=== PATIENT | female | born 1975 | race Caucasian/White ===

== ENCOUNTER 2021-12-19 07:28 | Emergency (ER) | payer SELFPAY ==
--- OUTSIDE RECORDS SUMMARY | 2021-12-19 07:32 | XMS REPORT | Continuity of Care Document ---
:1975 Author Organization [facility] t Address [facility] [address] [place] [address] [place] [address] Care Team Providers Name Role Phone Unavailable Unavailable Unavailable Problems This patient has no known problems. Allergies, Adverse Reactions, Alerts This patient has no known allergies or adverse reactions. Medications This patient has no known medications. Procedures This patient has no known procedures. Results Test Description Test Time Test Comments Results Result Comments Source PAP TEST, THINPREP, IMAGED 2021-10-20 23:01:42 Test Item Value Reference Range Interpretation Comme nts SOURCE: (test code = Cervical 8001) SLIDES: (test code = 1 8011) LMP: (test code = 8021) 09/30/2021 SPECIMEN ADEQUACY: (test (NOTE) Satisfactory for code = 64845) evaluation. Endocervical cells/transform ation zone component not i dentified. INTERPRETATION: (test NILM/NO EPITH. ---- code = 64553) ABNORMALITY;SEE BELOW ----- ------ NEG ATIVE FOR INTRAEPITHELIAL LESION OR MALIGNANCY (NIL M) --------- OTHER COMMENTS: (test (NOTE) Backgr ound material consistent code = 8081) with lubricant is present, whichinterferes with specimen processing. 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 The Pap test is a screening leonid t with an inherent, but l ow probability of error. Your patient should be reminded to consult you im mediately if she experiences any suspicious signs or sympto ms, regardless of her Pap test re sult. An alternate repor t format containing imag es or consolidated prior Pap history is avai lable as applicable. UNLESS OTHERWISE INDIC ATED, ALL TESTING PERFORMED [facility] PATHOLOGY [facility], [facility]. [address] [place] [address] 54 LABORATORY DIRE CTOR: FAROOQ DUBON M.D. CLIA NUMBER [id number] [facility] [place]. [id number] CT/NG, TMA, [id number] 22:56:05 Test Item Value Reference Range Interpretation Comments GONORRHEA, TMA NEGATIVE NEGATIVE Assay m ethodology is (test code = nucleic acid am plification 57367) by transcriptio n mediated amplif ication (TMA) utilizing the Aptima Combo 2 Assay. CHLAMYDIA, TMA NEGATIVE NEGATIVE Assay m ethodology is (test code = nucleic acid am plification 62811) by transcriptio n mediated amplif ication (TMA) utilizing the Aptima Combo 2 Assay. VAGINAL PATHOGENS DNA [id number] 13:32:16 Test Item Value Reference Range Interpretation Comments STEPHANIE SPECIES (test code = ) NEGATIVE NEGATIVE G. VAGINALIS (test code = ) POSITIVE NEGATIVE A T. VAGINALIS (test code = ) NEGATIVE NEGATIVE CBC W/AUTO DIFF WITH [id number] 04:08:11 Test Item Value Reference Range Interpretation Comments WBC (test code = 2.8 K/UL 3.5-11.0 L 1001) RBC (test code = 3.79 M/UL 3.80-5.40 L 1002) HEMOGLOBIN (test 8.4 G/DL 11.5-15.5 L code = 1003) HEMATOCRIT (test 27.8 % 34.0-45.0 L code = 1004) MCV (test code = 73.4 fL 80.0-99.0 L 1005) MCH (test code = 22.2 PG 25.0-33.0 L 1006) MCHC (test code = 30.2 G/DL 31.0-36.0 L 1007) RDW (test code = 18.0 % 11.5-15.0 H 1038) NEUTROPHILS (test 45.3 % code = 1008) LYMPHOCYTES (test 37.0 % code = 1010) MONOCYTES (test code 14.1 % = 1011) EOSINOPHILS (test 1.8 % code = 1012) BASOPHILS (test code 1.8 % = 1013) IMMATURE 0.0 % GRANULOCYTES (test code = 1036) NUCLEATED RBCS (test 0.0 /100 See_Comment [Autom ated message] code = 1065) WBC'S The system CodeRyte generated this result transmitted ref erence range: 0.0. The reference range was not used to int erpret this result as normal/abnormal . PLATELET COUNT (test 266 K/UL 130-400 code = 1015) ABSOLUTE NEUTROPHILS 1.29 K/UL 1.50-7.50 L (test code = 1066) ABSOLUTE LYMPHOCYTES 1.05 K/UL 1.00-4.00 (test code = 1067) ABSOLUTE MONOCYTES 0.40 K/UL 0.20-1.00 (test code = 1068) ABSOLUTE EOSINOPHILS 0.05 K/UL 0.00-0.50 (test code = 1040) ABSOLUTE BASOPHILS 0.05 K/UL 0.00-0.20 (test code = 1069) ABS IMMATURE 0.00 K/UL 0.00-0.10 GRANULOCYTES (test code = 1020) ABS NUCLEATED RBCS 0.00 K/UL 0.00-0.11 UN LESS (test code = 73022) OTHERWIS E INDICATED, ALL TESTING PER [facility]MED [facility] [place]. [address] [facility] [place] [address] LABORATORY DIRE CTOR: FAROOQ MULTANI M.D. CLIA NUMBER [id number] [place] O. [id number] RPR REFLEX TO T. PALLIDUM - [id number] 03:20:46 Test Item Value Reference Range Interpretation Comments RPR (test code = 05354) NON-REACTIVE NON-REACTIVE RPR TITER (test code = 3500) NOT INDIC. TITER NOT INDIC. HIV 1/2 4TH GEN, RFLX [id number] 03:09:58 Test Item Value Reference Range Interpretation Comments HIV 1/2 4TH GEN, RFLX CONF (test NON-REACTIVE NON-REACTIVE code = 3514) HEPATITIS PANEL, [id number] 03:09:58 Test Item Value Reference Range Interpretation Comments HEPATITIS A IgM (test NON-REACTIVE NON-REACTIVE code = 42332) HEPATITIS B CORE IgM NON-REACTIVE NON-REACTIVE (test code = 4644) HEPATITIS B SURF AG NON-REACTIVE NON-REACTIVE (test code = 2739) HEPATITIS C ANTIBODY NON-REACTIVE NON-REACTIVE (test code = 4675) INTERPRETATION (NOTE) Hepatiti s A HEPATITIS A: (test code sero logy shows no = 2552) evidence of acu te hepatitis A. INTERPRETATION (NOTE) Hepatiti s B HEPATITIS B: (test code sero logy shows no = 08712) evidence of acu te hepatitis B and no indication of exposure to hepatitis B vir us in the previous steph eight months. INTERPRETATION (NOTE) Hepatiti s C HEPATITIS C: (test code sero logy shows no = 00011) evidence of exposure to hepatitisC viru s at this time. It can take up to 12 months after exposure tothe hepatitis C vir us for antibodies to become detectab le in the bloo d in certain patients. VAGINAL PATHOGENS DNA [id number] 14:28:58 Test Item Value Reference Range Interpretation Comments STEPHANIE SPECIES (test POSITIVE NEGATIVE A code = 76367) G. VAGINALIS (test POSITIVE NEGATIVE A code = ) T. VAGINALIS (test NEGATIVE NEGATIVE UN LESS OTHERWISE code = 03028) INDICATED, ALL TESTING PERFORMED [facility] [address] [place] [address], [place] [address] LABORATORY DIR LOWELL: FAROOQ MULTANI M.D. ALEX NUMBER [id number] CAP ACCREDITATION N O. [id number]
[2021-12-19 08:07] LABS: Absolute Lymphocytes (CBC) 1.8 K/uL (0.7-4.9); Hematocrit 30.4 % (36.0-45.0); Lymphocytes % 36.6 % (15.3-44.8); MPV 7.7 fL (7.6-11.3); RBC Red Blood Cell Count 4.23 M/uL (3.86-4.86)
--- NOTE | 2021-12-19 08:10 | RAD REPORT ---
EXAM DESCRIPTION: Monica Single View12/19/2021 8:02 am CLINICAL HISTORY: Hypertension COMPARISON: none FINDINGS: The lungs appear clear of acute infiltrate. The heart is normal size IMPRESSION: No acute abnormalities displayed
[2021-12-19 08:34] LABS: Potassium 3.6 mmol/L (3.5-5.1); Troponin High Sensitivity 6.1 pg/mL (<58.9)
[2021-12-19] MEDS ORDERED: cloNIDine HCL 0.1 MG TAB ONE (09:40)
--- NOTE | 2021-12-19 10:05 | EDPHYS ---
Physician Documentation [facility] Name: Andressa Hutchinson Age: 46 yrs Sex: Female : 1975 Arrival Date: 12/19/2021 Time: 07:31 Bed 24 Private MD: ED Physician Thom Fishman HPI: 12/19 09:23 This 46 yrs old Female presents to ER via Ambulatory with complaints of Nausea, High rn Blood Pressure. 09:23 This 46 yrs old Female presents to ER via Ambulatory with complaints of high blood rn pressure, chest pain. 09:24 The patient has elevated blood pressure and discovered this at home. Onset: The rn symptoms/episode began/occurred at an unknown time. Modifying factors: The symptoms are aggravated by discontinuation of meds, The symptoms are alleviated by prescription meds. Associated signs and symptoms: Pertinent positives: chest pain, nausea, Pertinent negatives: dyspnea, visual changes, weakness. Severity of symptoms: At its worst the blood pressure was severe, in the emergency department the blood pressure is improved. The patient has experienced similar episodes in the past. The patient has been recently seen by a physician:. Pt reports high blood pressure at home, began to feel chest tightness and nausea, got concerned because mother had uncontrolled BP problems that led to strokes and dialysis. Just had her medication changed by pcp, just started new med, is scared to take it so hasn't been taking it regularly or as prescribed. Chest tightness already resolved. No sob. No focal weakness or neuro complaint. . 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 - Social history:: Smoking status: Patient reports the use of cigarette tobacco products, smokes one-half pack cigarettes per day. - Family history:: not pertinent. - Hospitalizations: : No recent hospitalization is reported. ROS: 09:24 Constitutional: Negative for fever, chills, and weight loss, Eyes: Negative for injury, rn pain, redness, and discharge, ENT: Negative for injury, pain, and discharge, Neck: Negative for injury, pain, and swelling, Cardiovascular: Negative for chest pain, palpitations, and edema, Respiratory: Negative for shortness of breath, cough, wheezing, and pleuritic chest pain, Abdomen/GI: Negative for abdominal pain, vomiting, diarrhea, and constipation, Back: Negative for injury and pain, : Negative for injury, bleeding, discharge, and swelling, MS/Extremity: Negative for injury and deformity, Skin: Negative for injury, rash, and discoloration, Neuro: Negative for weakness, numbness, tingling, and seizure. Exam: 09:24 Constitutional: This is a well developed, well nourished patient who is awake, alert, rn and in no acute distress. Head/Face: Normocephalic, atraumatic. Eyes: Pupils equal round and reactive to light, extra-ocular motions intact Neck: Trachea midline, no thyromegaly or masses palpated, and no cervical lymphadenopathy. Supple, full range of motion without nuchal rigidity, or vertebral point tenderness. No Meningismus. Cardiovascular: Regular rate and rhythm. No pulse deficits. Respiratory: No increased work of breathing, no retractions or nasal flaring. Abdomen/GI: Soft, non-tender Skin: Warm, dry with normal turgor. Normal color with no rashes, no lesions, and no evidence of cellulitis. MS/ Extremity: Pulses equal, no cyanosis. Neurovascular intact. Full, normal range of motion. Equal circumference. Neuro: Awake and alert, GCS 15, oriented to person, place, time, and situation. Cranial nerves II-XII grossly intact. Motor strength 5/5 in all extremities. Sensory grossly intact. Cerebellar exam normal. Vital Signs: 07:35 BP 173 / 91; Pulse 89; Resp 16; Temp 97.9; Pulse Ox 100% on R/A; Weight 82.55 kg; bp Height 5 ft. 2 in. (157.48 cm); Pain 5/10; 08:30 BP 156 / 110; Pulse 77; Resp 17; Pulse Ox 100% ; bp 09:30 BP 145 / 95; Pulse 80; Resp 16; Pulse Ox 98% ; bp 10:30 BP 142 / 94; Pulse 77; Resp 16; Pulse Ox 98% ; bp 07:35 Body Mass Index 33.29 (82.55 kg, 157.48 cm) bp MDM: 07:32 Patient medically screened. rn 10:03 Differential diagnosis: hypertensive crisis, Malignant HTN. Data reviewed: vital signs, rn nurses notes, lab test result(s), EKG, radiologic studies, and as a result, I will discharge patient. Counseling: I had a detailed discussion with the patient and/or guardian regarding: the historical points, exam findings, and any diagnostic results supporting the discharge/admit diagnosis, lab results, radiology results, the need for outpatient follow up, to return to the emergency department if symptoms worsen or persist or if there are any questions or concerns that arise at home. Counseling: I had a detailed discussion with the patient and/or guardian regarding: the presence of at least one elevated blood pressure reading (>120/80) during this emergency department visit. Response to treatment: the patient's symptoms have resolved after treatment, and as a result, I will discharge patient. Special discussion: I discussed with the patient/guardian in detail that at this point there is no indication for admission to the hospital. It is understood, however, that if the symptoms persist or worsen the patient needs to return immediately for re-evaluation. Based on the history and exam findings, there is no indication for further emergent testing or inpatient evaluation. I discussed with the patient/guardian the need to see the primary care provider for further evaluation of the symptoms. 12/19 07:43 Order name: Basic Metabolic Panel; Complete Time: 08:50 rn 12/19 07:43 Order name: CBC with Diff; Complete Time: 08:19 rn 12/19 07:43 Order name: Troponin HS; Complete Time: 08:50 rn 12/19 07:43 Order name: XRAY Chest (1 view); Complete Time: 08:19 rn 12/19 07:43 Order name: EKG; Complete Time: 07:44 rn 12/19 07:43 Order name: Cardiac monitoring; Complete Time: 08:15 rn 12/19 07:43 Order name: EKG - Nurse/Tech; Complete Time: 08:15 rn 12/19 07:43 Order name: IV Saline Lock; Complete Time: 08:15 rn 12/19 07:43 Order name: Labs collected and sent; Complete Time: 08:15 rn 12/19 07:43 Order name: O2 Per Protocol; Complete Time: 08:15 rn 12/19 07:43 Order name: O2 Sat Monitoring; Complete Time: 08:15 rn Administered Medications: 09:30 Drug: cloNIDine 0.1 mg Route: PO; bp 10:36 Follow up: Response: No adverse reaction bp Disposition Summary: 12/19/21 10:04 Discharge Ordered Location: Home rn Problem: new rn Symptoms: have improved rn Condition: Stable rn Diagnosis - Essential (primary) hypertension rn - Chest pain, unspecified rn Followup: rn - With: Private Physician - When: As needed - Reason: Recheck today's complaints, Re-evaluation by your physician Discharge Instructions: - Discharge Summary Sheet rn - Nonspecific Chest Pain, Adult rn - Hypertension, Adult rn Forms: - Medication Reconciliation Form rn - Thank You Letter rn - Antibiotic international controller - Prescription Opioid Use rn Signatures: Dispatcher [employer] EDThom Prater MD MD rn Peltier, Brian RN Socorro Costello RN RN vg1 Corrections: (The following items were deleted from the chart) 07:48 07:48 Allergies: No Known Allergies; vg1 vg1
--- NOTE | 2021-12-19 10:05 | ER ---
Nurse's Notes [facility] Name: Andressa Hutchinson Age: 46 yrs Sex: Female : 1975 Arrival Date: 12/19/2021 Time: 07:31 Bed 24 Private MD: Diagnosis: Essential (primary) hypertension;Chest pain, unspecified Presentation: 12/19 07:35 Chief complaint: Patient states: Woke up around 0300 feeling nauseated, chest tightness vg1 and headache, checked BP and stated 179/120, took BP medication of Chlorthalidone at 0430; stated still feeling nauseated and headache. 07:35 Coronavirus screen: Vaccine status: Patient reports receiving the 2nd dose of the covid vg1 vaccine. Client denies travel out of the [place] in the last 14 days. Ebola Screen: Patient denies exposure to infectious person. Patient denies travel to an Ebola-affected area in the 21 days before illness onset. Initial Sepsis Screen: Does the patient meet any 2 criteria? No. Patient's initial sepsis screen is negative. Does the patient have a suspected source of infection? No. Patient's initial sepsis screen is negative. Risk Assessment: Do you want to hurt yourself or someone else? Patient reports no desire to harm self or others. Onset of symptoms was December 19, 2021. 07:35 Method Of Arrival: Ambulatory vg1 07:35 Acuity: J LUIS 3 vg1 Triage Assessment: 07:48 General: Appears uncomfortable, Behavior is calm, cooperative. Pain: Complains of pain vg1 in chest Pain does not radiate. GI: Reports nausea. 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 - Social history:: Smoking status: Patient reports the use of cigarette tobacco products, smokes one-half pack cigarettes per day. - Family history:: not pertinent. - Hospitalizations: : No recent hospitalization is reported. Screenin:55 Abuse screen: Denies threats or abuse. Denies injuries from another. Nutritional bp screening: No deficits noted. Tuberculosis screening: No symptoms or risk factors identified. Fall Risk None identified. Assessment: 07:55 General: SEE TRIAGE NOTE. bp 09:30 Reassessment: No changes from previously documented assessment. Patient and/or family bp updated on plan of care and expected duration. Pain level reassessed. GI: Abdomen is non-distended. 10:35 Reassessment: PT D/C HOME AMBULATORY, DX WITH ESSENTIAL HTN. bp Vital Signs: 07:35 BP 173 / 91; Pulse 89; Resp 16; Temp 97.9; Pulse Ox 100% on R/A; Weight 82.55 kg; bp Height 5 ft. 2 in. (157.48 cm); Pain 5/10; 08:30 BP 156 / 110; Pulse 77; Resp 17; Pulse Ox 100% ; bp 09:30 BP 145 / 95; Pulse 80; Resp 16; Pulse Ox 98% ; bp 10:30 BP 142 / 94; Pulse 77; Resp 16; Pulse Ox 98% ; bp 07:35 Body Mass Index 33.29 (82.55 kg, 157.48 cm) bp ED Course: 07:31 Patient arrived in ED. rg4 07:32 Thom Fishman MD is Attending Physician. rn 07:33 Evan Partida, MELLY is Primary Nurse. bp 07:47 Triage completed. vg1 07:48 Arm band placed on. vg1 07:55 Patient has correct armband on for positive identification. Bed in low position. Call bp light in reach. Side rails up X2. 07:55 Inserted saline lock: 20 gauge in right forearm, using aseptic technique. Blood bp collected. 08:01 XRAY Chest (1 view) In Process Unspecified. EDMS 10:35 No provider procedures requiring assistance completed. IV discontinued, intact, bp bleeding controlled, No redness/swelling at site. Pressure dressing applied. Administered Medications: 09:30 Drug: cloNIDine 0.1 mg Route: PO; bp 10:36 Follow up: Response: No adverse reaction bp Medication: 07:55 VIS not applicable for this client. bp Outcome: 10:04 Discharge ordered by . rn 10:35 Discharged to home ambulatory. bp 10:35 Condition: stable 10:35 Discharge instructions given to patient, Instructed on discharge instructions, follow up and referral plans. Demonstrated understanding of instructions, follow-up care. 10:37 Patient left the ED. bp Signatures: Dispatcher [employer] EDMS Thom Fishman MD MD rn Mai Baker rg4 Evan Partida RN RN bp Socorro Baker RN RN vg1 Corrections: (The following items were deleted from the chart) 07:48 07:48 Allergies: No Known Allergies; vg1 vg1 10:36 07:35 BP 173 / 91; Pulse 89bpm; Resp 16bpm; Pulse Ox 100% RA; 82.55 kg; Height 5 ft. 2 bp in.; BMI: 33.2; Pain 5/10; vg1
[2021-12-19 11:06] VITALS: TEMP 97.9
[2021-12-19 11:09] VITALS: O2SAT 98
[2021-12-19 11:10] VITALS: BP 142/94
--- NOTE | 2021-12-20 11:09 | EKG ---
Test Date: 2021-12-19 Test Time: 07:39:31 Global Marketing Operations Manager: BP MEASUREMENT RESULTS: Intervals: Rate: 81 ID: [id number] QRSD: 94 QT: 356 QTc: 413 [place]: P: 54 ID: [id number] QRS: 62 T: 62 INTERPRETIVE STATEMENTS: Normal sinus rhythm Normal ECG No previous ECG available for comparison Electronically Signed On 12-20-21 11:05:11 CDT by Hollis Hoang
== END 2021-12-19 10:37 | disposition home or self-care (01) ==
LOC: ER 07:28
DX: I10 Essential (primary) hypertension (principal); R07.9 Chest pain, unspecified; F17.210 Nicotine dependence, cigarettes, uncomplicated
CPT/HCPCS: 36415; 71045; 80048; 84484; 85025; 93005; 99284

== ENCOUNTER 2023-04-17 11:10 | Emergency (ER) | payer SELFPAY ==
[2023-04-17] MEDS ORDERED: MORPHINE 4 MG/ML SYR ONE (11:34)
[2023-04-17] MEDS ORDERED: ONDANSETRON 4 MG/2 ML VIAL ONE (11:34)
[2023-04-17 11:42] LABS: Absolute Lymphocytes (CBC) 1.3 K/uL (0.7-4.9); Hematocrit 35.2 % (36.0-45.0); Lymphocytes % 21.2 % (15.3-44.8); MCV 87.2 fL (80-100); Platelets 296 thou/uL (152-406); RBC Red Blood Cell Count 4.04 M/uL (3.86-4.86)
[2023-04-17 11:46] LABS: Specific Gravity 1.028 (1.005-1.030); Urine Bacteria <20 /HPF (<20); Urine Bilirubin NEGATIVE (Negative); Urine Blood 1+ (Negative); Urine Clarity Clear (Clear); Urine Color Light-Yellow (Yellow); Urine Glucose NEGATIVE (Negative); Urine Mucus Slight /HPF (None Seen); Urine Protein TRACE (Negative); Urine RBC <5 /HPF (None Seen); Urine Urobilinogen Normal (Normal)
[2023-04-17 12:01] LABS: Albumin 3.8 g/dL (3.4-5.0); Bilirubin Total 0.4 mg/dL (0.2-1.0); Potassium 3.6 mEq/L (3.5-5.1); Protein, Total 7.6 g/dL (6.4-8.2)
[2023-04-17 12:02] LABS: Specific Gravity 1.028 (1.005-1.030)
--- OUTSIDE RECORDS SUMMARY | 2023-04-17 12:42 | XMS REPORT | Continuity of Care Document ---
:1975 Author Organization [facility] Address [address] [place] [address] [place] [address] Care Team Providers Name Role Phone Unavailable Unavailable Unavailable Problems This patient has no known problems. Allergies, Adverse Reactions, Alerts This patient has no known allergies or adverse reactions. Medications This patient has no known medications. Procedures This patient has no known procedures. Encounters Start End Encounter Admission Attending Care Care Encounter Source Date/Time Date/Time Type Type Clinicians Facility Department ID 2023-04-16 2023-04-16 Outpatient [facility] 09:50:46 09:50:46 [id number] [facility] 2023-04-03 2023-04-03 Outpatient SFA [facility] 10:10:27 10:10:27 [id number] [facility] [place] 2023-04-02 2023-04-02 Outpatient SFA [facility] 13:15:21 13:15:21 [id number] [facility] 2023-03-31 2023-03-31 Outpatient SFA [facility] [place] 13:36:53 13:36:53 [id number] [facility] 2023-02-16 2023-02-16 Outpatient SFA [facility] [place] 09:39:58 09:39:58 [id number] [facility] 2023-01-13 2023-01-13 Outpatient SFA [facility] [place] 09:35:46 09:35:46 [id number] [facility] 2022-11-16 2022-11-16 Outpatient SFA SFA [id number] [place] 10:58:30 10:58:30 [id number] [facility] 2022-08-08 2022-08-08 Outpatient SFA SFA [id number] [place] 15:32:54 15:32:54 [id number] [facility] 2022-07-25 2022-07-25 Outpatient SFA SFA [id number] [place] 13:27:49 13:27:49 [id number] [facility] [place] 2022-06-20 2022-06-20 Outpatient [facility] [place] 16:28:05 16:28:05 [facility] [place] 2022-06-16 2022-06-16 Outpatient [facility] [place] 16:46:34 16:46:34 [facility] [place] 2022-05-02 2022-05-02 Outpatient [facility] [place] 15:35:31 15:35:31 [facility] [place] Results Test Description Test Time Test Comments Results Result Comments Source CBC W/AUTO DIFF WITH PLATELETS 2023-04-04 03:35:44 Test Item Value Reference Range Interpretation Comme nts WBC (test code = 1001) 3.5 K/UL 3.5-11.0 RBC (test code = 1002) 3.63 M/UL 3.80-5.40 L HEMOGLOBIN (test code = 10.6 G/DL 11.5-15.5 L 1003) HEMATOCRIT (test code = 32.7 % 34.0-45.0 L 1004) MCV (test code = 1005) 90.1 fL 80.0-99.0 MCH (test code = 1006) 29.2 PG 25.0-33.0 MCHC (test code = 1007) 32.4 G/DL 31.0-36.0 RDW (test code = 1038) 13.1 % 11.5-15.0 NEUTROPHILS (test code = 52.9 % 1008) LYMPHOCYTES (test code = 33.0 % 1010) MONOCYTES (test code = 1011) 11.6 % EOSINOPHILS (test code = 1.1 % 1012) BASOPHILS (test code = 1013) 1.4 % IMMATURE GRANULOCYTES (test 0.0 % code = 1036) NUCLEATED RBCS (test code = 0.0 /100 WBC'S See_Comment [Automated message] The 1065) system which ge nerated this result transmit jaz reference range: 0.0. The reference range was not u sed to interpret this result as normal/abnormal . PLATELET COUNT (test code = 342 K/UL 583-497 6242) ABSOLUTE NEUTROPHILS (test 1.86 K/UL 1.50-7.50 code = 1066) ABSOLUTE LYMPHOCYTES (test 1.16 K/UL 1.00-4.00 code = 1067) ABSOLUTE MONOCYTES (test 0.41 K/UL 0.20-1.00 code = 1068) ABSOLUTE EOSINOPHILS (test 0.04 K/UL 0.00-0.50 code = 1040) ABSOLUTE BASOPHILS (test 0.05 K/UL 0.00-0.20 code = 1069) ABS IMMATURE GRANULOCYTES 0.00 K/UL 0.00-0.10 (test code = 1020) ABS NUCLEATED RBCS (test 0.00 K/UL 0.00-0.11 UN LESS OTHERWISE INDICATED, code = 92691) ALL TESTING PE RFORMED AT [facility] PATHOL [facility], [facility]. [address] [place], [place] [address] LABORATORY DIRE CTOR: PEBBLES BAPTISTE M.D. CLIA NUMBER [id number] CAP ACCREDITATION N O. [id number] VAGINAL PATHOGENS DNA [id number] 11:15:25 Test Item Value Reference Range Interpretation Comments JANENE SPECIES NEGATIVE NEGATIVE (test code = ) G. VAGINALIS POSITIVE NEGATIVE A (test code = ) T. VAGINALIS NEGATIVE NEGATIVE Note: The BD A ffirm VPIII (test code = Microbial Ident ification ) Testis a DNA pr obe test intended for us e in the detectionand id entification of Janene spec ies, Gardnerellavagi nalis and Trichomonas vag inalis nucleic acid. U NLESS OTHERWISE INDIC ATED, ALL TESTING PERFORM ED AT [facility] PATHOL [facility]. [address] [place], [place] [address] LABORATORY DIRE CTOR: PEBBLES BAPTISTE M.D. CLIA NUMBER [id number] CAP ACCREDITATION N O. [id number] LIPID [id number] 03:55:48 Test Item Value Reference Range Interpretation Comments CHOLESTEROL (test 194 MG/DL <200 code = 2210) TRIGLYCERIDES (test 411 MG/DL <150 H code = 2232) HDL CHOLESTEROL 43 MG/DL >39 (test code = 2220) CALC LDL CHOL (test (NOTE) MG/DL <100 UNABLE T O CALCULATE A code = 2237) VALID LDL BRETT STEROL WHEN THE TRIGLYCERIDEVAL UE IS GREATER THAN 40 0 MG/DL.UNABLE TO CALCULATE A [place]OOK[place]NN ID LDL CHOLESTEROL WHE N THE TRIGLYCERIDEVAL UE IS GREATER THAN 40 0 MG/DL. NOTE: CALCULATE D LDL IS BASED ON JEFFY -CHUA METHOD WHICHINC LUDES ADJUSTABLE TRIGLYCERIDE:VL DL CHOLESTEROL RAT IO.THIS FACTOR VARIES B Y MEASURED TRIGLY CERIDE AND NON-HDLCHOL ESTEROL CONCENTRATIONS WITH INCREASED CALCU LATED LDL SEENIN HIGH ER TRIGLYCERIDE OR LOWER NON-HDL SPECIME NS. FOR MOREINFORMATION , SEE CLIENT ANNOUNCE MENT AT [email or web address] CalcLDL-C RISK RATIO LDL/HDL (NOTE) RATIO <3.22 UNABLE T O CALCULATE (test code = 2238) UNLESS OT HERWISE INDICATED, ALL TESTING PERFORMED AT [facility]. [address] [place] [address] 4 LABORATORY DIRE CTOR: PEBBLES BAPTISTE M.D. [place] NUMBER [id number] [facility] [id number] COMPREHENSIVE METABOLIC [id number] 03:07:15 Test Item Value Reference Range Interpretation Comments GLUCOSE (test code = 115 MG/DL 70-99 H 2216) BUN (test code = 20 MG/DL 6-20 2207) CREATININE (test 0.75 MG/DL 0.60-1.30 code = 2214) eGFR (2020 CKD-EPI) 101 >60 (test code = 62758) ML/MIN/1.73 CALC BUN/CREAT (test 27 RATIO 6-28 code = 2235) SODIUM (test code = 140 MEQ/L 401-690 4257) POTASSIUM (test code 4.5 MEQ/L 3.5-5.4 = 2228) CHLORIDE (test code 100 MEQ/L 95-107 = 2215) CARBON DIOXIDE (test 28 MEQ/L 19-31 code = 2206) CALCIUM (test code = 9.8 MG/DL 8.5-10.5 2208) PROTEIN, TOTAL (test 7.4 G/DL 6.1-8.3 code = 2229) ALBUMIN (test code = 4.8 G/DL 3.5-5.2 2200) CALC GLOBULIN (test 2.6 G/DL 1.9-3.7 code = 2240) CALC A/G RATIO (test 1.8 RATIO 1.0-2.6 code = 2234) BILIRUBIN, TOTAL 0.3 MG/DL See_Comment [Automated message] (test code = 2207) The syste m which generated this result transmit jaz reference range : <=1.2. The refe rence range was not u sed to interpret th is result as normal/abnormal . ALKALINE PHOSPHATASE 67 U/L 40-115 (test code = 2204) AST (test code = 23 U/L 9-40 2217) ALT (test code = 26 U/L 5-40 2218) LIPID [id number] 03:07:15 Test Item Value Reference Range Interpretation Comments CHOLESTEROL (test 210 MG/DL <200 H code = 2210) TRIGLYCERIDES (test 431 MG/DL <150 H code = 2232) HDL CHOLESTEROL 60 MG/DL >39 (test code = 2220) CALC LDL CHOL (test (NOTE) MG/DL <100 UNABLE T O CALCULATE A code = 2237) VALID LDL BRETT STEROL WHEN THE TRIGLYCERIDEVAL UE IS GREATER THAN 40 0 MG/DL.UNABLE TO CALCULATE A [place]OOK[place]NN ID LDL CHOLESTEROL WHE N THE TRIGLYCERIDEVAL UE IS GREATER THAN 40 0 MG/DL. NOTE: CALCULATE D LDL IS BASED ON JEFFY -CHUA METHOD WHICHINC LUDES ADJUSTABLE TRIGLYCERIDE:VL DL CHOLESTEROL RAT IO.THIS FACTOR VARIES B Y MEASURED TRIGLY CERIDE AND NON-HDLCHOL ESTEROL CONCENTRATIONS WITH INCREASED CALCU LATED LDL SEENIN HIGH ER TRIGLYCERIDE OR LOWER NON-HDL SPECIME NS. FOR MOREINFORMATION , SEE CLIENT ANNOUNCE MENT AT [email or web address] CalcLDL-C RISK RATIO LDL/HDL (NOTE) RATIO <3.22 UNABLE TO CALCULATE (test code = 2238) IRON, [id number] 03:07:15 Test Item Value Reference Range Interpretation Comments IRON, SERUM (test 47 UG/DL 37-145 UNLESS OT HERWISE code = 2222) INDICATED, ALL TESTING PERFORMED [facility] [address] [place] [address], [place] [id number] [place] [address] DIRECTOR: FAROOQ DUBON M.D. CLIA NUMBER [id number] CAP ACCREDITATION N O. [id number] CBC W/AUTO DIFF WITH [id number] 02:38:20 Test Item Value Reference Range Interpretation Comments WBC (test code = 5.4 K/UL 3.5-11.0 1001) RBC (test code = 4.16 M/UL 3.80-5.40 1002) HEMOGLOBIN (test code 11.8 G/DL 11.5-15.5 = 1003) HEMATOCRIT (test code 34.9 % 34.0-45.0 = 1004) MCV (test code = 83.9 fL 80.0-99.0 1005) MCH (test code = 28.4 PG 25.0-33.0 1006) MCHC (test code = 33.8 G/DL 31.0-36.0 1007) RDW (test code = 16.1 % 11.5-15.0 H 1038) NEUTROPHILS (test 57.6 % code = 1008) LYMPHOCYTES (test 31.0 % code = 1010) MONOCYTES (test code 8.6 % = 1011) EOSINOPHILS (test 1.5 % code = 1012) BASOPHILS (test code 1.1 % = 1013) IMMATURE GRANULOCYTES 0.2 % (test code = 1036) NUCLEATED RBCS (test 0.0 /100 WBC'S See_Comment [Aut omated code = 1065) message] The sy stem which generated this result transmitted reference range : 0.0. The refere nce range was not u sed to interpret th is result as normal/abnormal . PLATELET COUNT (test 320 K/UL 130-400 code = 1015) ABSOLUTE NEUTROPHILS 3.10 K/UL 1.50-7.50 (test code = 1066) ABSOLUTE LYMPHOCYTES 1.67 K/UL 1.00-4.00 (test code = 1067) ABSOLUTE MONOCYTES 0.46 K/UL 0.20-1.00 (test code = 1068) ABSOLUTE EOSINOPHILS 0.08 K/UL 0.00-0.50 (test code = 1040) ABSOLUTE BASOPHILS 0.06 K/UL 0.00-0.20 (test code = 1069) ABS IMMATURE 0.01 K/UL 0.00-0.10 GRANULOCYTES (test code = 1020) ABS NUCLEATED RBCS 0.00 K/UL 0.00-0.11 (test code = 00448) VAGINAL PATHOGENS DNA [id number] 16:28:14 Test Item Value Reference Range Interpretation Comments JANENE SPECIES (test POSITIVE NEGATIVE A code = ) G. VAGINALIS (test POSITIVE NEGATIVE A code = ) T. VAGINALIS (test NEGATIVE NEGATIVE UNLESS O THERWISE code = ) INDICATED, ALL TESTING PERFORMED [facility] [address] [place], [place] [address] LABORATORY DIRE CTOR: FAROOQ MULTANI M.D. CLIA NUMBER [id number] [place] [id number] CULTURE, [id number] 09:43:42SPECIMEN NUMBER: [id number] CULTURE, URINE SPECIMEN NUMBER: [id number] SPECIMEN COMMENT: URINE SOURCE:URINE REPORT STATUS: FINAL ISOLATE NUMBER 1: IDENTIFICATION: 06/20/2022 <10,000 CFU/ML BETA-STREPT OCOCCUS GROUP B ADDITIONAL OBSERVATIONS: PENICILLIN AND AMPICILLIN ARE DRUGS OF CHOICE FOR TREATMENTOF B-HEMOLYTIC STREPTOCOCCAL INFECTIONS. SUSCEPTIBILITY TESTING OF PENICILLIN AND OTHER B-LACTAMS APPROVED BY THE [place] [employer]OD AND DRUG ADMINISTRATION FOR TREATMENT OF B-HEMOLYTIC STREPTOCOCCAL INFECTIONS NEED NOT BE PERFORMED ROUTINELY. ADDITIONAL OBSERVATIONS: 06/20/2022 10-50,000 CFU/ML UROGENITAL FLORAPRESENT NO COMMON PATHOGENSIRON, [id number] 06:42:55 Test Item Value Reference Range Interpretation Comments IRON, SERUM (test 198 UG/DL 37-145 H UNLESS OT HERWISE code = 2222) INDICATED, ALL TESTING PERFORMED [facility] PATHOLOGY [facility] [employer]. [address] [place] [address] [facility] DIRECTOR: FRAOOQ DUBON M.D. CLIA NUMBER [id number] CAP ACCREDITATION N O. [id number] LIPID [id number] 06:56:09 Test Item Value Reference Range Interpretation Comments CHOLESTEROL (test 157 MG/DL <200 code = 2210) TRIGLYCERIDES (test 252 MG/DL <150 H code = 2232) HDL CHOLESTEROL (test 61 MG/DL >39 code = 2220) CALC LDL CHOL (test 66 MG/DL <100 NOTE: C ALCULATED LDL code = 2237) IS BASED ON JEFFY-CHUA METHOD WHICHINCLUDES ADJUSTABLE TRIGLYCERIDE:VL DL CHOLESTEROL RAT IO.THIS FACTOR VARIES B Y MEASURED TRIGLY CERIDE AND NON-HDLCHOL ESTEROL CONCENTRATIONS WITH INCREASED CALCU LATED LDL SEENIN HIGH ER TRIGLYCERIDE OR LOWER NON-HDL SPECIME NS. FOR MOREINFORMATION , SEE CLIENT ANNOUNCE MENT AT [email or web address] [email or web address] [email or web address] LDL/HDL 1.08 RATIO <3.22 UNLESS O THERWISE (test code = 2238) INDICATED , ALL TESTING PERFORMED [facility] [place]. [address] [facility] [place] [address] FRANKIE DALEY DIRECTOR: FAROOQ DUBON M.D. CLIA NUMBER [id number] CAP ACCREDITATION N O. [id number] CBC W/AUTO DIFF WITH [id number] 05:49:59 Test Item Value Reference Range Interpretation Comments WBC (test code = 4.8 K/UL 3.5-11.0 1001) RBC (test code = 4.39 M/UL 3.80-5.40 1002) HEMOGLOBIN (test code 10.9 G/DL 11.5-15.5 L = 1003) HEMATOCRIT (test code 35.0 % 34.0-45.0 = 1004) MCV (test code = 79.7 fL 80.0-99.0 L 1005) MCH (test code = 24.8 PG 25.0-33.0 L 1006) MCHC (test code = 31.1 G/DL 31.0-36.0 1007) RDW (test code = 22.4 % 11.5-15.0 H 1038) NEUTROPHILS (test 63.1 % code = 1008) LYMPHOCYTES (test 25.5 % code = 1010) MONOCYTES (test code 9.4 % = 1011) EOSINOPHILS (test 0.8 % code = 1012) BASOPHILS (test code 1.0 % = 1013) IMMATURE GRANULOCYTES 0.2 % (test code = 1036) NUCLEATED RBCS (test 0.0 /100 WBC'S See_Comment [Aut omated code = 1065) message] The sy stem which generated this result transmitted reference range : 0.0. The refere nce range was not u sed to interpret th is result as normal/abnormal . PLATELET COUNT (test 276 K/UL 130-400 code = 1015) ABSOLUTE NEUTROPHILS 3.02 K/UL 1.50-7.50 (test code = 1066) ABSOLUTE LYMPHOCYTES 1.22 K/UL 1.00-4.00 (test code = 1067) ABSOLUTE MONOCYTES 0.45 K/UL 0.20-1.00 (test code = 1068) ABSOLUTE EOSINOPHILS 0.04 K/UL 0.00-0.50 (test code = 1040) ABSOLUTE BASOPHILS 0.05 K/UL 0.00-0.20 (test code = 1069) ABS IMMATURE 0.01 K/UL 0.00-0.10 GRANULOCYTES (test code = 1020) ABS NUCLEATED RBCS 0.00 K/UL 0.00-0.11 (test code = 12476) PAP TEST, THINPREP, [id number] 23:01:42 Test Item Value Reference Range Interpretation Comments SOURCE: (test Cervical code = 8001) SLIDES: (test 1 code = 8011) LMP: (test code 09/30/2021 = 8021) SPECIMEN (NOTE) Satisfactory f or ADEQUACY: (test evaluation. code = 49444) Endocervical cells/transform ation zone component not identified. INTERPRETATION: NILM/NO EPITH. (test code = ABNORMALITY;SEE 39466) BELOW -------- - NEGATIVE FOR INTRAEPITHELIAL LESION OR MALIGNANCY ( NILM) -------- -------- -------- ---- OTHER COMMENTS: (NOTE) Background m aterial (test code = consistent with 8081) lubricant is pr esent, whichinterferes with specimen proces sing. [employer] Tyeshak : (test code = SULAIMAN Parkinson(ASCP 8101) ) IAC LOCATION: (test (NOTE) Specimens pr ocessed and code = 03227) interpreted at [facility], [address] [facility], [place] [address], Phone: , CLIA: [id number] CPT: (test code (NOTE) 99602 UNLESS OTHERWISE = 8140) INDICATED, COMP UTER AIDED AND CYTOTECHNOLOGIS T SCREENING PERFO RMED. The Pap test is a screening test with an inherent, but l ow probability of error. Your patient sh ould be reminded to con sult you immediately if she experiences any suspicious sign s or symptoms, regar dless of her Pap test re sult. An alternate repor t format containing imag es or consolidated pr ior Pap history is avai lababel as applicable. UNL ESS OTHERWISE INDIC ATED, ALL TESTING PER FORMED [facility] [place]. [address] [place] [address] LABORATOR Y DIRECTOR: FAROOQ DUBON M.D. IA NUMBER [id number] CAP ACCREDITATION N O. [id number] CT/NG, TMA, [id number] 22:56:05 Test Item Value Reference Range Interpretation Comments GONORRHEA, TMA NEGATIVE NEGATIVE Assay method ology is (test code = nucleic acid am plification 18256) by transcriptio n mediated amplification ( TMA) utilizing the A ptima Combo 2 Assay. CHLAMYDIA, TMA NEGATIVE NEGATIVE Assay method ology is (test code = nucleic acid am plification 35767) by transcriptio n mediated amplification ( TMA) utilizing the A ptima Combo 2 Assay. VAGINAL PATHOGENS DNA [id number] 13:32:16 Test Item Value Reference Range Interpretation Comments JANENE SPECIES (test code = ) NEGATIVE NEGATIVE G. VAGINALIS (test code = ) POSITIVE NEGATIVE A T. VAGINALIS (test code = ) NEGATIVE NEGATIVE CBC W/AUTO DIFF WITH [id number] 04:08:11 Test Item Value Reference Range Interpretation [...] message] code = 1065) WBC'S The system [employer] generated this result transmitted ref erence range: [...] 1020) ABS NUCLEATED RBCS 0.00 K/UL 0.00-0.11 UNLESS O THERWISE (test code = 81372) INDICATE D, ALL TESTING PERFORM ED [facility], [facility]. [address] [place], [place] [address] [place] [address] DIRECTOR: FAROOQ DUOBN M.D. IA NUMBER [id number] CAP ACCREDITATION N O. [id number] RPR REFLEX TO T. PALLIDUM - [id number] 03:20:46 Test Item Value Reference Range Interpretation Comments RPR (test code = 26558) NON-REACTIVE NON-REACTIVE RPR TITER (test code = 3500) NOT INDIC. TITER NOT INDIC. HIV 1/2 4TH GEN, RFLX [id number] 03:09:58 Test Item Value Reference Range Interpretation Comments HIV 1/2 4TH GEN, RFLX CONF (test NON-REACTIVE NON-REACTIVE code = 3514) HEPATITIS PANEL, [id number] 03:09:58 Test Item Value Reference Range Interpretation Comments HEPATITIS A IgM (test NON-REACTIVE NON-REACTIVE code = 69474) HEPATITIS B CORE IgM NON-REACTIVE NON-REACTIVE (test code = 4644) HEPATITIS B SURF AG NON-REACTIVE NON-REACTIVE (test code = 2739) HEPATITIS C ANTIBODY NON-REACTIVE NON-REACTIVE (test code = 4675) INTERPRETATION (NOTE) Hepatitis A HEPATITIS A: (test code sero logy shows no = 2552) evidence of acu te hepatitis A. INTERPRETATION (NOTE) Hepatitis B HEPATITIS B: (test code sero logy shows no = 99956) evidence of acu te hepatitis B and no indication of exposure to hepatitis B vir us in the previous steph eight months. INTERPRETATION (NOTE) Hepatitis C HEPATITIS C: (test code sero logy shows no = 77277) evidence of exposure to hepatitisC viru s at this time. I t can take up to 12 months after exposure tothe hepatitis C vir us for antibodies to become detectab le in the blood in certain patient s. VAGINAL PATHOGENS DNA [id number] 14:28:58 Test Item Value Reference Range Interpretation Comments JANENE SPECIES (test POSITIVE NEGATIVE A code = ) G. VAGINALIS (test POSITIVE NEGATIVE A code = ) T. VAGINALIS (test NEGATIVE NEGATIVE UNLESS O THERWISE code = 68485) INDICATED, ALL TESTING PERFORMED [facility] [address] [place] [address] 4 LABORATORY DIRE CTOR: FAROOQ MULTANI M.D. CLIA NUMBER [id number] [place] [id number]
--- NOTE | 2023-04-17 13:06 | RAD REPORT ---
EXAM DESCRIPTION: CT - Abdomen Pelvis W Contrast - 04/17/2023 12:14 pm CLINICAL HISTORY: ABD PAIN COMPARISON: No comparisons TECHNIQUE: Thin cut axial CT imaging of the abdomen and pelvis was performed following intravenous a dministration of 100 mL Isovue 300. Multiplanar reformats were generated and reviewed. All CT scans are performed using dose optimization technique as appropriate and may include automated exposure control or mA/KV adjustment according to patient size. FINDINGS: 4 millimeter nodule in the left lower lobe, probably benign given size and requires no add itional follow-up The liver, spleen, adrenal glands, and pancreas show no suspicious findings. Gallbladder and biliary tree are also without suspicious finding. Symmetric renal function is seen with no hydronephrosis or suspicious renal mass. No dilated bowel loops or bowel wall thickening. Appendix is unremarkable. No free air, free fluid or inflammatory stranding. No hernia, mass or bulky lymphadenopathy. Uterus is bulky. Crescentic region of heterogeneous hypoattenuation along the lower segment/cervix re gion,, appears to be along the endometrial/ cervical canal, measuring 5.6 x 2.5 x 2.8 cm, not well ch aracterized. Fluid accumulation with layering hyperdense material in the upper aspect of the vagina. Heterogeneous posterior wall 3.1 cm fibroid is also seen. Urinary bladder is suboptimally distended l imiting evaluation. No suspicious bony findings. IMPRESSION: No acute intra-abdominal process. Heterogeneous region of hypoattenuation along the lower uterine segment and cervix, appearing to be a long the endometrial/cervical canal. This could relate to retained blood products/clot material, avila dino is not well characterized, and an underlying cervical canal polyp or mass cannot be entirely excl uded. Additional evaluation by transvaginal/pelvic ultrasound is recommended.
--- NOTE | 2023-04-17 15:39 | RAD REPORT ---
EXAM DESCRIPTION: US - Pelvis Complete - 04/17/2023 2:09 pm CLINICAL HISTORY: PAIN AND BLEEDING COMPARISON: No comparisons TECHNIQUE: Sonographic grayscale and color flow images of the pelvis were obtained through transabd ominal and transvaginal approaches. FINDINGS: The uterus is normal in size and morphology, slightly retroflexed, with normal echotexture . Posterior wall fibroid near the fundus/ mid segment measuring up to 3.3 cm in greatest dimension. T he uterus measures 10.5 cm in length. The endometrial stripe measures 1.4 cm in thickness, within normal limits, given that the patient sta leonid active menstruation. Distended low each joint segment/cervical canal, with heterogeneous hypoecho ic fluid/blood products. No appreciable solid components or blood flow within the canal content. Both ovaries are normal in size, shape and echotexture. The right ovary measures 2.8 x 2.8 x 1.5 cm. The left ovary measures 2.6 x 1.3 x 2.1 cm. No ovarian or parovarian lesions. No adnexal masses. Normal Doppler blood flow was demonstrated to both ovaries. No significant pelvic ascites. IMPRESSION: Avascular heterogeneous fluid within low uterine segment/cervical canal is suggestive of blood products/ clots. No appreciable solid components or polyps. Posterior wall 3.3 cm fibroid. No adnexal abnormalities.
--- NOTE | 2023-04-17 15:39 | RAD REPORT ---
EXAM DESCRIPTION: US - Transvaginal Study Probe - 04/17/2023 2:12 pm CLINICAL HISTORY: ABD PAIN COMPARISON: Pelvis Complete dated 04/17/2023; Abdomen Pelvis W Contrast dated 04/17/2023 TECHNIQUE: Sonographic grayscale and color flow images of the pelvis were obtained through transab dominal and transvaginal approaches. FINDINGS: The uterus is normal in size and morphology, slightly retroflexed, with normal echotexture . Posterior wall fibroid near the fundus/ mid segment measuring up to 3.3 cm in greatest dimension. T he uterus measures 10.5 cm in length. The endometrial stripe measures 1.4 cm in thickness, within normal limits, given that the patient sta leonid active menstruation. Distended low each joint segment/cervical canal, with heterogeneous hypoecho ic fluid/blood products. No appreciable solid components or blood flow within the canal content. Both ovaries are normal in size, shape and echotexture. The right ovary measures 2.8 x 2.8 x 1.5 cm. The left ovary measures 2.6 x 1.3 x 2.1 cm. No ovarian or parovarian lesions. No adnexal masses. Normal Doppler blood flow was demonstrated to both ovaries. No significant pelvic ascites. IMPRESSION: Avascular heterogeneous fluid within low uterine segment/cervical canal is suggestive of blood products/ clots. No appreciable solid components or polyps. Posterior wall 3.3 cm fibroid. No adnexal abnormalities.
--- NOTE | 2023-04-17 15:45 | ER ---
Nurse's Notes [facility] Name: Andressa Hutchinson Age: 47 yrs Sex: Female : 1975 Arrival Date: 04/17/2023 Time: 11:10 Bed 12 Private MD: Diagnosis: Uterine fibroid;Lower abdominal pain, unspecified Presentation: 04/17 11:16 Chief complaint: Patient states: Nausea, lower abdominal pain since this morning. LMP jl7 started yesterday, bleeding stopped today with pain. Coronavirus screen: At this time, the client does not indicate any symptoms associated with coronavirus-19. Ebola Screen: No symptoms or risks identified at this time. Initial Sepsis Screen: Does the patient meet any 2 criteria? No. Patient's initial sepsis screen is negative. Does the patient have a suspected source of infection? No. Patient's initial sepsis screen is negative. Risk Assessment: Do you want to hurt yourself or someone else? Patient reports no desire to harm self or others. Onset of symptoms was April 17, 2023. 11:16 Method Of Arrival: Ambulatory jl7 11:16 Acuity: J LUIS 3 jl7 Triage Assessment: 11:17 General: Appears in no apparent distress. uncomfortable, Behavior is calm, cooperative, jl7 appropriate for age. Pain: Complains of pain in right lower quadrant and left lower quadrant. GI: Reports nausea. 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 - Social history:: Smoking status: unknown. Screenin:32 [facility] ED Fall Risk Assessment (Adult) History of falling in the last 3 months, mb9 including since admission No falls in past 3 months (0 pts) Confusion or Disorientation No (0 pts) Intoxicated or Sedated No (0 pts) Impaired Gait No (0 pts) Mobility Assist Device Used No (0 pt) Altered Elimination No (0 pt) Score/Fall Risk Level 0 - 2 = Low Risk Oriented to surroundings, Maintained a safe environment, Educated pt \T\ family on fall prevention, incl call for assistance when getting out of bed. Abuse screen: Denies threats or abuse. Nutritional screening: No deficits noted. Tuberculosis screening: No symptoms or risk factors identified. Assessment: 14:10 Reassessment: No changes from previously documented assessment. Patient and/or family mb9 updated on plan of care and expected duration. Pain level reassessed. Patient is alert, oriented x 3, equal unlabored respirations, skin warm/dry/pink. 15:31 Reassessment: No changes from previously documented assessment. Patient and/or family mb9 updated on plan of care and expected duration. Pain level reassessed. Patient is alert, oriented x 3, equal unlabored respirations, skin warm/dry/pink. Vital Signs: 11:16 BP 145 / 94; Pulse 91; Resp 17; Temp 97.7; Pulse Ox 100% ; Weight 84.37 kg; Pain 10/10; jl7 14:12 BP 118 / 88; Pulse 65; Resp 16; Pulse Ox 100% on R/A; Pain 0/10; mb9 11:16 Pain Scale: Adult jl7 14:12 Pain Scale: Adult mb9 ED Course: 11:13 Patient arrived in ED. mg5 11:13 Candice Doyle FNP is [facility]. jh7 11:13 Froilan Encinas MD is Attending Physician. 7 11:17 Triage completed. jl7 11:17 Arm band placed on right wrist. Patient placed in an exam room. jl7 11:20 Hortencia Crump, MELLY is Primary Nurse. jl7 11:20 Urinalysis w/ reflexes Sent. kj1 11:28 Initial lab(s) drawn, by ma, sent to lab. Inserted saline lock: 22 gauge in right kj1 antecubital area, using aseptic technique. Blood collected. 12:00 Placed in gown. Bed in low position. Call light in reach. Side rails up X 1. Client mb9 placed on continuous cardiac and pulse oximetry monitoring. NIBP monitoring applied. 12:16 CT Abd/Pelvis - IV Contrast Only In Process Unspecified. EDMS 14:10 Pelvis Complete In Process Unspecified. EDMS 14:11 US Transvaginal Study (Probe) In Process Unspecified. EDMS 15:32 No provider procedures requiring assistance completed. mb9 15:50 IV discontinued, intact, bleeding controlled, No redness/swelling at site. Pressure mb9 dressing applied. Administered Medications: 11:28 Drug: NS 0.9% IV 1000 ml IV at 1 bolus Per protocol; 1000 mL bolus Route: IV; Rate: 1 jl7 bolus; Site: right antecubital; 11:28 Drug: Ondansetron IVP 4 mg IVP once; over 2 minutes Route: IVP; Site: right antecubital;jl7 11:29 Drug: morphine IVP or IV 4 mg IVP once over 4 mins Route: IVP; Infused Over: 4 mins; jl7 Site: right antecubital; Medication: 15:32 VIS not applicable for this client. mb9 Outcome: 15:45 Discharge ordered by . silvina 15:50 Discharged to home ambulatory, mb9 15:50 Condition: stable 15:50 Discharge instructions given to patient, Instructed on discharge instructions, follow up and referral plans. Demonstrated understanding of instructions, follow-up care, 15:51 Patient left the ED. mb9 Signatures: Dispatcher [employer] Hortencia Cox, RN RN [email or web address] Jil Martinez kj1 Candice Doyle, OPTICAL GOODS DRILLING MACHINE OPERATOR [employer] GOODS DRILLING MACHINE OPERATOR jhMelissa Olivera RN RN mb9 Anna Oneil mg5
--- NOTE | 2023-04-17 15:45 | EDPHYS ---
Physician Documentation [facility] Name: Andressa Hutchinson Age: 47 yrs Sex: Female : 1975 Arrival Date: 04/17/2023 Time: 11:10 Bed 12 Private MD: ED Physician Froilan Encinas HPI: 04/17 11:17 This 47 yrs old Female presents to ER via Ambulatory with complaints of Abdominal Pain. jh7 11:17 The patient presents with abdominal pain right lower quadrant, in the left lower jh7 quadrant. Onset: The symptoms/episode began/occurred yesterday. The symptoms do not radiate. Associated signs and symptoms: Pertinent positives: nausea, Pertinent negatives: constipation, diarrhea, dysuria, fever, shortness of breath, vomiting. Patient reports that she started her menstrual cycle yesterday but that bleeding stopped this morning. History of hypertension and C-sections x3. Denies dysuria or flank pain.. 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 - Social history:: Smoking status: unknown. ROS: 11:17 Constitutional: Negative for fever, chills, and weight loss, Eyes: Negative for injury, jh7 pain, redness, and discharge, Neck: Negative for injury, pain, and swelling, Cardiovascular: Negative for chest pain, palpitations, and edema, Respiratory: Negative for shortness of breath, cough, wheezing, and pleuritic chest pain, Back: Negative for injury and pain, MS/Extremity: Negative for injury and deformity, Skin: Negative for injury, rash, and discoloration, Neuro: Negative for headache, weakness, numbness, tingling, and seizure, 11:17 Abdomen/GI: Positive for abdominal pain, nausea, Negative for vomiting, diarrhea, constipation, rectal pain, rectal bleeding, 11:17 All other systems are negative, Exam: 11:17 Head/Face: Normocephalic, atraumatic. Neck: Trachea midline, no thyromegaly or masses jh7 palpated, and no cervical lymphadenopathy. Supple, full range of motion without nuchal rigidity, or vertebral point tenderness. No Meningismus. Cardiovascular: Regular rate and rhythm with a normal S1 and S2. No gallops, murmurs, or rubs. Normal PMI, no JVD. No pulse deficits. Respiratory: Lungs have equal breath sounds bilaterally, clear to auscultation and percussion. No rales, rhonchi or wheezes noted. No increased work of breathing, no retractions or nasal flaring. Back: No spinal tenderness. No costovertebral tenderness. Full range of motion. Skin: Warm, dry with normal turgor. Normal color with no rashes, no lesions, and no evidence of cellulitis. MS/ Extremity: Pulses equal, no cyanosis. Neurovascular intact. Full, normal range of motion. Neuro: Awake and alert, GCS 15, oriented to person, place, time, and situation. Motor strength 5/5 in all extremities. Sensory grossly intact. Normal gait. 11:17 Constitutional: The patient appears alert, awake, in obvious pain, 11:17 Abdomen/GI: Inspection: abdomen appears normal, Bowel sounds: normal, Palpation: soft, moderate abdominal tenderness, in the right lower quadrant and left lower quadrant, Vital Signs: 11:16 BP 145 / 94; Pulse 91; Resp 17; Temp 97.7; Pulse Ox 100% ; Weight 84.37 kg; Pain 10/10; jl7 14:12 BP 118 / 88; Pulse 65; Resp 16; Pulse Ox 100% on R/A; Pain 0/10; mb9 11:16 Pain Scale: Adult jl7 14:12 Pain Scale: Adult mb9 MDM: 11:13 Patient medically screened. [facility] 15:42 Differential diagnosis: appendicitis, Endometriosis, Menorrhagia, Ureterolithiasis, jh7 urinary tract infection, Ovarian cyst, uterine fibroids, ovarian torsion, tubo-ovarian abscess. Data reviewed: vital signs, nurses notes, lab test result(s), radiologic studies, CT scan, ultrasound. I considered the following discharge prescriptions or medication management in the emergency department Medications were administered in the Emergency Department. See MAR. Care significantly affected by the following chronic conditions: Hypertension. Counseling: I had a detailed discussion with the patient and/or guardian regarding the historical points, exam findings, and any diagnostic results supporting the discharge/admit diagnosis, to return to the emergency department if symptoms worsen or persist or if there are any questions or concerns that arise at home. Response to treatment: the patient's symptoms have resolved after treatment. Special discussion: Based on the history and exam findings, there is no indication for further emergent testing or inpatient evaluation. I discussed with the patient/guardian the need to see the OB Gyne specialist for further evaluation of the symptoms. 04/17 11:19 Order name: CBC with Diff; Complete Time: 11:45 [facility] 04/17 11:19 Order name: CMP; Complete Time: 12:07 [facility] 04/17 11:19 Order name: Lipase; Complete Time: 12:07 [facility] 04/17 11:19 Order name: Urinalysis w/ reflexes; Complete Time: 11:56 [facility] 04/17 11:55 Order name: Test, Urine; Complete Time: 12:07 [facility] 04/17 11:19 Order name: CT Abd/Pelvis - IV Contrast Only; Complete Time: 13:09 [facility] 04/17 13:10 Order name: US Transvaginal Study (Probe); Complete Time: 15:40 [facility] 04/17 14:10 Order name: Pelvis Complete; Complete Time: 15:40 EDMS 04/17 11:19 Order name: IV Saline Lock; Complete Time: 11:20 [facility] 04/17 11:19 Order name: Labs collected and sent; Complete Time: 11:21 [facility] Administered Medications: 11:28 Drug: NS 0.9% IV 1000 ml IV at 1 bolus Per protocol; 1000 mL bolus Route: IV; Rate: 1 jl7 bolus; Site: right antecubital; 11:28 Drug: Ondansetron IVP 4 mg IVP once; over 2 minutes Route: IVP; Site: right antecubital;jl7 11:29 Drug: morphine IVP or IV 4 mg IVP once over 4 mins Route: IVP; Infused Over: 4 mins; jl7 Site: right antecubital; Disposition: 16:00 Co-signature as Attending Physician, Froilan Encinas MD I reviewed the patient's care rt provided by the Advanced Practice Provider and agree with the diagnosis and treatment plan. Disposition Summary: 04/17/23 15:45 Discharge Ordered Notes: Location: Home [facility] Problem: new [facility] Symptoms: have improved jh Condition: Stable jh7 Diagnosis - Uterine fibroid 7 - Lower abdominal pain, unspecified [facility] Followup: [facility] - With: Private Physician - When: 2 - 3 days - Reason: Recheck today's complaints Discharge Instructions: - Discharge Summary Sheet [facility] - Abdominal Pain, Adult [facility] - Uterine Fibroids [facility] Forms: - Medication Reconciliation Form [facility] - Thank You Letter [facility] - Patient Portal Instructions [facility] - Leadership Thank You Letter [facility] Signatures: Dispatcher [employer] Hortencia Cox RN RN 7 Candice Doyle, LEAD ATG DEVELOPER LEAD ATG DEVELOPER [facility] Froilan Encinas MD MD rt
[2023-04-17 16:20] VITALS: TEMP 97.7; O2SAT 100
[2023-04-17 16:35] VITALS: BP 118/88
== END 2023-04-17 15:51 | disposition home or self-care (01) ==
LOC: ER 11:10
DX: D25.9 Leiomyoma of uterus, unspecified (principal)
CPT/HCPCS: 36415; 74177; 76830; 76856; 80053; 81001; 81025; 83690; 85025; J2405; Q9967

== ENCOUNTER 2025-02-11 16:35 | Emergency (ER) | payer OTHER, SELFPAY ==
[2025-02-11] MEDS ORDERED: ONDANSETRON 4 MG/2 ML VIAL ONE (16:46)
--- OUTSIDE RECORDS SUMMARY | 2025-02-11 16:46 | XMS REPORT | Continuity of Care Document ---
Author Name Unknown Address [address] [facility] [address] [place] [address] [facility] Address [address] [facility] [address] [place] [address] Care Team Providers Care Underwriting Specialist Name Role Phone SYSTEM, PCP NOT IN Primary Care Physician Julisa Craig Attending Clinician [phone] Debbie Ivey MD Attending Clinician [phone] DEBBIE IVEY Attending Clinician Unavailable Pgy3 Attending Clinician Unavailable Payers Payer Name Policy Type Policy Number Effective Date Expirati on Date Source [facility] [id number] 2023 00:00:00 Allergies, Adverse Reactions, Alerts Allergy Name Allergy Type Status Severity Reaction(s) Onset Date Inactive Date Treating Clinician Comments Source NO KNOWN ALLERGIE S Drug Class Active [facility] Social History Social Habit Start Date Stop Date Quantity Comments Source [facility] of tobacco use Cigarette Smoker [facility] Alcohol intake 2023-05-07 00:00:00 2023-05-07 00:00:00 Current drinker of alcohol (finding) [facility] History of Social function 2023-05-07 00:00:00 2023-05-07 00:00:[address] [facility] Alcohol Comment 2023-05-07 00:00:00 2023-05-07 00:00:[address] [facility] Cigarettes smoked current (pack per day) - Reported 2023-05-07 00:00:00 2023-05-07 00:00:[address] [facility] Tobacco use and exposure 2023-05-07 00:00:00 2023-05-07 00:00:00 Smokeless tobacco non-user [facility] Sex Assigned At 1975 00:00:00 1975 00:00:[address] [facility] Smoking Status Start Date Stop Date Source Smokes tobacco daily 2023-05-07 00:00:[address] [facility] Medications Ordered Medication Name Filled Medication Name Start Date Stop Date Current Medication? Ordering Clinician Indication Dosage Frequency Signature (SIG) Comments Components Source phentermine 37.5 mg capsule 12-26 00:00: 00 Yes 1mg Fortunato Hernández losartan 50 mg tablet 12-18 00:00: 00 Yes 1mg Fortunato Hernández chlorthalid one 50 mg tablet 12-18 00:00: 00 Yes 1mg Fortunato Hernández albuterol sulfate HFA 90 mcg/actuati on aerosol inhaler 2023-07 00:00: 00 Yes 12mcg/a ctuatio n Fortunato Hernández losartan 50 mg tablet 2023-07 00:00: 00 Yes 1mg Fortunato Hernández chlorthalid one 50 mg tablet 2023-07 00:00: 00 Yes 1mg Fortunato Hernández losartan 50 mg tablet 2023-07 00:00: 00 Yes 1mg Fortunato Hernández chlorthalid one 50 mg tablet 2023-07 00:00: 00 Yes 1mg Fortunato Hernández chlorthalid one 50 mg tablet 2023-07 00:00: 00 Yes 1mg Fortunato Hernández losartan 50 mg tablet 04-04 00:00: 00 Yes 1mg Fortunato Hernández losartan 50 mg tablet 01-01 00:00: 00 Yes 1mg Fortunato Hernández chlorthalid one 50 mg tablet 01-01 00:00: 00 Yes 1mg Fortunato Hernández fenofibrate 120 mg tablet 01-01 00:00: 00 Yes 1mg Fortunato Hernández levofloxaci n 500 mg tablet 12-26 00:00: 00 Yes 1mg Fortunato Hernández fluconazole 150 mg tablet - 00:00: 00 Yes 1mg Fortunato Hernández losartan 50 mg tablet - 00:00: 00 Yes 1mg Fortunato Hernández chlorthalid one 50 mg tablet 09-25 00:00: 00 Yes 1mg Fortunato Hernández Zetia 10 mg tablet 09-25 00:00: 00 Yes 1mg Fortunato Hernández norethindro ne (contracept malik) 0.35 mg tablet 09-25 00:00: 00 Yes 1mg Fortunato Hernández fenofibrate 120 mg tablet 09-25 00:00: 00 Yes 1mg Fortunato Hernández fenofibrate micronized 67 mg capsule 09-25 00:00: 00 Yes 1mg Fortunato Hernández norethindro ne 0.35 mg tablet 08-02 00:00: 00 Yes [id number] 1{tbl} Take 1 tablet by mouth in the morning. [facility] TAKE 1 TABLET TWICE DAILY UNTIL FINISHED. 2022-07 00:00: 00 11-20 00:00 :00 No 500 Fortunato Hernández TAKE 1 TABLET TODAY AND REPEAT IN 3 DAYS 2022-07 00:00: 00 11-20 00:00 :00 No 150 Fortunato Hernández TAKE 1 TABLET BY MOUTH ONCE DAILY 2022-07 00:00: 00 11-20 00:00 :00 No 50 Fortunato Hernández losartan 50 mg tablet 2022-07 08:42: 32 Yes 50mg Take 1 tablet by mouth in the morning. [facility] chlorthalid one 50 mg tablet 2022-07 08:42: 32 Yes 50mg Take 1 tablet by mouth in the morning. [facility] TAKE 1 TABLET BY MOUTH IN THE MORNING 2022-07 00:00: 00 Yes Fortunato Hernández norethindro ne 0.35 mg tablet 2022-07 00:00: 00 08-02 00:00 :00 No [id number] 1{tbl} Take 1 tablet by mouth in the morning for 90 days. [facility] TAKE 1 TABLET TWICE DAILY UNTIL FINISHED. 03-31 00:00: 00 11-20 00:00 :00 No 500 Fortunato Hernández TAKE ONE (1) TABLET(S) BY MOUTH ONCE A DAY. 8- 00:00: 00 11-20 00:00 :00 No 50 Fortunato F Edgar TAKE 1 TABLET BY MOUTH ONCE DAILY 8- 00:00: 00 11-20 00:00 :00 No 50 Fortunato F Edgar TAKE 1 TABLET DAILY. 8- 00:00: 00 11-20 00:00 :00 No 10 Fortunato F Edgar TAKE 1 TABLET BY MOUTH ONCE DAILY 6-05 00:00: 00 11-20 00:00 :00 No 50 Fortunato F Edgar TAKE ONE (1) TABLET(S) BY MOUTH ONCE A DAY. 5-24 00:00: 00 11-20 00:00 :00 No 50 Fortunato F Edgar TAKE ONE TABLET DAILY AT BEDTIME 5 00:00: 00 11-20 00:00 :00 No 120 Fortunato F Edgar TAKE 1 TABLET BY MOUTH ONCE DAILY 5- 00:00: 00 11-20 00:00 :00 No 50 Fortunato F Edgar TAKE 1 TABLET DAILY. 11-01 00:00: 00 11-20 00:00 :00 No 50 Fortunato F Edgar TAKE 1 TABLET DAILY. 4 00:00: 00 11-20 00:00 :00 No 145 Fortunato F Edgar TAKE 1 TABLET DAILY. 2- 00:00: 00 11-20 00:00 :00 No 145 Fortunato F Edgar TAKE 1 TABLET DAILY. 1-31 00:00: 00 11-20 00:00 :00 No 50 Fortunato F Edgar TAKE 1 TAB EVERY 72 HR FOR 7 DAYS 2021-07 2- 00:00: 00 11-20 00:00 :00 No Fortunato F Edgar Dose Unknown 2021-07 2- 00:00: 00 11-20 00:00 :00 No Fortunato F Edgar Dose Unknown 2021-07 2 00:00: 00 11-20 00:00 :00 No Fortunato F Edgar Dose Unknown 2021-07 00:00: 00 11-20 00:00 :00 No Fortunato Hernández Dose Unknown 2021-07 00:00: 00 11-20 00:00 :00 No Fortunato Hernández chlorthalid one 50 mg tablet 01-10 00:00: 00 Yes 1mg Fortunato Hernández losartan 25 mg tablet 01-10 00:00: 00 Yes 1mg Fortunato Hernández ferrous sulfate 325 mg (65 mg iron) tablet,jacoby yed release 01-10 00:00: 00 Yes 1(65 mg iron) Fortunato Hernández Dose Unknown 01-10 00:00: 00 Yes Fortunato Hernández Dose Unknown 01-10 00:00: 00 Yes Fortunato Hernández chlorthalid one 50 mg tablet 12-20 00:00: 00 Yes 1mg Fortunato Hernández losartan 25 mg tablet 12-20 00:00: 00 Yes 1mg Fortunato Hernández Dose Unknown 12-20 00:00: 00 Yes Fortunato Hernández chlorthalid one 25 mg tablet 12-07 00:00: 00 Yes 1mg Fortunato Hernández Bactrim DS 800 mg-160 mg tablet 12-07 00:00: 00 Yes 1mg Fortunato Hernández captopril 25 mg tablet 11-28 00:00: 00 Yes 1mg Fortunato Hernández amlodipine 10 mg tablet - 00:00: 00 Yes 1mg Fortunato Hernández Dose Unknown -23 00:00: 00 Yes 10 Fortunato Hernández Dose Unknown -18 00:00: 00 Yes Fortunato Hernández metronidazo le 500 mg tablet -15 00:00: 00 Yes 1mg Fortunato Hernández ferrous sulfate 325 mg (65 mg iron) tablet,jacoby yed release -15 00:00: 00 Yes 1(65 mg iron) Fortunato Hernández Dose Unknown -15 00:00: 00 Yes Fortunato Hernández Dose Unknown -14 00:00: 00 Yes Fortunato Hernández Dose Unknown - 00:00: 00 Yes Fortunato Hernández amlodipine 5 mg tablet - 00:00: 00 Yes 1mg Fortunato Hernández Dose Unknown - 00:00: 00 Yes Fortunato Hernández Dose Unknown 10-19 00:00: 00 Yes Fortunato Hernández metronidazo le 500 mg tablet - 00:00: 00 Yes 1mg Fortunato Hernández fluconazole 150 mg tablet 24 00:00: 00 Yes 1mg Fortunato Hernández Dose Unknown 09-29 00:00: 00 Yes Fortunato Hernández Dose Unknown 09-28 00:00: 00 Yes Fortunato Hernández Macrobid 100 mg capsule 09-27 00:00: 00 Yes 1mg Fortunato Hernández Vital Signs Vital Name Observation Time Observation Value Comments S ource Systolic blood pressure 2023-05-07 13:31:00 126 mm[Hg] [facility] Diastolic blood pressure 2023-05-07 13:31:00 92 mm[Hg] [facility] Heart rate 2023-05-07 13:31:00 72 /min [facility] Body temperature 2023-05-07 13:31:[address] [facility] Respiratory rate 2023-05-07 13:31:00 18 /min [facility] Body height 2023-05-07 13:31:00 157.5 cm [facility] Body weight 2023-05-07 13:31:00 83.008 kg [facility] BMI 2023-05-07 13:31:00 33.47 kg/m2 [facility] Oxygen saturation in Arterial blood by Pulse oximetry 2023-05-07 13:31:00 100 /min [facility] Systolic blood pressure 2023-05-07 13:31:00 126 mm[Hg] [facility] Diastolic blood pressure 2023-05-07 13:31:00 92 mm[Hg] [facility] Heart rate 2023-05-07 13:31:00 72 /min [facility] Body temperature 2023-05-07 13:31:[address] [facility] Respiratory rate 2023-05-07 13:31:00 18 /min [facility] Body height 2023-05-07 13:31:00 157.5 cm [facility] Body weight 2023-05-07 13:31:00 83.008 kg [facility] BMI 2023-05-07 13:31:00 33.47 kg/m2 [facility] Oxygen saturation in Arterial blood by Pulse oximetry 2023-05-07 13:31:00 100 /min [facility] BP Systolic 2025-01-15 08:23:00 115 mm[Hg] Step hen F Edgar BP Diastolic 2025-01-15 08:23:00 80 mm[Hg] Jonathan phen F Edgar Weight Measured 2025-01-15 08:23:00 202.40 pounds Fortunato F Edgar Height Measured 2025-01-15 08:23:00 62.00 inches Fortunato F Edgar Body Temperature 2025-01-15 08:23:00 98.60 degrees Fortunato F Edgar Heart Rate 2025-01-15 08:23:00 79.00 /min Leanna en F Edgar Respiratory Rate 2025-01-15 08:23:00 18.00 /min Fortunato F Edgar BP Systolic 2025-01-12 13:52:00 111 mm[Hg] Step hen F Edgar BP Diastolic 2025-01-12 13:52:00 75 mm[Hg] Jonathan phen F Edgar Weight Measured 2025-01-12 13:52:00 200.20 pounds Fortunato F Edgar Height Measured 2025-01-12 13:52:00 62.00 inches Fortunato F Edgar Body Temperature 2025-01-12 13:52:00 98.10 degrees Fortunato F Edgar Heart Rate 2025-01-12 13:52:00 78.00 /min Leanna en F Edgar Respiratory Rate 2025-01-12 13:52:00 18.00 /min Fortunato F Edgar BP Systolic 2024-12-26 13:31:00 115 mm[Hg] Step hen F Edgar BP Diastolic 2024-12-26 13:31:00 82 mm[Hg] Jonathan phen F Edgar Weight Measured 2024-12-26 13:31:00 202.00 pounds Fortunato F Edgar Height Measured 2024-12-26 13:31:00 62.00 inches Fortunato F Edgar Body Temperature 2024-12-26 13:31:00 97.50 degrees Fortunato F Edgar Heart Rate 2024-12-26 13:31:00 79.00 /min Leanna en F Edgar Respiratory Rate 2024-12-26 13:31:00 18.00 /min Fortunato F Edgar BP Systolic 2024-12-18 15:45:00 112 mm[Hg] Step hen F Edgar BP Diastolic 2024-12-18 15:45:00 74 mm[Hg] Jonathan phen F Edgar Weight Measured 2024-12-18 15:45:00 200.40 pounds Fortunato F Edgar Height Measured 2024-12-18 15:45:00 62.00 inches Fortunato F Edgar Body Temperature 2024-12-18 15:45:00 98.20 degrees Fortunato F Edgar Heart Rate 2024-12-18 15:45:00 78.00 /min Leanna en F Edgar Respiratory Rate 2024-12-18 15:45:00 18.00 /min Fortunato F Edgar BP Systolic 2024-07-03 13:10:00 117 mm[Hg] Step hen F Edgar BP Diastolic 2024-07-03 13:10:00 78 mm[Hg] Jonathan phen F Edgar Weight Measured 2024-07-03 13:10:00 193.20 pounds Fortunato F Edgar Height Measured 2024-07-03 13:10:00 62.00 inches Fortunato F Edgar Body Temperature 2024-07-03 13:10:00 98.30 degrees Fortunato F Edgar Heart Rate 2024-07-03 13:10:00 80.00 /min Leanna en F Edgar Respiratory Rate 2024-07-03 13:10:00 18.00 /min Fortunato F Edgar BP Systolic 2024-06-19 08:42:00 136 mm[Hg] Step hen F Edgar BP Diastolic 2024-06-19 08:42:00 88 mm[Hg] Jonathan phen F Edgar Weight Measured 2024-06-19 08:42:00 213.40 pounds Fortunato F Edgar Height Measured 2024-06-19 08:42:00 62.00 inches Fortunato F Edgar Body Temperature 2024-06-19 08:42:00 98.10 degrees Fortunato F Edgar Heart Rate 2024-06-19 08:42:00 67.00 /min Leanna en F Edgar Respiratory Rate 2024-06-19 08:42:00 19.00 /min Fortunato F Edgar BP Systolic 2023-12-27 17:42:00 120 mm[Hg] Step hen F Edgar BP Diastolic 2023-12-27 17:42:00 78 mm[Hg] Jonathan phen F Edgar Weight Measured 2023-12-27 17:42:00 204.50 pounds Fortunato F Edgar Height Measured 2023-12-27 17:42:00 62.00 inches Fortunato F Edgar Body Temperature 2023-12-27 17:42:00 98.20 degrees Fortunato F Edgar Heart Rate 2023-12-27 17:42:00 81.00 /min Leanna en F Edgar Respiratory Rate 2023-12-27 17:42:00 19.00 /min Fortunato F Edgar BP Systolic 2023-12-20 17:50:00 124 mm[Hg] Step hen F Edgar BP Diastolic 2023-12-20 17:50:00 80 mm[Hg] Jonathan phen F Edgar Weight Measured 2023-12-20 17:50:00 203.20 pounds Fortunato F Edgar Height Measured 2023-12-20 17:50:00 62.00 inches Fortunato F Edgar Body Temperature 2023-12-20 17:50:00 97.70 degrees Fortunato F Edgar Heart Rate 2023-12-20 17:50:00 90.00 /min Leanna en F Edgar Respiratory Rate 2023-12-20 17:50:00 16.00 /min Fortunato F Edgar BP Systolic 2023-10-22 15:00:00 105 mm[Hg] Step hen F Edgar BP Diastolic 2023-10-22 15:00:00 74 mm[Hg] Jonathan phen F Edgar Weight Measured 2023-10-22 15:00:00 196.80 pounds Fortunato F Edgar Height Measured 2023-10-22 15:00:00 62.00 inches Fortunato F Edgar Body Temperature 2023-10-22 15:00:00 97.50 degrees Fortunato F Edgar Heart Rate 2023-10-22 15:00:00 90.00 /min Leanna en F Edgar Respiratory Rate 2023-10-22 15:00:00 19.00 /min Fortunato F Edgar BP Systolic 2023-09-26 16:52:00 152 mm[Hg] Step hen F Edgar BP Diastolic 2023-09-26 16:52:00 102 mm[Hg] Jonathan phen F Edgar Weight Measured 2023-09-26 16:52:00 201.20 pounds Fortunato F Edgar Height Measured 2023-09-26 16:52:00 62.00 inches Fortunato F Edgar Body Temperature 2023-09-26 16:52:00 98.10 degrees Fortunato F Edgar Heart Rate 2023-09-26 16:52:00 67.00 /min Leanna en F Edgar Respiratory Rate 2023-09-26 16:52:00 19.00 /min Fortunato F Edgar BP Systolic 2023-09-26 16:44:00 152 mm[Hg] Step hen F Edgar BP Diastolic 2023-09-26 16:44:00 102 mm[Hg] Jonathan phen F Edgar Weight Measured 2023-09-26 16:44:00 201.20 pounds Fortunato F Edgar Height Measured 2023-09-26 16:44:00 62.00 inches Fortunato F Edgar Body Temperature 2023-09-26 16:44:00 98.10 degrees Forutnato F Edgar Heart Rate 2023-09-26 16:44:00 67.00 /min Leanna en F Edgar Respiratory Rate 2023-09-26 16:44:00 19.00 /min Fortunato F Edgar BP Systolic 2023-06-05 15:46:00 116 mm[Hg] Step hen F Edgar BP Diastolic 2023-06-05 15:46:00 82 mm[Hg] Jonathan phen F Edgar Weight Measured 2023-06-05 15:46:00 190.20 pounds Fortunato F Edgar Height Measured 2023-06-05 15:46:00 62.00 inches Fortunato F Edgar Body Temperature 2023-06-05 15:46:00 98.30 degrees Fortunato F Edgar Heart Rate 2023-06-05 15:46:00 88.00 /min Leanna en F Edgar Respiratory Rate 2023-06-05 15:46:00 Fortunato F Edgar BP Systolic 2023-05-30 08:11:00 126 mm[Hg] Step hen F Edgar BP Diastolic 2023-05-30 08:11:00 83 mm[Hg] Jonathan phen F Edgar Weight Measured 2023-05-30 08:11:00 184.60 pounds Fortunato F Edgar Height Measured 2023-05-30 08:11:00 62.00 inches Fortunato F Edgar Body Temperature 2023-05-30 08:11:00 98.00 degrees Fortunato F Edgar Heart Rate 2023-05-30 08:11:00 60.00 /min Leanna en F Edgar Respiratory Rate 2023-05-30 08:11:00 Fortunato F Edgar BP Systolic 2023-05-29 17:18:00 124 mm[Hg] Step hen F Edgar BP Diastolic 2023-05-29 17:18:00 85 mm[Hg] Jonathan phen F Edgar Weight Measured 2023-05-29 17:18:00 186.60 pounds Fortunato F Edgar Height Measured 2023-05-29 17:18:00 62.00 inches Fortunato F Edgar Body Temperature 2023-05-29 17:18:00 98.40 degrees Fortunato F Edgar Heart Rate 2023-05-29 17:18:00 86.00 /min Leanna en F Edgar Respiratory Rate 2023-05-29 17:18:00 Fortunato F Edgar BP Systolic 2023-04-18 08:34:00 124 mm[Hg] Step hen F Edgar BP Diastolic 2023-04-18 08:34:00 85 mm[Hg] Jonathan phen F Edgar Weight Measured 2023-04-18 08:34:00 176.80 pounds Fortunato F Edgar Height Measured 2023-04-18 08:34:00 62.00 inches Fortunato F Edgar Body Temperature 2023-04-18 08:34:00 97.10 degrees Fortunato F Edgar Heart Rate 2023-04-18 08:34:00 75.00 /min Leanna en F Edgar Respiratory Rate 2023-04-18 08:34:00 Fortunato F Edgar BP Systolic 2023-04-16 10:11:00 117 mm[Hg] Step hen F Edgar BP Diastolic 2023-04-16 10:11:00 59 mm[Hg] Jonathan phen F Edgar Weight Measured 2023-04-16 10:11:00 186.20 pounds Fortunato Hernández Height Measured 2023-04-16 10:11:00 62.00 inches Fortunato Hernández Body Temperature 2023-04-16 10:11:00 98.20 degrees Fortunato Hernández Heart Rate 2023-04-16 10:11:00 86.00 /min Leanna en F Edgar Respiratory Rate 2023-04-16 10:11:00 Fortunatogail Hernández BP Systolic 2023-04-16 10:01:00 117 mm[Hg] Step hen Ehsan Hernández BP Diastolic 2023-04-16 10:01:00 59 mm[Hg] Jonathan Hernández Weight Measured 2023-04-16 10:01:00 186.20 pounds Fortunato Hernández Height Measured 2023-04-16 10:01:00 62.00 inches Fortunato Hernández Body Temperature 2023-04-16 10:01:00 98.20 degrees Fortunato Hernández Heart Rate 2023-04-16 10:01:00 86.00 /min Leanna en Ehsan Hernández Respiratory Rate 2023-04-16 10:01:00 Fortunato Hernández Encounters Start Date/Time End Date/Time Encounter Type Admission Type Attending [facility] Care Department Encounter ID Source 2025-01-15 08:14:45 2025-01-15 08:14:45 Outpatient SFA [facility] [id number] Fortunato Hernández 2025-01-15 00:00:00 2025-01-15 00:00:00 Outpatient Visit [facility] [id number] Fortunato Hernández 2025-01-12 13:46:00 2025-01-12 13:46:00 Outpatient SFA [facility] [id number] Fortunato Hernández 2025-01-12 00:00:00 2025-01-12 00:00:00 Outpatient Visit [facility] [id number] Fortunato Hernández 2024-12-26 13:27:25 2024-12-26 13:27:25 Outpatient SFA [facility] [id number] Fortunato Hernández 2024-12-26 00:00:00 2024-12-26 00:00:00 Outpatient Visit [facility] [id number] Fortunato Hernández 2024-12-19 08:47:50 2024-12-19 08:47:50 Outpatient SFA [facility] [id number] Fortunato Hernández 2024-12-18 15:43:10 2024-12-18 15:43:10 Outpatient SFA [facility] [id number] Fortunato Hernández 2024-12-18 00:00:00 2024-12-18 00:00:00 Outpatient Visit [facility] [id number] Fortunato Hernández 2024-10-10 16:05:45 2024-10-10 16:05:45 Outpatient SFA SFA [id number] Fortunato Hernández 2024-07-03 13:06:18 2024-07-03 13:06:18 Outpatient SFA SFA [id number] Fortunato Hernández 2024-06-19 08:38:29 2024-06-19 08:38:29 Outpatient SFA SFA [id number] Fortunato Hernández 2024-06-19 00:00:00 2024-06-19 00:00:00 Outpatient Visit [facility] [id number] Fortunato Hernández 2023-12-27 17:41:43 2023-12-27 17:41:43 Outpatient SFA SFA [id number] Fortunato Hernández 2023-12-27 00:00:00 2023-12-27 00:00:00 Outpatient Visit SFA [id number] Fortunato Hernández 2023-12-20 17:43:25 2023-12-20 17:43:25 Outpatient SFA SFA [id number] Fortunato Hernández 2023-12-20 00:00:00 2023-12-20 00:00:00 Outpatient Visit SFA [id number] Fortunato Hernández 2023-10-23 14:15:10 2023-10-23 14:15:10 Outpatient SFA SFA [id number] Fortunato Hernández 2023-10-22 14:47:24 2023-10-22 14:47:24 Outpatient SFA SFA [id number] Fortunato Hernández 2023-09-27 08:10:24 2023-09-27 08:10:24 Outpatient SFA SFA [id number] Fortunato Hernández 2023-09-26 16:43:35 2023-09-26 16:43:35 Outpatient SFA SFA [id number] Fortunato Hernández 2023-08-23 15:00:00 2023-08-23 15:00:00 Outpatient R [facility] [id number] [facility] 2023-08-13 00:00:00 2023-08-13 00:00:[id number] [facility] 2023-08-07 16:22:15 2023-08-07 16:22:15 Outpatient SFA SFA [id number] Fortunato Hernández 2023-08-02 00:00:00 2023-08-02 00:00:00 Telephone Debbie Ivey [facility] [id number]..[id number] [facility] 2023-06-05 15:35:44 2023-06-05 15:35:44 Outpatient SFA SFA [id number] Fortunato Hernández 2023-05-29 17:13:35 2023-05-29 17:13:35 Outpatient SFA SFA [id number] Fortunato Hernández 2023-05-07 09:00:00 2023-05-07 09:47:18 Outpatient R DEBBIE IVEY [facility] [id number] [facility] 2023-05-07 09:00:00 2023-05-07 09:47:18 Office Visit Pgy3 Debbie Ivey Amarjit [facility] [id number] [id number] [facility] 2023-04-18 08:23:12 2023-04-18 08:23:12 Outpatient SFA SFA [id number] Fortunato Hernández 2023-04-16 09:50:46 2023-04-16 09:50:46 Outpatient SFA SFA [id number] Fortunato Hernández 2023-04-03 10:10:27 2023-04-03 10:10:27 Outpatient SFA SFA [id number] Fortunato Hernández 2023-04-02 13:15:21 2023-04-02 13:15:21 Outpatient SFA SFA [id number] Fortunato Hernández 2023-03-31 13:36:53 2023-03-31 13:36:53 Outpatient SFA SFA [id number] Fortunato Hernández 2023-02-16 09:39:58 2023-02-16 09:39:58 Outpatient SFA SFA [id number] Fortunato Hernández 2023-01-13 09:35:46 2023-01-13 09:35:46 Outpatient SFA SFA [id number] Fortunato Hernández 2022-11-16 10:58:30 2022-11-16 10:58:30 Outpatient SFA SFA [id number] Fortunato Hernández 2022-08-08 15:32:54 2022-08-08 15:32:54 Outpatient SFA SFA [id number] Fortunato Hernández 2022-07-25 13:27:49 2022-07-25 13:27:49 Outpatient SFA SFA [id number] Fortunato Hernández 2022-06-20 16:28:05 2022-06-20 16:28:05 Outpatient SFA SFA Fortunato Hernández 2022-06-16 16:46:34 2022-06-16 16:46:34 Outpatient [facility] [id number] Fortunato Hernández 2022-05-02 15:35:31 2022-05-02 15:35:31 Outpatient [facility] [id number] Fortunato Hernández Results Test Description Test Time Test Comments Results Result Co mments Source Fortunato HernándezHEMOGLOBIN [id number] 00:00:00* Test Item Value Reference Range Interpretation Comme nts HEMOGLOBIN A1c (test code = 4548-4) 5.5 % Fortunato HernándezLIPID [id number] 00:00:00* Test Item Value Reference Range Interpretation Comme nts CHOLESTEROL, TOTAL (test cod e = 2093-3) 155 mg/dL HDL CHOLESTEROL (test code = 2085-9) 59 mg/dL TRIGLYCERIDES (test code = 2571-8) 185 mg/dL LDL-CHOLESTEROL (test code = 26924-1) 70 mg/dL(calc) CHOL/HDLC RATIO (test code = 9830-1) 2.6 (calc) NON HDL CHOLESTEROL (test co de = 95504-7) 96 mg/dL(calc) Fortunato HernándezCOMPREHENSIVE METABOLIC [id number] 00:00:00* Test Item Value Reference Range Interpretation Comme nts GLUCOSE (test code = 2345-7) 100 mg/dL UREA NITROGEN (BUN) (test code = 3094-0) 20 mg/dL CREATININE (test code = 2160-0) 0.85 mg/dL EGFR (test code = 27815-7) 85 mL/min/1.73m2 BUN/CREATININE RATIO (test code = 3097-3) SEE NOTE: (calc) SODIUM (test code = 2951-2) 140 mmol/L POTASSIUM (test code = 2823-3) 3.9 mmol/L CHLORIDE (test code = 2075-0) 101 mmol/L CARBON DIOXIDE (test code = 2027-9) 31 mmol/L CALCIUM (test code = 10902-4) 8.9 mg/dL PROTEIN, TOTAL (test code = 2885-2) 6.7 g/dL ALBUMIN (test code = 1751-7) 4.2 g/dL GLOBULIN (test code = 13973-1) 2.5 g/dL(calc) ALBUMIN/GLOBULIN RATIO (test code = 1759-0) 1.7 (calc) BILIRUBIN, TOTAL (test code = 1975-2) 0.3 mg/dL ALKALINE PHOSPHATASE (test code = 6768-6) 55 U/L AST (test code = 1920-8) 15 U/L ALT (test code = 1742-6) 15 U/L Fortunato HernándezHEMOGLOBIN [id number] 00:00:00* Test Item Value Reference Range Interpretation Comme nts HEMOGLOBIN A1c (test code = 4548-4) 5.5 % Fortunato HernándezLIPID [id number] 00:00:00* Test Item Value Reference Range Interpretation Comme nts CHOLESTEROL, TOTAL (test cod e = 2093-3) 155 mg/dL HDL CHOLESTEROL (test code = 2085-9) 59 mg/dL TRIGLYCERIDES (test code = 2571-8) 185 mg/dL LDL-CHOLESTEROL (test code = 71478-5) 70 mg/dL(calc) CHOL/HDLC RATIO (test code = 9830-1) 2.6 (calc) NON HDL CHOLESTEROL (test co de = 13167-0) 96 mg/dL(calc) Fortunato HernándezCOMPREHENSIVE METABOLIC [id number] 00:00:00* Test Item Value Reference Range Interpretation Comme nts GLUCOSE (test code = 2345-7) 100 mg/dL UREA NITROGEN (BUN) (test code = 3094-0) 20 mg/dL CREATININE (test code = 2160-0) 0.85 mg/dL EGFR (test code = 56142-3) 85 mL/min/1.73m2 BUN/CREATININE RATIO (test code = 3097-3) SEE NOTE: (calc) SODIUM (test code = 2951-2) 140 mmol/L POTASSIUM (test code = 2823-3) 3.9 mmol/L CHLORIDE (test code = 2075-0) 101 mmol/L CARBON DIOXIDE (test code = 2027-9) 31 mmol/L CALCIUM (test code = 18207-2) 8.9 mg/dL PROTEIN, TOTAL (test code = 2885-2) 6.7 g/dL ALBUMIN (test code = 1751-7) 4.2 g/dL GLOBULIN (test code = 22336-8) 2.5 g/dL(calc) ALBUMIN/GLOBULIN RATIO (test code = 1759-0) 1.7 (calc) BILIRUBIN, TOTAL (test code = 1975-2) 0.3 mg/dL ALKALINE PHOSPHATASE (test code = 6768-6) 55 U/L AST (test code = 1920-8) 15 U/L ALT (test code = 1742-6) 15 U/L Fortunato HernándezHEMOGLOBIN [id number] 00:00:00* Test Item Value Reference Range Interpretation Comme nts HEMOGLOBIN A1c (test code = 4548-4) 5.5 % Fortunato HernándezLIPID [id number] 00:00:00* Test Item Value Reference Range Interpretation Comme nts CHOLESTEROL, TOTAL (test cod e = 2093-3) 155 mg/dL HDL CHOLESTEROL (test code = 2085-9) 59 mg/dL TRIGLYCERIDES (test code = 2571-8) 185 mg/dL LDL-CHOLESTEROL (test code = 35984-2) 70 mg/dL(calc) CHOL/HDLC RATIO (test code = 9830-1) 2.6 (calc) NON HDL CHOLESTEROL (test co de = 27061-2) 96 mg/dL(calc) Fortunato HernándezFSH + LH [id number] 04:22:07* Test Item Value Reference Range Interpretation Comme nts FOLLICLE STIM HORMONE (test code = 2700) 6.6 IU/L SEE BELOW EXPEC LILLIE VALUES FOR FSH FOR FEMALES >17 YEARS FOLLICULAR 3.5-12.5 IU/L MID-CYCLE PEAK 4.7-21.5 IU/L LUTEAL PHASE 1.7-7.7 IU/L POSTMENOPAUSAL 25.8-134.8 IU/L LUTEINIZING HORMONE (test code = 2776) 11.4 IU/L SEE BELOW EXPEC LILLIE VALUES FOR LH FOR FEMALES >17 YEARS MALES FEMALES >=18 YEARS 1.8-8.6 IU/L FOLLICULAR 2.4-12.6 IU/L MID-CYCLE PEAK 14.0-95.6 IU/L LUTEAL PHASE 1.0-11.4 IU/L POSTMENOPAUSAL 7.7-58.5 IU/L [id number] 04:22:07* Test Item Value Reference Range Interpretation Comme nts ESTRADIOL (test code = 2505) 128.0 PG/ML SEE BELOW EXPECTED VALUES FOR ESTRADIOL FOR FEMALES >=18 YEARS FOLLICULAR . . . . . . . . . . . . . PG/ML 12.4-233.0 OVULATION. . . . . . . . . . . . . . PG/ML 41.0-398.0 LUTEAL PHASE . . . . . . . . . . . . PG/ML 22.3-341.0 POSTMENOPAUSAL SUPPLEMENTED/NON-SUPP . PG/ML <138.0/<20.0 NOTE: TO DETERMINE NORMAL VS. SUBNORMAL ESTRADIOL IN POSTMENOPAUSAL FEMALES, CONSIDER ULTRASENSITIVE ESTRADIOL ([facility] ORDER CODE 5678). METHODOLOGY IS ANA NIKI ELECTROCHEMILUMINESCENT IMMUNOASSAY WITH A LIMIT OF DETECTION OF 17 PG/ML. TSH, THIRD [id number] 04:22:07* Test Item Value Reference Range Interpretation Comme [facility] TSH, THIRD GENERATION (test code = 2821) 2.010 UIU/ML 0.400-4.100 UNLESS OTHERWISE INDICATED, ALL TESTING PERFORMED AT [facility] [address] [place] [address] COTTON DISPATCHER: PEBBLES MORALES M.D. CLIA NUMBER [id number] [facility] [place]. [id number] CBC W/AUTO DIFF WITH [id number] 04:08:08* Test Item Value Reference Range Interpretation Comme [facility] WBC (test code = 1001) 5.6 K/UL 3.5-11.0 RBC (test code = 1002) 4.06 M/UL 3.80-5.40 HEMOGLOBIN (test code = 1003) 12.0 G/DL 11.5-15.5 HEMATOCRIT (test code = 1004) 35.7 % 34.0-45.0 MCV (test code = 1005) 87.9 fL 80.0-99.0 MCH (test code = 1006) 29.6 PG 25.0-33.0 MCHC (test code = 1007) 33.6 G/DL 31.0-36.0 RDW (test code = 1038) 13.1 % 11.5-15.0 NEUTROPHILS (test code = 1008) 62.0 % LYMPHOCYTES (test code = 1010) 26.1 % MONOCYTES (test code = 1011) 9.9 % EOSINOPHILS (test code = 1012) 0.7 % BASOPHILS (test code = 1013) 0.9 % IMMATURE GRANULOCYTES (test code = 1036) 0.4 % NUCLEATED RBCS (test code = 1065) 0.0 /100 WBC'S See_Comment [Automated messa ge] The system which generated this result transmitted reference range: 0.0. The reference range was not used to interpret this result as normal/abnormal. PLATELET COUNT (test code = 1015) 265 K/UL 130-400 ABSOLUTE NEUTROPHILS (test code = 1066) 3.45 K/UL 1.50-7.50 ABSOLUTE LYMPHOCYTES (test code = 1067) 1.45 K/UL 1.00-4.00 ABSOLUTE MONOCYTES (test code = 1068) 0.55 K/UL 0.20-1.00 ABSOLUTE EOSINOPHILS (test code = 1040) 0.04 K/UL 0.00-0.50 ABSOLUTE BASOPHILS (test code = 1069) 0.05 K/UL 0.00-0.20 ABS IMMATURE GRANULOCYTES (test code = 1020) 0.02 K/UL 0.00-0.10 ABS NUCLEATED RBCS (test code = 28578) 0.00 K/UL 0.00-0.11 CBC W/AUTO [id number] 00:00:00* Test Item Value Reference Range Interpretation Comme nts WBC (test code = 1001) 5.6 K/UL RBC (test code = 1002) 4.06 M/UL HEMOGLOBIN (test code = 1003) 12.0 G/DL HEMATOCRIT (test code = 1004) 35.7 % MCV (test code = 1005) 87.9 fL MCH (test code = 1006) 29.6 PG MCHC (test code = 1007) 33.6 G/DL RDW (test code = 1038) 13.1 % NEUTROPHILS (test code = 1008) 62.0 % LYMPHOCYTES (test code = 1010) 26.1 % MONOCYTES (test code = 1011) 9.9 % EOSINOPHILS (test code = 1012) 0.7 % BASOPHILS (test code = 1013) 0.9 % IMMATURE GRANULOCYTES (test code = 1036) 0.4 % NUCLEATED RBCS (test code = 1065) 0.0 /100WBC'S PLATELET COUNT (test code = 1015) 265 K/UL ABSOLUTE NEUTROPHILS (test c ode = 1066) 3.45 K/UL ABSOLUTE LYMPHOCYTES (test c ode = 1067) 1.45 K/UL ABSOLUTE MONOCYTES (test cod e = 1068) 0.55 K/UL ABSOLUTE EOSINOPHILS (test c ode = 1040) 0.04 K/UL ABSOLUTE BASOPHILS (test cod e = 1069) 0.05 K/UL ABS IMMATURE GRANULOCYTES (t est code = 1020) 0.02 K/UL ABS NUCLEATED RBCS (test cod e = 99144) 0.00 K/UL Fortunato HernándezFSH + LH [id number] 00:00:00* Test Item Value Reference Range Interpretation Comme nts FOLLICLE STIM HORMONE (test code = 4900) 6.6 IU/L LUTEINIZING HORMONE (test co de = 4766) 11.4 IU/L Fortunato [id number] 00:00:00* Test Item Value Reference Range Interpretation Comme nts ESTRADIOL (test code = 1075) 128.0 PG/ML Fortunato HernándezTSH, THIRD [id number] 00:00:00* Test Item Value Reference Range Interpretation Comme nts TSH, THIRD GENERATION (test code = 2821) 2.010 UIU/ML Fortunato HernándezCBC W/AUTO [id number] 00:00:00* Test Item Value Reference Range Interpretation Comme nts WBC (test code = 1001) 5.6 K/UL RBC (test code = 1002) 4.06 M/UL HEMOGLOBIN (test code = 1003) 12.0 G/DL HEMATOCRIT (test code = 1004) 35.7 % MCV (test code = 1005) 87.9 fL MCH (test code = 1006) 29.6 PG MCHC (test code = 1007) 33.6 G/DL RDW (test code = 1038) 13.1 % NEUTROPHILS (test code = 1008) 62.0 % LYMPHOCYTES (test code = 1010) 26.1 % MONOCYTES (test code = 1011) 9.9 % EOSINOPHILS (test code = 1012) 0.7 % BASOPHILS (test code = 1013) 0.9 % IMMATURE GRANULOCYTES (test code = 1036) 0.4 % NUCLEATED RBCS (test code = 1065) 0.0 /100WBC'S PLATELET COUNT (test code = 1015) 265 K/UL ABSOLUTE NEUTROPHILS (test c ode = 1066) 3.45 K/UL ABSOLUTE LYMPHOCYTES (test c ode = 1067) 1.45 K/UL ABSOLUTE MONOCYTES (test cod e = 1068) 0.55 K/UL ABSOLUTE EOSINOPHILS (test c ode = 1040) 0.04 K/UL ABSOLUTE BASOPHILS (test cod e = 1069) 0.05 K/UL ABS IMMATURE GRANULOCYTES (t est code = 1020) 0.02 K/UL ABS NUCLEATED RBCS (test cod e = 48281) 0.00 K/UL Fortunato HernándezFSH + LH [id number] 00:00:00* Test Item Value Reference Range Interpretation Comme nts FOLLICLE STIM HORMONE (test code = 3430) 6.6 IU/L LUTEINIZING HORMONE (test co de = 8646) 11.4 IU/L Fortunato [id number] 00:00:00* Test Item Value Reference Range Interpretation Comme nts ESTRADIOL (test code = 3525) 128.0 PG/ML Fortunato HernándezTSH, THIRD [id number] 00:00:00* Test Item Value Reference Range Interpretation Comme nts TSH, THIRD GENERATION (test code = 2821) 2.010 UIU/ML Fortuntao HernándezCBC W/AUTO [id number] 00:00:00* Test Item Value Reference Range Interpretation Comme nts WBC (test code = 1001) 5.6 K/UL RBC (test code = 1002) 4.06 M/UL HEMOGLOBIN (test code = 1003) 12.0 G/DL HEMATOCRIT (test code = 1004) 35.7 % MCV (test code = 1005) 87.9 fL MCH (test code = 1006) 29.6 PG MCHC (test code = 1007) 33.6 G/DL RDW (test code = 1038) 13.1 % NEUTROPHILS (test code = 1008) 62.0 % LYMPHOCYTES (test code = 1010) 26.1 % MONOCYTES (test code = 1011) 9.9 % EOSINOPHILS (test code = 1012) 0.7 % BASOPHILS (test code = 1013) 0.9 % IMMATURE GRANULOCYTES (test code = 1036) 0.4 % NUCLEATED RBCS (test code = 1065) 0.0 /100WBC'S PLATELET COUNT (test code = 1015) 265 K/UL ABSOLUTE NEUTROPHILS (test c ode = 1066) 3.45 K/UL ABSOLUTE LYMPHOCYTES (test c ode = 1067) 1.45 K/UL ABSOLUTE MONOCYTES (test cod e = 1068) 0.55 K/UL ABSOLUTE EOSINOPHILS (test c ode = 1040) 0.04 K/UL ABSOLUTE BASOPHILS (test cod e = 1069) 0.05 K/UL ABS IMMATURE GRANULOCYTES (t est code = 1020) 0.02 K/UL ABS NUCLEATED RBCS (test cod e = 16595) 0.00 K/UL Fortunato HernándezFSH + LH [id number] 00:00:00* Test Item Value Reference Range Interpretation Comme nts FOLLICLE STIM HORMONE (test code = 2700) 6.6 IU/L LUTEINIZING HORMONE (test co de = 2776) 11.4 IU/L Fortunato [id number] 00:00:00* Test Item Value Reference Range Interpretation Comme nts ESTRADIOL (test code = 5835) 128.0 PG/ML Fortunato HernándezTSH, THIRD [id number] 00:00:00* Test Item Value Reference Range Interpretation Comme nts TSH, THIRD GENERATION (test code = 2821) 2.010 UIU/ML Fortunato HernándezCBC W/AUTO [id number] 00:00:00* Test Item Value Reference Range Interpretation Comme nts WBC (test code = 1001) 5.6 K/UL RBC (test code = 1002) 4.06 M/UL HEMOGLOBIN (test code = 1003) 12.0 G/DL HEMATOCRIT (test code = 1004) 35.7 % MCV (test code = 1005) 87.9 fL MCH (test code = 1006) 29.6 PG MCHC (test code = 1007) 33.6 G/DL RDW (test code = 1038) 13.1 % NEUTROPHILS (test code = 1008) 62.0 % LYMPHOCYTES (test code = 1010) 26.1 % MONOCYTES (test code = 1011) 9.9 % EOSINOPHILS (test code = 1012) 0.7 % BASOPHILS (test code = 1013) 0.9 % IMMATURE GRANULOCYTES (test code = 1036) 0.4 % NUCLEATED RBCS (test code = 1065) 0.0 /100WBC'S PLATELET COUNT (test code = 1015) 265 K/UL ABSOLUTE NEUTROPHILS (test c ode = 1066) 3.45 K/UL ABSOLUTE LYMPHOCYTES (test c ode = 1067) 1.45 K/UL ABSOLUTE MONOCYTES (test cod e = 1068) 0.55 K/UL ABSOLUTE EOSINOPHILS (test c ode = 1040) 0.04 K/UL ABSOLUTE BASOPHILS (test cod e = 1069) 0.05 K/UL ABS IMMATURE GRANULOCYTES (t est code = 1020) 0.02 K/UL ABS NUCLEATED RBCS (test cod e = 13264) 0.00 K/UL Fortunato HernándezFSH + LH [id number] 00:00:00* Test Item Value Reference Range Interpretation Comme nts FOLLICLE STIM HORMONE (test code = 2700) 6.6 IU/L LUTEINIZING HORMONE (test co de = 2776) 11.4 IU/L Fortunato [id number] 00:00:00* Test Item Value Reference Range Interpretation Comme nts ESTRADIOL (test code = 2505) 128.0 PG/ML Fortunato HernándezTSH, THIRD [id number] 00:00:00* Test Item Value Reference Range Interpretation Comme nts TSH, THIRD GENERATION (test code = 2821) 2.010 UIU/ML Fortunato HernándezCBC W/AUTO [id number] 00:00:00* Test Item Value Reference Range Interpretation Comme nts WBC (test code = 1001) 5.6 K/UL RBC (test code = 1002) 4.06 M/UL HEMOGLOBIN (test code = 1003) 12.0 G/DL HEMATOCRIT (test code = 1004) 35.7 % MCV (test code = 1005) 87.9 fL MCH (test code = 1006) 29.6 PG MCHC (test code = 1007) 33.6 G/DL RDW (test code = 1038) 13.1 % NEUTROPHILS (test code = 1008) 62.0 % LYMPHOCYTES (test code = 1010) 26.1 % MONOCYTES (test code = 1011) 9.9 % EOSINOPHILS (test code = 1012) 0.7 % BASOPHILS (test code = 1013) 0.9 % IMMATURE GRANULOCYTES (test code = 1036) 0.4 % NUCLEATED RBCS (test code = 1065) 0.0 /100WBC'S PLATELET COUNT (test code = 1015) 265 K/UL ABSOLUTE NEUTROPHILS (test c ode = 1066) 3.45 K/UL ABSOLUTE LYMPHOCYTES (test c ode = 1067) 1.45 K/UL ABSOLUTE MONOCYTES (test cod e = 1068) 0.55 K/UL ABSOLUTE EOSINOPHILS (test c ode = 1040) 0.04 K/UL ABSOLUTE BASOPHILS (test cod e = 1069) 0.05 K/UL ABS IMMATURE GRANULOCYTES (t est code = 1020) 0.02 K/UL ABS NUCLEATED RBCS (test cod e = 94217) 0.00 K/UL Fortunato HernándezFSH + LH [id number] 00:00:00* Test Item Value Reference Range Interpretation Comme nts FOLLICLE STIM HORMONE (test code = 2700) 6.6 IU/L LUTEINIZING HORMONE (test co de = 2776) 11.4 IU/L Fortunato [id number] 00:00:00* Test Item Value Reference Range Interpretation Comme nts ESTRADIOL (test code = 2505) 128.0 PG/ML Fortunato HernándezTSH, THIRD [id number] 00:00:00* Test Item Value Reference Range Interpretation Comme nts TSH, THIRD GENERATION (test code = 2821) 2.010 UIU/ML Fortunato HernándezCBC W/AUTO [id number] 00:00:00* Test Item Value Reference Range Interpretation Comme nts WBC (test code = 1001) 5.6 K/UL RBC (test code = 1002) 4.06 M/UL HEMOGLOBIN (test code = 1003) 12.0 G/DL HEMATOCRIT (test code = 1004) 35.7 % MCV (test code = 1005) 87.9 fL MCH (test code = 1006) 29.6 PG MCHC (test code = 1007) 33.6 G/DL RDW (test code = 1038) 13.1 % NEUTROPHILS (test code = 1008) 62.0 % LYMPHOCYTES (test code = 1010) 26.1 % MONOCYTES (test code = 1011) 9.9 % EOSINOPHILS (test code = 1012) 0.7 % BASOPHILS (test code = 1013) 0.9 % IMMATURE GRANULOCYTES (test code = 1036) 0.4 % NUCLEATED RBCS (test code = 1065) 0.0 /100WBC'S PLATELET COUNT (test code = 1015) 265 K/UL ABSOLUTE NEUTROPHILS (test c ode = 1066) 3.45 K/UL ABSOLUTE LYMPHOCYTES (test c ode = 1067) 1.45 K/UL ABSOLUTE MONOCYTES (test cod e = 1068) 0.55 K/UL ABSOLUTE EOSINOPHILS (test c ode = 1040) 0.04 K/UL ABSOLUTE BASOPHILS (test cod e = 1069) 0.05 K/UL ABS IMMATURE GRANULOCYTES (t est code = 1020) 0.02 K/UL ABS NUCLEATED RBCS (test cod e = 37966) 0.00 K/UL Fortunato HernándezFSH + LH [id number] 00:00:00* Test Item Value Reference Range Interpretation Comme nts FOLLICLE STIM HORMONE (test code = 2700) 6.6 IU/L LUTEINIZING HORMONE (test co de = 2776) 11.4 IU/L Fortunato [id number] 00:00:00* Test Item Value Reference Range Interpretation Comme nts ESTRADIOL (test code = 7115) 128.0 PG/ML Fortunato HernándezTSH, THIRD [id number] 00:00:00* Test Item Value Reference Range Interpretation Comme nts TSH, THIRD GENERATION (test code = 2821) 2.010 UIU/ML Fortunato HernándezCBC W/AUTO [id number] 00:00:00* Test Item Value Reference Range Interpretation Comme nts WBC (test code = 1001) 5.6 K/UL RBC (test code = 1002) 4.06 M/UL HEMOGLOBIN (test code = 1003) 12.0 G/DL HEMATOCRIT (test code = 1004) 35.7 % MCV (test code = 1005) 87.9 fL MCH (test code = 1006) 29.6 PG MCHC (test code = 1007) 33.6 G/DL RDW (test code = 1038) 13.1 % NEUTROPHILS (test code = 1008) 62.0 % LYMPHOCYTES (test code = 1010) 26.1 % MONOCYTES (test code = 1011) 9.9 % EOSINOPHILS (test code = 1012) 0.7 % BASOPHILS (test code = 1013) 0.9 % IMMATURE GRANULOCYTES (test code = 1036) 0.4 % NUCLEATED RBCS (test code = 1065) 0.0 /100WBC'S PLATELET COUNT (test code = 1015) 265 K/UL ABSOLUTE NEUTROPHILS (test c ode = 1066) 3.45 K/UL ABSOLUTE LYMPHOCYTES (test c ode = 1067) 1.45 K/UL ABSOLUTE MONOCYTES (test cod e = 1068) 0.55 K/UL ABSOLUTE EOSINOPHILS (test c ode = 1040) 0.04 K/UL ABSOLUTE BASOPHILS (test cod e = 1069) 0.05 K/UL ABS IMMATURE GRANULOCYTES (t est code = 1020) 0.02 K/UL ABS NUCLEATED RBCS (test cod e = 04298) 0.00 K/UL Fortunato HernándezFSH + LH [id number] 00:00:00* Test Item Value Reference Range Interpretation Comme nts FOLLICLE STIM HORMONE (test code = 2700) 6.6 IU/L LUTEINIZING HORMONE (test co de = 2776) 11.4 IU/L Fortunato [id number] 00:00:00* Test Item Value Reference Range Interpretation Comme nts ESTRADIOL (test code = 2505) 128.0 PG/ML Fortunato HernándezTSH, THIRD [id number] 00:00:00* Test Item Value Reference Range Interpretation Comme nts TSH, THIRD GENERATION (test code = 2821) 2.010 UIU/ML Fortunato HernándezCOMPREHENSIVE METABOLIC [id number] 06:00:59* Test Item Value Reference Range Interpretation Comme nts GLUCOSE (test code = 2217) 92 MG/DL 70-99 BUN (test code = 2208) 15 MG/DL 6-20 CREATININE (test code = 2214) 0.75 MG/DL 0.60-1.30 eGFR (2020 CKD-EPI) (test code = 95808) 100 ML/MIN/1.73 >60 CALC BUN/CREAT (test code = 2235) 20 RATIO 6-28 SODIUM (test code = 2231) 143 MEQ/L 133-146 POTASSIUM (test code = 2228) 4.9 MEQ/L 3.5-5.4 CHLORIDE (test code = 2215) 107 MEQ/L 95-107 CARBON DIOXIDE (test code = 2206) 26 MEQ/L 19-31 CALCIUM (test code = 2208) 9.4 MG/DL 8.5-10.5 PROTEIN, TOTAL (test code = 222) 6.6 G/DL 6.1-8.3 ALBUMIN (test code = 2201) 4.3 G/DL 3.5-5.2 CALC GLOBULIN (test code = 2240) 2.3 G/DL 1.9-3.7 CALC A/G RATIO (test code = 223) 1.9 RATIO 1.0-2.6 BILIRUBIN, TOTAL (test code = 2206) 0.4 MG/DL <=1.2 ALKALINE PHOSPHATASE (test code = 2203) 53 U/L 40-116 AST (test code = 221) 20 U/L 9-40 ALT (test code = 2218) 26 U/L 5-40 LIPID [id number] 06:00:59* Test Item Value Reference Range Interpretation Comme nts CHOLESTEROL (test code = 2209) 148 MG/DL <200 TRIGLYCERIDES (test code = 2231) 89 MG/DL <150 HDL CHOLESTEROL (test code = 2219) 54 MG/DL >39 CALC LDL CHOL (test code = 2236) 77 MG/DL <100 NOTE: CALCULATED LDL IS BASED ON JEFFY-CHUA METHOD WHICHINCLUDES ADJUSTABLE TRIGLYCERIDE:VLDL CHOLESTEROL RATIO.THIS FACTOR VARIES BY MEASURED TRIGLYCERIDE AND NON-HDLCHOLESTEROL CONCENTRATIONS WITH INCREASED CALCULATED LDL SEENIN HIGHER TRIGLYCERIDE OR LOWER NON-HDL SPECIMENS. FOR MOREINFORMATION, SEE CLIENT ANNOUNCEMENT AT [email or web address] RISK RATIO LDL/HDL (test code = 2237) 1.43 RATIO <3.22 CBC W/AUTO DIFF WITH [id number] 03:09:41* Test Item Value Reference Range Interpretation Comme nts WBC (test code = 1001) 4.1 K/UL 3.5-11.0 RBC (test code = 1002) 3.65 M/UL 3.80-5.40 L HEMOGLOBIN (test code = 1003) 10.9 G/DL 11.5-15.5 L HEMATOCRIT (test code = 1004) 34.1 % 34.0-45.0 MCV (test code = 1005) 93.4 fL 80.0-99.0 MCH (test code = 1006) 29.9 PG 25.0-33.0 MCHC (test code = 1007) 32.0 G/DL 31.0-36.0 RDW (test code = 1038) 13.7 % 11.5-15.0 NEUTROPHILS (test code = 1008) 57.8 % LYMPHOCYTES (test code = 1010) 29.1 % MONOCYTES (test code = 1011) 8.9 % EOSINOPHILS (test code = 1012) 3.0 % BASOPHILS (test code = 1013) 1.0 % IMMATURE GRANULOCYTES (test code = 1036) 0.2 % NUCLEATED RBCS (test code = 1065) 0.0 /100 WBC'S See_Comment [Automated message] The system which generated this result transmitted reference range: 0.0. The reference range was not used to interpret this result as normal/abnormal. PLATELET COUNT (test code = 1015) 273 K/UL 130-400 ABSOLUTE NEUTROPHILS (test code = 1066) 2.35 K/UL 1.50-7.50 ABSOLUTE LYMPHOCYTES (test code = 1067) 1.18 K/UL 1.00-4.00 ABSOLUTE MONOCYTES (test code = 1068) 0.36 K/UL 0.20-1.00 ABSOLUTE EOSINOPHILS (test code = 1040) 0.12 K/UL 0.00-0.50 ABSOLUTE BASOPHILS (test code = 1069) 0.04 K/UL 0.00-0.20 ABS IMMATURE GRANULOCYTES (test code = 1020) 0.01 K/UL 0.00-0.10 ABS NUCLEATED RBCS (test code = 83077) 0.00 K/UL 0.00-0.11 UNLESS OTHER KIM INDICATED, ALL TESTING PERFORMED AT [facility] [address] [place] [address] COTTON DISPATCHER: PEBBLES MORALES M.D. CLIA NUMBER [id number] [facility] [place]. [id number] LIPID [id number] 00:00:00* Test Item Value Reference Range Interpretation Comme nts CHOLESTEROL (test code = 2210) 148 MG/DL TRIGLYCERIDES (test code = 2232) 89 MG/DL HDL CHOLESTEROL (test code = 2220) 54 MG/DL CALC LDL CHOL (test code = 2237) 77 MG/DL RISK RATIO LDL/HDL (test cod e = 2238) 1.43 RATIO Fortunato HernándezCBC W/AUTO [id number] 00:00:00* Test Item Value Reference Range Interpretation Comme nts WBC (test code = 1001) 4.1 K/UL RBC (test code = 1002) 3.65 M/UL HEMOGLOBIN (test code = 1003) 10.9 G/DL HEMATOCRIT (test code = 1004) 34.1 % MCV (test code = 1005) 93.4 fL MCH (test code = 1006) 29.9 PG MCHC (test code = 1007) 32.0 G/DL RDW (test code = 1038) 13.7 % NEUTROPHILS (test code = 1008) 57.8 % LYMPHOCYTES (test code = 1010) 29.1 % MONOCYTES (test code = 1011) 8.9 % EOSINOPHILS (test code = 1012) 3.0 % BASOPHILS (test code = 1013) 1.0 % IMMATURE GRANULOCYTES (test code = 1036) 0.2 % NUCLEATED RBCS (test code = 1065) 0.0 /100WBC'S PLATELET COUNT (test code = 1015) 273 K/UL ABSOLUTE NEUTROPHILS (test c ode = 1066) 2.35 K/UL ABSOLUTE LYMPHOCYTES (test c ode = 1067) 1.18 K/UL ABSOLUTE MONOCYTES (test cod e = 1068) 0.36 K/UL ABSOLUTE EOSINOPHILS (test c ode = 1040) 0.12 K/UL ABSOLUTE BASOPHILS (test cod e = 1069) 0.04 K/UL ABS IMMATURE GRANULOCYTES (t est code = 1020) 0.01 K/UL ABS NUCLEATED RBCS (test cod e = 54413) 0.00 K/UL Fortunato Moser EdgarCOMPREHENSIVE METABOLIC [id number] 00:00:00* Test Item Value Reference Range Interpretation Comme nts GLUCOSE (test code = 2217) 92 MG/DL BUN (test code = 2208) 15 MG/DL CREATININE (test code = 2214) 0.75 MG/DL eGFR (2020 CKD-EPI) (test code = 82985) 100 ML/MIN/1.73 CALC BUN/CREAT (test code = 2235) 20 RATIO SODIUM (test code = 2231) 143 MEQ/L POTASSIUM (test code = 2228) 4.9 MEQ/L CHLORIDE (test code = 2215) 107 MEQ/L CARBON DIOXIDE (test code = 2206) 26 MEQ/L CALCIUM (test code = 2209) 9.4 MG/DL PROTEIN, TOTAL (test code = 2229) 6.6 G/DL ALBUMIN (test code = 2201) 4.3 G/DL CALC GLOBULIN (test code = 2240) 2.3 G/DL CALC A/G RATIO (test code = 2234) 1.9 RATIO BILIRUBIN, TOTAL (test code = 2207) 0.4 MG/DL ALKALINE PHOSPHATASE (test code = 2204) 53 U/L AST (test code = 2218) 20 U/L ALT (test code = 2219) 26 U/L Fortunato HernándezLIPID [id number] 00:00:00* Test Item Value Reference Range Interpretation Comme nts CHOLESTEROL (test code = 2210) 148 MG/DL TRIGLYCERIDES (test code = 2232) 89 MG/DL HDL CHOLESTEROL (test code = 2220) 54 MG/DL CALC LDL CHOL (test code = 2237) 77 MG/DL RISK RATIO LDL/HDL (test cod e = 2238) 1.43 RATIO Fortunato HernándezCBC W/AUTO [id number] 00:00:00* Test Item Value Reference Range Interpretation Comme nts WBC (test code = 1001) 4.1 K/UL RBC (test code = 1002) 3.65 M/UL HEMOGLOBIN (test code = 1003) 10.9 G/DL HEMATOCRIT (test code = 1004) 34.1 % MCV (test code = 1005) 93.4 fL MCH (test code = 1006) 29.9 PG MCHC (test code = 1007) 32.0 G/DL RDW (test code = 1038) 13.7 % NEUTROPHILS (test code = 1008) 57.8 % LYMPHOCYTES (test code = 1010) 29.1 % MONOCYTES (test code = 1011) 8.9 % EOSINOPHILS (test code = 1012) 3.0 % BASOPHILS (test code = 1013) 1.0 % IMMATURE GRANULOCYTES (test code = 1036) 0.2 % NUCLEATED RBCS (test code = 1065) 0.0 /100WBC'S PLATELET COUNT (test code = 1015) 273 K/UL ABSOLUTE NEUTROPHILS (test c ode = 1066) 2.35 K/UL ABSOLUTE LYMPHOCYTES (test c ode = 1067) 1.18 K/UL ABSOLUTE MONOCYTES (test cod e = 1068) 0.36 K/UL ABSOLUTE EOSINOPHILS (test c ode = 1040) 0.12 K/UL ABSOLUTE BASOPHILS (test cod e = 1069) 0.04 K/UL ABS IMMATURE GRANULOCYTES (t est code = 1020) 0.01 K/UL ABS NUCLEATED RBCS (test cod e = 71503) 0.00 K/UL Fortunato HernándezCOMPREHENSIVE METABOLIC [id number] 00:00:00* Test Item Value Reference Range Interpretation Comme nts GLUCOSE (test code = 2217) 92 MG/DL BUN (test code = 2208) 15 MG/DL CREATININE (test code = 2214) 0.75 MG/DL eGFR (2020 CKD-EPI) (test code = 27940) 100 ML/MIN/1.73 CALC BUN/CREAT (test code = 2235) 20 RATIO SODIUM (test code = 2231) 143 MEQ/L POTASSIUM (test code = 2228) 4.9 MEQ/L CHLORIDE (test code = 2215) 107 MEQ/L CARBON DIOXIDE (test code = 2206) 26 MEQ/L CALCIUM (test code = 2209) 9.4 MG/DL PROTEIN, TOTAL (test code = 2229) 6.6 G/DL ALBUMIN (test code = 2201) 4.3 G/DL CALC GLOBULIN (test code = 2240) 2.3 G/DL CALC A/G RATIO (test code = 2234) 1.9 RATIO BILIRUBIN, TOTAL (test code = 2207) 0.4 MG/DL ALKALINE PHOSPHATASE (test code = 2204) 53 U/L AST (test code = 2218) 20 U/L ALT (test code = 2219) 26 U/L Fortunato HernándezLIPID [id number] 00:00:00* Test Item Value Reference Range Interpretation Comme nts CHOLESTEROL (test code = 2210) 148 MG/DL TRIGLYCERIDES (test code = 2232) 89 MG/DL HDL CHOLESTEROL (test code = 2220) 54 MG/DL CALC LDL CHOL (test code = 2237) 77 MG/DL RISK RATIO LDL/HDL (test cod e = 2238) 1.43 RATIO Fortunato HernándezCBC W/AUTO [id number] 00:00:00* Test Item Value Reference Range Interpretation Comme nts WBC (test code = 1001) 4.1 K/UL RBC (test code = 1002) 3.65 M/UL HEMOGLOBIN (test code = 1003) 10.9 G/DL HEMATOCRIT (test code = 1004) 34.1 % MCV (test code = 1005) 93.4 fL MCH (test code = 1006) 29.9 PG MCHC (test code = 1007) 32.0 G/DL RDW (test code = 1038) 13.7 % NEUTROPHILS (test code = 1008) 57.8 % LYMPHOCYTES (test code = 1010) 29.1 % MONOCYTES (test code = 1011) 8.9 % EOSINOPHILS (test code = 1012) 3.0 % BASOPHILS (test code = 1013) 1.0 % IMMATURE GRANULOCYTES (test code = 1036) 0.2 % NUCLEATED RBCS (test code = 1065) 0.0 /100WBC'S PLATELET COUNT (test code = 1015) 273 K/UL ABSOLUTE NEUTROPHILS (test c ode = 1066) 2.35 K/UL ABSOLUTE LYMPHOCYTES (test c ode = 1067) 1.18 K/UL ABSOLUTE MONOCYTES (test cod e = 1068) 0.36 K/UL ABSOLUTE EOSINOPHILS (test c ode = 1040) 0.12 K/UL ABSOLUTE BASOPHILS (test cod e = 1069) 0.04 K/UL ABS IMMATURE GRANULOCYTES (t est code = 1020) 0.01 K/UL ABS NUCLEATED RBCS (test cod e = 73913) 0.00 K/UL Fortunato Moser EdgarCOMPREHENSIVE METABOLIC [id number] 00:00:00* Test Item Value Reference Range Interpretation Comme nts GLUCOSE (test code = 2217) 92 MG/DL BUN (test code = 2208) 15 MG/DL CREATININE (test code = 2214) 0.75 MG/DL eGFR (2020 CKD-EPI) (test code = 28068) 100 ML/MIN/1.73 CALC BUN/CREAT (test code = 2235) 20 RATIO SODIUM (test code = 2231) 143 MEQ/L POTASSIUM (test code = 2228) 4.9 MEQ/L CHLORIDE (test code = 2215) 107 MEQ/L CARBON DIOXIDE (test code = 2206) 26 MEQ/L CALCIUM (test code = 2209) 9.4 MG/DL PROTEIN, TOTAL (test code = 2229) 6.6 G/DL ALBUMIN (test code = 2201) 4.3 G/DL CALC GLOBULIN (test code = 2240) 2.3 G/DL CALC A/G RATIO (test code = 2234) 1.9 RATIO BILIRUBIN, TOTAL (test code = 2207) 0.4 MG/DL ALKALINE PHOSPHATASE (test code = 2204) 53 U/L AST (test code = 2218) 20 U/L ALT (test code = 2219) 26 U/L Fortunato HernándezLIPID [id number] 00:00:00* Test Item Value Reference Range Interpretation Comme nts CHOLESTEROL (test code = 2210) 148 MG/DL TRIGLYCERIDES (test code = 2232) 89 MG/DL HDL CHOLESTEROL (test code = 2220) 54 MG/DL CALC LDL CHOL (test code = 2237) 77 MG/DL RISK RATIO LDL/HDL (test cod e = 2238) 1.43 RATIO Fortunato HernándezCBC W/AUTO [id number] 00:00:00* Test Item Value Reference Range Interpretation Comme nts WBC (test code = 1001) 4.1 K/UL RBC (test code = 1002) 3.65 M/UL HEMOGLOBIN (test code = 1003) 10.9 G/DL HEMATOCRIT (test code = 1004) 34.1 % MCV (test code = 1005) 93.4 fL MCH (test code = 1006) 29.9 PG MCHC (test code = 1007) 32.0 G/DL RDW (test code = 1038) 13.7 % NEUTROPHILS (test code = 1008) 57.8 % LYMPHOCYTES (test code = 1010) 29.1 % MONOCYTES (test code = 1011) 8.9 % EOSINOPHILS (test code = 1012) 3.0 % BASOPHILS (test code = 1013) 1.0 % IMMATURE GRANULOCYTES (test code = 1036) 0.2 % NUCLEATED RBCS (test code = 1065) 0.0 /100WBC'S PLATELET COUNT (test code = 1015) 273 K/UL ABSOLUTE NEUTROPHILS (test c ode = 1066) 2.35 K/UL ABSOLUTE LYMPHOCYTES (test c ode = 1067) 1.18 K/UL ABSOLUTE MONOCYTES (test cod e = 1068) 0.36 K/UL ABSOLUTE EOSINOPHILS (test c ode = 1040) 0.12 K/UL ABSOLUTE BASOPHILS (test cod e = 1069) 0.04 K/UL ABS IMMATURE GRANULOCYTES (t est code = 1020) 0.01 K/UL ABS NUCLEATED RBCS (test cod e = 51281) 0.00 K/UL Fortunato HernándezCOMPREHENSIVE METABOLIC [id number] 00:00:00* Test Item Value Reference Range Interpretation Comme nts GLUCOSE (test code = 2217) 92 MG/DL BUN (test code = 2208) 15 MG/DL CREATININE (test code = 2214) 0.75 MG/DL eGFR (2020 CKD-EPI) (test code = 57838) 100 ML/MIN/1.73 CALC BUN/CREAT (test code = 2235) 20 RATIO SODIUM (test code = 2231) 143 MEQ/L POTASSIUM (test code = 2228) 4.9 MEQ/L CHLORIDE (test code = 2215) 107 MEQ/L CARBON DIOXIDE (test code = 2206) 26 MEQ/L CALCIUM (test code = 2209) 9.4 MG/DL PROTEIN, TOTAL (test code = 2229) 6.6 G/DL ALBUMIN (test code = 2201) 4.3 G/DL CALC GLOBULIN (test code = 2240) 2.3 G/DL CALC A/G RATIO (test code = 2234) 1.9 RATIO BILIRUBIN, TOTAL (test code = 2207) 0.4 MG/DL ALKALINE PHOSPHATASE (test code = 2204) 53 U/L AST (test code = 2218) 20 U/L ALT (test code = 2219) 26 U/L Fortunato HernándezLIPID [id number] 00:00:00* Test Item Value Reference Range Interpretation Comme nts CHOLESTEROL (test code = 2210) 148 MG/DL TRIGLYCERIDES (test code = 2232) 89 MG/DL HDL CHOLESTEROL (test code = 2220) 54 MG/DL CALC LDL CHOL (test code = 2237) 77 MG/DL RISK RATIO LDL/HDL (test cod e = 2238) 1.43 RATIO Fortunato HernándezCBC W/AUTO [id number] 00:00:00* Test Item Value Reference Range Interpretation Comme nts WBC (test code = 1001) 4.1 K/UL RBC (test code = 1002) 3.65 M/UL HEMOGLOBIN (test code = 1003) 10.9 G/DL HEMATOCRIT (test code = 1004) 34.1 % MCV (test code = 1005) 93.4 fL MCH (test code = 1006) 29.9 PG MCHC (test code = 1007) 32.0 G/DL RDW (test code = 1038) 13.7 % NEUTROPHILS (test code = 1008) 57.8 % LYMPHOCYTES (test code = 1010) 29.1 % MONOCYTES (test code = 1011) 8.9 % EOSINOPHILS (test code = 1012) 3.0 % BASOPHILS (test code = 1013) 1.0 % IMMATURE GRANULOCYTES (test code = 1036) 0.2 % NUCLEATED RBCS (test code = 1065) 0.0 /100WBC'S PLATELET COUNT (test code = 1015) 273 K/UL ABSOLUTE NEUTROPHILS (test c ode = 1066) 2.35 K/UL ABSOLUTE LYMPHOCYTES (test c ode = 1067) 1.18 K/UL ABSOLUTE MONOCYTES (test cod e = 1068) 0.36 K/UL ABSOLUTE EOSINOPHILS (test c ode = 1040) 0.12 K/UL ABSOLUTE BASOPHILS (test cod e = 1069) 0.04 K/UL ABS IMMATURE GRANULOCYTES (t est code = 1020) 0.01 K/UL ABS NUCLEATED RBCS (test cod e = 11820) 0.00 K/UL Fortunato HernándezCOMPREHENSIVE METABOLIC [id number] 00:00:00* Test Item Value Reference Range Interpretation Comme nts GLUCOSE (test code = 2217) 92 MG/DL BUN (test code = 2208) 15 MG/DL CREATININE (test code = 2214) 0.75 MG/DL eGFR (2020 CKD-EPI) (test code = 04164) 100 ML/MIN/1.73 CALC BUN/CREAT (test code = 2235) 20 RATIO SODIUM (test code = 2231) 143 MEQ/L POTASSIUM (test code = 2228) 4.9 MEQ/L CHLORIDE (test code = 2215) 107 MEQ/L CARBON DIOXIDE (test code = 2206) 26 MEQ/L CALCIUM (test code = 2209) 9.4 MG/DL PROTEIN, TOTAL (test code = 2229) 6.6 G/DL ALBUMIN (test code = 2201) 4.3 G/DL CALC GLOBULIN (test code = 2240) 2.3 G/DL CALC A/G RATIO (test code = 2234) 1.9 RATIO BILIRUBIN, TOTAL (test code = 2207) 0.4 MG/DL ALKALINE PHOSPHATASE (test code = 2204) 53 U/L AST (test code = 2218) 20 U/L ALT (test code = 2219) 26 U/L Fortunato HernándezLIPID [id number] 00:00:00* Test Item Value Reference Range Interpretation Comme nts CHOLESTEROL (test code = 2210) 148 MG/DL TRIGLYCERIDES (test code = 2232) 89 MG/DL HDL CHOLESTEROL (test code = 2220) 54 MG/DL CALC LDL CHOL (test code = 2237) 77 MG/DL RISK RATIO LDL/HDL (test cod e = 2238) 1.43 RATIO Fortunato HernándezCBC W/AUTO [id number] 00:00:00* Test Item Value Reference Range Interpretation Comme nts WBC (test code = 1001) 4.1 K/UL RBC (test code = 1002) 3.65 M/UL HEMOGLOBIN (test code = 1003) 10.9 G/DL HEMATOCRIT (test code = 1004) 34.1 % MCV (test code = 1005) 93.4 fL MCH (test code = 1006) 29.9 PG MCHC (test code = 1007) 32.0 G/DL RDW (test code = 1038) 13.7 % NEUTROPHILS (test code = 1008) 57.8 % LYMPHOCYTES (test code = 1010) 29.1 % MONOCYTES (test code = 1011) 8.9 % EOSINOPHILS (test code = 1012) 3.0 % BASOPHILS (test code = 1013) 1.0 % IMMATURE GRANULOCYTES (test code = 1036) 0.2 % NUCLEATED RBCS (test code = 1065) 0.0 /100WBC'S PLATELET COUNT (test code = 1015) 273 K/UL ABSOLUTE NEUTROPHILS (test c ode = 1066) 2.35 K/UL ABSOLUTE LYMPHOCYTES (test c ode = 1067) 1.18 K/UL ABSOLUTE MONOCYTES (test cod e = 1068) 0.36 K/UL ABSOLUTE EOSINOPHILS (test c ode = 1040) 0.12 K/UL ABSOLUTE BASOPHILS (test cod e = 1069) 0.04 K/UL ABS IMMATURE GRANULOCYTES (t est code = 1020) 0.01 K/UL ABS NUCLEATED RBCS (test cod e = 27799) 0.00 K/UL Fortunato HernándezCOMPREHENSIVE METABOLIC [id number] 00:00:00* Test Item Value Reference Range Interpretation Comme nts GLUCOSE (test code = 2217) 92 MG/DL BUN (test code = 2208) 15 MG/DL CREATININE (test code = 2214) 0.75 MG/DL eGFR (2020 CKD-EPI) (test code = 62308) 100 ML/MIN/1.73 CALC BUN/CREAT (test code = 2235) 20 RATIO SODIUM (test code = 2231) 143 MEQ/L POTASSIUM (test code = 2228) 4.9 MEQ/L CHLORIDE (test code = 2215) 107 MEQ/L CARBON DIOXIDE (test code = 2206) 26 MEQ/L CALCIUM (test code = 2209) 9.4 MG/DL PROTEIN, TOTAL (test code = 2229) 6.6 G/DL ALBUMIN (test code = 2201) 4.3 G/DL CALC GLOBULIN (test code = 2240) 2.3 G/DL CALC A/G RATIO (test code = 2234) 1.9 RATIO BILIRUBIN, TOTAL (test code = 2207) 0.4 MG/DL ALKALINE PHOSPHATASE (test code = 2204) 53 U/L AST (test code = 2218) 20 U/L ALT (test code = 2219) 26 U/L Fortunato HernándezLIPID [id number] 00:00:00* Test Item Value Reference Range Interpretation Comme nts CHOLESTEROL (test code = 2210) 148 MG/DL TRIGLYCERIDES (test code = 2232) 89 MG/DL HDL CHOLESTEROL (test code = 2220) 54 MG/DL CALC LDL CHOL (test code = 2237) 77 MG/DL RISK RATIO LDL/HDL (test cod e = 2238) 1.43 RATIO Fortunato HernándezCBC W/AUTO [id number] 00:00:00* Test Item Value Reference Range Interpretation Comme nts WBC (test code = 1001) 4.1 K/UL RBC (test code = 1002) 3.65 M/UL HEMOGLOBIN (test code = 1003) 10.9 G/DL HEMATOCRIT (test code = 1004) 34.1 % MCV (test code = 1005) 93.4 fL MCH (test code = 1006) 29.9 PG MCHC (test code = 1007) 32.0 G/DL RDW (test code = 1038) 13.7 % NEUTROPHILS (test code = 1008) 57.8 % LYMPHOCYTES (test code = 1010) 29.1 % MONOCYTES (test code = 1011) 8.9 % EOSINOPHILS (test code = 1012) 3.0 % BASOPHILS (test code = 1013) 1.0 % IMMATURE GRANULOCYTES (test code = 1036) 0.2 % NUCLEATED RBCS (test code = 1065) 0.0 /100WBC'S PLATELET COUNT (test code = 1015) 273 K/UL ABSOLUTE NEUTROPHILS (test c ode = 1066) 2.35 K/UL ABSOLUTE LYMPHOCYTES (test c ode = 1067) 1.18 K/UL ABSOLUTE MONOCYTES (test cod e = 1068) 0.36 K/UL ABSOLUTE EOSINOPHILS (test c ode = 1040) 0.12 K/UL ABSOLUTE BASOPHILS (test cod e = 1069) 0.04 K/UL ABS IMMATURE GRANULOCYTES (t est code = 1020) 0.01 K/UL ABS NUCLEATED RBCS (test cod e = 04293) 0.00 K/UL Fortunato HernándezCOMPREHENSIVE METABOLIC [id number] 00:00:00* Test Item Value Reference Range Interpretation Comme nts GLUCOSE (test code = 2217) 92 MG/DL BUN (test code = 2208) 15 MG/DL CREATININE (test code = 2214) 0.75 MG/DL eGFR (2020 CKD-EPI) (test code = 09201) 100 ML/MIN/1.73 CALC BUN/CREAT (test code = 2235) 20 RATIO SODIUM (test code = 2231) 143 MEQ/L POTASSIUM (test code = 2228) 4.9 MEQ/L CHLORIDE (test code = 2215) 107 MEQ/L CARBON DIOXIDE (test code = 2206) 26 MEQ/L CALCIUM (test code = 2209) 9.4 MG/DL PROTEIN, TOTAL (test code = 2229) 6.6 G/DL ALBUMIN (test code = 2201) 4.3 G/DL CALC GLOBULIN (test code = 2240) 2.3 G/DL CALC A/G RATIO (test code = 2234) 1.9 RATIO BILIRUBIN, TOTAL (test code = 2207) 0.4 MG/DL ALKALINE PHOSPHATASE (test code = 2204) 53 U/L AST (test code = 2218) 20 U/L ALT (test code = 2219) 26 U/L Fortunato HernándezCT/NG, NAAT, [id number] 18:51:10* Test Item Value Reference Range Interpretation Comme nts CHLAMYDIA, NAAT, URINE (test code = 58834) NEGATIVE NEGATIVE Testing is perfo rmed with Ana NIKI 6800/8800 systems usingreal-time polymerase chain reaction (PCR) method. A negative result does not exclude low level infection, specimensampling error, or collection error. GONORRHEA, NAAT, URINE (test code = 67758) NEGATIVE NEGATIVE Testing is perfo rmed with Ana NIKI 6800/8800 systems usingreal-time polymerase chain reaction (PCR) method. A negative result does not exclude low level infection, specimensampling error, or collection error. HEPATITIS PANEL, [id number] 03:47:15* Test Item Value Reference Range Interpretation Comme nts HEPATITIS A IgM (test code = 86905) NON-REACTIVE NON-REACTIVE HEPATITIS B CORE IgM (test code = 4644) NON-REACTIVE NON-REACTIVE HEPATITIS B SURF AG (test code = 2739) NON-REACTIVE NON-REACTIVE HEPATITIS C ANTIBODY (test code = 4675) NON-REACTIVE NON-REACTIVE INTERPRETATION HEPATITIS A: (test code = 2552) (NOTE) Hepatitis A serology shows no evidence of acute hepatitis A. INTERPRETATION HEPATITIS B: (test code = 34350) (NOTE) Hepatitis B serology shows no evidence of acute hepatitis B andno indication of exposure to hepatitis B virus in the previous steph eight months. INTERPRETATION HEPATITIS C: (test code = 79780) (NOTE) Hepatitis C serology shows no evidence of exposure to hepatitisC virus at this time. It can take up to 12 months after exposure tothe hepatitis C virus for antibodies to become detectable in the blood in certain patients. HIV 1/2 4TH GEN, RFLX [id number] 03:47:15* Test Item Value Reference Range Interpretation Comme nts HIV 1/2 4TH GEN, RFLX CONF (test code = 3514) NON-REACTIVE NON-REACTIVE UNLESS OTHERWISE INDICATED, ALL TESTING PERFORMED AT [facility] [address] [place] [id number] [employer] DISPATCHER: PEBBLES MORALES M.D. [place] NUMBER [id number] [facility] [place]. [id number] RPR REFLEX TO T. PALLIDUM - [id number] 02:56:30* Test Item Value Reference Range Interpretation Comme nts RPR (test code = 60877) NON-REACTIVE NON-REACTIVE RPR TITER (test code = 3500) NOT INDIC. TITER NOT INDIC. RPR REFLEX TO T. PALLIDUM - [id number] 00:00:00* Test Item Value Reference Range Interpretation Comme nts RPR (test code = 91929) NON-REACTIVE RPR TITER (test code = 3500) NOT INDIC. TITER Fortunato HernándezACUTE HEPATITIS [id number] 00:00:00* Test Item Value Reference Range Interpretation Comme nts HEPATITIS A IgM (test code = 64727) NON-REACTIVE HEPATITIS B CORE IgM (test c ode = 4644) NON-REACTIVE HEPATITIS B SURF AG (test co de = 2739) NON-REACTIVE HEPATITIS C ANTIBODY (test c ode = 4675) NON-REACTIVE INTERPRETATION HEPATITIS A: (test code = 2552) (NOTE) INTERPRETATION HEPATITIS B: (test code = 81639) (NOTE) INTERPRETATION HEPATITIS C: (test code = 49448) (NOTE) Fortunato HernándezCT/NG, TMA, [id number] 00:00:00* Test Item Value Reference Range Interpretation Comme nts CHLAMYDIA, NAAT, URINE (test code = 34192) NEGATIVE GONORRHEA, NAAT, URINE (test code = 54875) NEGATIVE Fortunato HernándezHIV 1/2 4TH GEN, RFLX [id number] 00:00:00* Test Item Value Reference Range Interpretation Comme nts HIV 1/2 4TH GEN, RFLX CONF ( test code = 3514) NON-REACTIVE Fortunato Moser AustinRPR REFLEX TO T. PALLIDUM - [id number] 00:00:00* Test Item Value Reference Range Interpretation Comme nts RPR (test code = 52963) NON-REACTIVE RPR TITER (test code = 3500) NOT INDIC. TITER Fortunato HernándezACUTE HEPATITIS [id number] 00:00:00* Test Item Value Reference Range Interpretation Comme nts HEPATITIS A IgM (test code = 12098) NON-REACTIVE HEPATITIS B CORE IgM (test c ode = 4644) NON-REACTIVE HEPATITIS B SURF AG (test co de = 2739) NON-REACTIVE HEPATITIS C ANTIBODY (test c ode = 4675) NON-REACTIVE INTERPRETATION HEPATITIS A: (test code = 2552) (NOTE) INTERPRETATION HEPATITIS B: (test code = 67279) (NOTE) INTERPRETATION HEPATITIS C: (test code = 47239) (NOTE) Fortunato Moser AustinCT/NG, TMA, [id number] 00:00:00* Test Item Value Reference Range Interpretation Comme nts CHLAMYDIA, NAAT, URINE (test code = 11806) NEGATIVE GONORRHEA, NAAT, URINE (test code = 32963) NEGATIVE Fortunato HernándezHIV 1/2 4TH GEN, RFLX [id number] 00:00:00* Test Item Value Reference Range Interpretation Comme nts HIV 1/2 4TH GEN, RFLX CONF ( test code = 3514) NON-REACTIVE Fortunato HernándezRPR REFLEX TO T. PALLIDUM - [id number] 00:00:00* Test Item Value Reference Range Interpretation Comme nts RPR (test code = 95938) NON-REACTIVE RPR TITER (test code = 3500) NOT INDIC. TITER Fortunato HernándezACUTE HEPATITIS [id number] 00:00:00* Test Item Value Reference Range Interpretation Comme nts HEPATITIS A IgM (test code = 80616) NON-REACTIVE HEPATITIS B CORE IgM (test c ode = 4644) NON-REACTIVE HEPATITIS B SURF AG (test co de = 2739) NON-REACTIVE HEPATITIS C ANTIBODY (test c ode = 4675) NON-REACTIVE INTERPRETATION HEPATITIS A: (test code = 2552) (NOTE) INTERPRETATION HEPATITIS B: (test code = 83236) (NOTE) INTERPRETATION HEPATITIS C: (test code = 79075) (NOTE) Fortunato Moser AustinCT/NG, TMA, [id number] 00:00:00* Test Item Value Reference Range Interpretation Comme nts CHLAMYDIA, NAAT, URINE (test code = 25738) NEGATIVE GONORRHEA, NAAT, URINE (test code = 82008) NEGATIVE Fortunato HernándezHIV 1/2 4TH GEN, RFLX [id number] 00:00:00* Test Item Value Reference Range Interpretation Comme nts HIV 1/2 4TH GEN, RFLX CONF ( test code = 3514) NON-REACTIVE Fortunato Moser AustinRPR REFLEX TO T. PALLIDUM - [id number] 00:00:00* Test Item Value Reference Range Interpretation Comme nts RPR (test code = 40526) NON-REACTIVE RPR TITER (test code = 3500) NOT INDIC. TITER Fortunato HernándezACUTE HEPATITIS [id number] 00:00:00* Test Item Value Reference Range Interpretation Comme nts HEPATITIS A IgM (test code = 02678) NON-REACTIVE HEPATITIS B CORE IgM (test c ode = 4644) NON-REACTIVE HEPATITIS B SURF AG (test co de = 2739) NON-REACTIVE HEPATITIS C ANTIBODY (test c ode = 4675) NON-REACTIVE INTERPRETATION HEPATITIS A: (test code = 2552) (NOTE) INTERPRETATION HEPATITIS B: (test code = 27397) (NOTE) INTERPRETATION HEPATITIS C: (test code = 83539) (NOTE) Fortunato Moser AustinCT/NG, TMA, [id number] 00:00:00* Test Item Value Reference Range Interpretation Comme nts CHLAMYDIA, NAAT, URINE (test code = 97010) NEGATIVE GONORRHEA, NAAT, URINE (test code = 01065) NEGATIVE Fortunato HernándezHIV 1/2 4TH GEN, RFLX [id number] 00:00:00* Test Item Value Reference Range Interpretation Comme nts HIV 1/2 4TH GEN, RFLX CONF ( test code = 3514) NON-REACTIVE Fortunato Moser AustinRPR REFLEX TO T. PALLIDUM - [id number] 00:00:00* Test Item Value Reference Range Interpretation Comme nts RPR (test code = 85069) NON-REACTIVE RPR TITER (test code = 3500) NOT INDIC. TITER Fortunato HernándezACUTE HEPATITIS [id number] 00:00:00* Test Item Value Reference Range Interpretation Comme nts HEPATITIS A IgM (test code = 83993) NON-REACTIVE HEPATITIS B CORE IgM (test c ode = 4644) NON-REACTIVE HEPATITIS B SURF AG (test co de = 2739) NON-REACTIVE HEPATITIS C ANTIBODY (test c ode = 4675) NON-REACTIVE INTERPRETATION HEPATITIS A: (test code = 2552) (NOTE) INTERPRETATION HEPATITIS B: (test code = 72588) (NOTE) INTERPRETATION HEPATITIS C: (test code = 62563) (NOTE) Fortunato Moser AustinCT/NG, TMA, [id number] 00:00:00* Test Item Value Reference Range Interpretation Comme nts CHLAMYDIA, NAAT, URINE (test code = 19812) NEGATIVE GONORRHEA, NAAT, URINE (test code = 07380) NEGATIVE Fortunato Moser AustinHIV 1/2 4TH GEN, RFLX [id number] 00:00:00* Test Item Value Reference Range Interpretation Comme nts HIV 1/2 4TH GEN, RFLX CONF ( test code = 3514) NON-REACTIVE Fortunato Moser AustinRPR REFLEX TO T. PALLIDUM - [id number] 00:00:00* Test Item Value Reference Range Interpretation Comme nts RPR (test code = 76364) NON-REACTIVE RPR TITER (test code = 3500) NOT INDIC. TITER Fortunato HernándezACUTE HEPATITIS [id number] 00:00:00* Test Item Value Reference Range Interpretation Comme nts HEPATITIS A IgM (test code = 08581) NON-REACTIVE HEPATITIS B CORE IgM (test c ode = 4644) NON-REACTIVE HEPATITIS B SURF AG (test co de = 2739) NON-REACTIVE HEPATITIS C ANTIBODY (test c ode = 4675) NON-REACTIVE INTERPRETATION HEPATITIS A: (test code = 2552) (NOTE) INTERPRETATION HEPATITIS B: (test code = 95177) (NOTE) INTERPRETATION HEPATITIS C: (test code = 26056) (NOTE) Fortunato Msoer AustinCT/NG, TMA, [id number] 00:00:00* Test Item Value Reference Range Interpretation Comme nts CHLAMYDIA, NAAT, URINE (test code = 02744) NEGATIVE GONORRHEA, NAAT, URINE (test code = 49554) NEGATIVE Fortunato Moser AustinHIV 1/2 4TH GEN, RFLX [id number] 00:00:00* Test Item Value Reference Range Interpretation Comme nts HIV 1/2 4TH GEN, RFLX CONF ( test code = 3514) NON-REACTIVE Fortunato Moser AustinRPR REFLEX TO T. PALLIDUM - [id number] 00:00:00* Test Item Value Reference Range Interpretation Comme nts RPR (test code = 94531) NON-REACTIVE RPR TITER (test code = 3500) NOT INDIC. TITER Fortunato HernándezACUTE HEPATITIS [id number] 00:00:00* Test Item Value Reference Range Interpretation Comme nts HEPATITIS A IgM (test code = 73623) NON-REACTIVE HEPATITIS B CORE IgM (test c ode = 4644) NON-REACTIVE HEPATITIS B SURF AG (test co de = 2739) NON-REACTIVE HEPATITIS C ANTIBODY (test c ode = 4675) NON-REACTIVE INTERPRETATION HEPATITIS A: (test code = 2552) (NOTE) INTERPRETATION HEPATITIS B: (test code = 94372) (NOTE) INTERPRETATION HEPATITIS C: (test code = 67415) (NOTE) Fortunato HernándezCT/NG, TMA, [id number] 00:00:00* Test Item Value Reference Range Interpretation Comme nts CHLAMYDIA, NAAT, URINE (test code = 85402) NEGATIVE GONORRHEA, NAAT, URINE (test code = 17694) NEGATIVE Fortunato HernándezHIV 1/2 4TH GEN, RFLX [id number] 00:00:00* Test Item Value Reference Range Interpretation Comme nts HIV 1/2 4TH GEN, RFLX CONF ( test code = 3514) NON-REACTIVE Fortunato HernándezVAGINAL PATHOGENS DNA [id number] 00:00:00* Test Item Value Reference Range Interpretation Comme nts JANENE SPECIES (test code = 17461) NEGATIVE G. VAGINALIS (test code = 45177) POSITIVE T. VAGINALIS (test code = 60758) NEGATIVE Fortunato Moser AustinVAGINAL PATHOGENS DNA [id number] 00:00:00* Test Item Value Reference Range Interpretation Comme nts JANENE SPECIES (test code = 35786) NEGATIVE G. VAGINALIS (test code = 08052) POSITIVE T. VAGINALIS (test code = 57073) NEGATIVE Fortunato Moser AustinVAGINAL PATHOGENS DNA [id number] 00:00:00* Test Item Value Reference Range Interpretation Comme nts JANENE SPECIES (test code = 88053) NEGATIVE G. VAGINALIS (test code = 32295) POSITIVE T. VAGINALIS (test code = 72200) NEGATIVE Fortunato Moser AustinVAGINAL PATHOGENS DNA [id number] 00:00:00* Test Item Value Reference Range Interpretation Comme nts JANENE SPECIES (test code = 22238) NEGATIVE G. VAGINALIS (test code = 32664) POSITIVE T. VAGINALIS (test code = 47969) NEGATIVE Fortunato Moser AustinVAGINAL PATHOGENS DNA [id number] 00:00:00* Test Item Value Reference Range Interpretation Comme nts JANENE SPECIES (test code = ) NEGATIVE G. VAGINALIS (test code = 05503) POSITIVE T. VAGINALIS (test code = 23622) NEGATIVE Fortunato Moser AustinVAGINAL PATHOGENS DNA [id number] 00:00:00* Test Item Value Reference Range Interpretation Comme nts JANENE SPECIES (test code = 47256) NEGATIVE G. VAGINALIS (test code = 83033) POSITIVE T. VAGINALIS (test code = 05149) NEGATIVE Fortunato Moser AustinVAGINAL PATHOGENS DNA [id number] 00:00:00* Test Item Value Reference Range Interpretation Comme nts JANENE SPECIES (test code = ) NEGATIVE G. VAGINALIS (test code = 72436) POSITIVE T. VAGINALIS (test code = 95558) NEGATIVE Fortunato Moser AustinLIPID [id number] 03:41:04* Test Item Value Reference Range Interpretation Comme nts CHOLESTEROL (test code = 2210) 196 MG/DL <200 TRIGLYCERIDES (test code = 2232) 208 MG/DL <150 H HDL CHOLESTEROL (test code = 2220) 54 MG/DL >39 CALC LDL CHOL (test code = 2237) 110 MG/DL <100 H NOTE: CALCULATED LDL IS BASED ON JEFFY-CHUA METHOD WHICHINCLUDES ADJUSTABLE TRIGLYCERIDE:VLDL CHOLESTEROL RATIO.THIS FACTOR VARIES BY MEASURED TRIGLYCERIDE AND NON-HDLCHOLESTEROL CONCENTRATIONS WITH INCREASED CALCULATED LDL SEENIN HIGHER TRIGLYCERIDE OR LOWER NON-HDL SPECIMENS. FOR MOREINFORMATION, SEE CLIENT ANNOUNCEMENT AT [email or web address] RATIO LDL/HDL (test code = 2238) 2.04 RATIO <3.22 UNLESS OTHERW ISE INDICATED, ALL TESTING PERFORMED AT [facility] [address] [place] [id number] [employer]OT[employer] DISPATCHER: PEBBLES MORALES M.D. CLIA NUMBER [id number] [place]. [id number] CBC W/AUTO DIFF WITH [id number] 03:01:48* Test Item Value Reference Range Interpretation Comme nts WBC (test code = 1001) 5.5 K/UL 3.5-11.0 RBC (test code = 1002) 4.59 M/UL 3.80-5.40 HEMOGLOBIN (test code = 1003) 12.8 G/DL 11.5-15.5 HEMATOCRIT (test code = 1004) 39.8 % 34.0-45.0 MCV (test code = 1005) 86.7 fL 80.0-99.0 MCH (test code = 1006) 27.9 PG 25.0-33.0 MCHC (test code = 1007) 32.2 G/DL 31.0-36.0 RDW (test code = 1038) 14.6 % 11.5-15.0 NEUTROPHILS (test code = 1008) 61.8 % LYMPHOCYTES (test code = 1010) 25.3 % MONOCYTES (test code = 1011) 10.1 % EOSINOPHILS (test code = 1012) 1.3 % BASOPHILS (test code = 1013) 1.3 % IMMATURE GRANULOCYTES (test code = 1036) 0.2 % NUCLEATED RBCS (test code = 1065) 0.0 /100 WBC'S See_Comment [Automated messa ge] The system which generated this result transmitted reference range: 0.0. The reference range was not used to interpret this result as normal/abnormal. PLATELET COUNT (test code = 1015) 306 K/UL 130-400 ABSOLUTE NEUTROPHILS (test code = 1066) 3.38 K/UL 1.50-7.50 ABSOLUTE LYMPHOCYTES (test code = 1067) 1.38 K/UL 1.00-4.00 ABSOLUTE MONOCYTES (test code = 1068) 0.55 K/UL 0.20-1.00 ABSOLUTE EOSINOPHILS (test code = 1040) 0.07 K/UL 0.00-0.50 ABSOLUTE BASOPHILS (test code = 1069) 0.07 K/UL 0.00-0.20 ABS IMMATURE GRANULOCYTES (test code = 1020) 0.01 K/UL 0.00-0.10 ABS NUCLEATED RBCS (test code = 27617) 0.00 K/UL 0.00-0.11 LIPID [id number] 00:00:00* Test Item Value Reference Range Interpretation Comme nts CHOLESTEROL (test code = 2210) 196 MG/DL TRIGLYCERIDES (test code = 2232) 208 MG/DL HDL CHOLESTEROL (test code = 2220) 54 MG/DL CALC LDL CHOL (test code = 2237) 110 MG/DL RISK RATIO LDL/HDL (test cod e = 2238) 2.04 RATIO Fortunato Moser [facility] W/AUTO [id number] 00:00:00* Test Item Value Reference Range Interpretation Comme nts WBC (test code = 1001) 5.5 K/UL RBC (test code = 1002) 4.59 M/UL HEMOGLOBIN (test code = 1003) 12.8 G/DL HEMATOCRIT (test code = 1004) 39.8 % MCV (test code = 1005) 86.7 fL MCH (test code = 1006) 27.9 PG MCHC (test code = 1007) 32.2 G/DL RDW (test code = 1038) 14.6 % NEUTROPHILS (test code = 1008) 61.8 % LYMPHOCYTES (test code = 1010) 25.3 % MONOCYTES (test code = 1011) 10.1 % EOSINOPHILS (test code = 1012) 1.3 % BASOPHILS (test code = 1013) 1.3 % IMMATURE GRANULOCYTES (test code = 1036) 0.2 % NUCLEATED RBCS (test code = 1065) 0.0 /100WBC'S PLATELET COUNT (test code = 1015) 306 K/UL ABSOLUTE NEUTROPHILS (test c ode = 1066) 3.38 K/UL ABSOLUTE LYMPHOCYTES (test c ode = 1067) 1.38 K/UL ABSOLUTE MONOCYTES (test cod e = 1068) 0.55 K/UL ABSOLUTE EOSINOPHILS (test c ode = 1040) 0.07 K/UL ABSOLUTE BASOPHILS (test cod e = 1069) 0.07 K/UL ABS IMMATURE GRANULOCYTES (t est code = 1020) 0.01 K/UL ABS NUCLEATED RBCS (test cod e = 92551) 0.00 K/UL Fortunato HernándezLIPID [id number] 00:00:00* Test Item Value Reference Range Interpretation Comme nts CHOLESTEROL (test code = 2210) 196 MG/DL TRIGLYCERIDES (test code = 2232) 208 MG/DL HDL CHOLESTEROL (test code = 2220) 54 MG/DL CALC LDL CHOL (test code = 2237) 110 MG/DL RISK RATIO LDL/HDL (test cod e = 2238) 2.04 RATIO Fortunato F AustinCBC W/AUTO [id number] 00:00:00* Test Item Value Reference Range Interpretation Comme nts WBC (test code = 1001) 5.5 K/UL RBC (test code = 1002) 4.59 M/UL HEMOGLOBIN (test code = 1003) 12.8 G/DL HEMATOCRIT (test code = 1004) 39.8 % MCV (test code = 1005) 86.7 fL MCH (test code = 1006) 27.9 PG MCHC (test code = 1007) 32.2 G/DL RDW (test code = 1038) 14.6 % NEUTROPHILS (test code = 1008) 61.8 % LYMPHOCYTES (test code = 1010) 25.3 % MONOCYTES (test code = 1011) 10.1 % EOSINOPHILS (test code = 1012) 1.3 % BASOPHILS (test code = 1013) 1.3 % IMMATURE GRANULOCYTES (test code = 1036) 0.2 % NUCLEATED RBCS (test code = 1065) 0.0 /100WBC'S PLATELET COUNT (test code = 1015) 306 K/UL ABSOLUTE NEUTROPHILS (test c ode = 1066) 3.38 K/UL ABSOLUTE LYMPHOCYTES (test c ode = 1067) 1.38 K/UL ABSOLUTE MONOCYTES (test cod e = 1068) 0.55 K/UL ABSOLUTE EOSINOPHILS (test c ode = 1040) 0.07 K/UL ABSOLUTE BASOPHILS (test cod e = 1069) 0.07 K/UL ABS IMMATURE GRANULOCYTES (t est code = 1020) 0.01 K/UL ABS NUCLEATED RBCS (test cod e = 99296) 0.00 K/UL Fortunato HernándezLIPID [id number] 00:00:00* Test Item Value Reference Range Interpretation Comme nts CHOLESTEROL (test code = 2210) 196 MG/DL TRIGLYCERIDES (test code = 2232) 208 MG/DL HDL CHOLESTEROL (test code = 2220) 54 MG/DL CALC LDL CHOL (test code = 2237) 110 MG/DL RISK RATIO LDL/HDL (test cod e = 2238) 2.04 RATIO Fortunato HernándezC W/AUTO [id number] 00:00:00* Test Item Value Reference Range Interpretation Comme nts WBC (test code = 1001) 5.5 K/UL RBC (test code = 1002) 4.59 M/UL HEMOGLOBIN (test code = 1003) 12.8 G/DL HEMATOCRIT (test code = 1004) 39.8 % MCV (test code = 1005) 86.7 fL MCH (test code = 1006) 27.9 PG MCHC (test code = 1007) 32.2 G/DL RDW (test code = 1038) 14.6 % NEUTROPHILS (test code = 1008) 61.8 % LYMPHOCYTES (test code = 1010) 25.3 % MONOCYTES (test code = 1011) 10.1 % EOSINOPHILS (test code = 1012) 1.3 % BASOPHILS (test code = 1013) 1.3 % IMMATURE GRANULOCYTES (test code = 1036) 0.2 % NUCLEATED RBCS (test code = 1065) 0.0 /100WBC'S PLATELET COUNT (test code = 1015) 306 K/UL ABSOLUTE NEUTROPHILS (test c ode = 1066) 3.38 K/UL ABSOLUTE LYMPHOCYTES (test c ode = 1067) 1.38 K/UL ABSOLUTE MONOCYTES (test cod e = 1068) 0.55 K/UL ABSOLUTE EOSINOPHILS (test c ode = 1040) 0.07 K/UL ABSOLUTE BASOPHILS (test cod e = 1069) 0.07 K/UL ABS IMMATURE GRANULOCYTES (t est code = 1020) 0.01 K/UL ABS NUCLEATED RBCS (test cod e = 98568) 0.00 K/UL Fortunato HernándezLIPID [id number] 00:00:00* Test Item Value Reference Range Interpretation Comme nts CHOLESTEROL (test code = 2210) 196 MG/DL TRIGLYCERIDES (test code = 2232) 208 MG/DL HDL CHOLESTEROL (test code = 2220) 54 MG/DL CALC LDL CHOL (test code = 2237) 110 MG/DL RISK RATIO LDL/HDL (test cod e = 2238) 2.04 RATIO Fortunato HernándezCBC W/AUTO [id number] 00:00:00* Test Item Value Reference Range Interpretation Comme nts WBC (test code = 1001) 5.5 K/UL RBC (test code = 1002) 4.59 M/UL HEMOGLOBIN (test code = 1003) 12.8 G/DL HEMATOCRIT (test code = 1004) 39.8 % MCV (test code = 1005) 86.7 fL MCH (test code = 1006) 27.9 PG MCHC (test code = 1007) 32.2 G/DL RDW (test code = 1038) 14.6 % NEUTROPHILS (test code = 1008) 61.8 % LYMPHOCYTES (test code = 1010) 25.3 % MONOCYTES (test code = 1011) 10.1 % EOSINOPHILS (test code = 1012) 1.3 % BASOPHILS (test code = 1013) 1.3 % IMMATURE GRANULOCYTES (test code = 1036) 0.2 % NUCLEATED RBCS (test code = 1065) 0.0 /100WBC'S PLATELET COUNT (test code = 1015) 306 K/UL ABSOLUTE NEUTROPHILS (test c ode = 1066) 3.38 K/UL ABSOLUTE LYMPHOCYTES (test c ode = 1067) 1.38 K/UL ABSOLUTE MONOCYTES (test cod e = 1068) 0.55 K/UL ABSOLUTE EOSINOPHILS (test c ode = 1040) 0.07 K/UL ABSOLUTE BASOPHILS (test cod e = 1069) 0.07 K/UL ABS IMMATURE GRANULOCYTES (t est code = 1020) 0.01 K/UL ABS NUCLEATED RBCS (test cod e = 46379) 0.00 K/UL Fortunato HernándezLIPID [id number] 00:00:00* Test Item Value Reference Range Interpretation Comme nts CHOLESTEROL (test code = 2210) 196 MG/DL TRIGLYCERIDES (test code = 2232) 208 MG/DL HDL CHOLESTEROL (test code = 2220) 54 MG/DL CALC LDL CHOL (test code = 2237) 110 MG/DL RISK RATIO LDL/HDL (test cod e = 2238) 2.04 RATIO Fortunato Moser EdgarCBC W/AUTO [id number] 00:00:00* Test Item Value Reference Range Interpretation Comme nts WBC (test code = 1001) 5.5 K/UL RBC (test code = 1002) 4.59 M/UL HEMOGLOBIN (test code = 1003) 12.8 G/DL HEMATOCRIT (test code = 1004) 39.8 % MCV (test code = 1005) 86.7 fL MCH (test code = 1006) 27.9 PG MCHC (test code = 1007) 32.2 G/DL RDW (test code = 1038) 14.6 % NEUTROPHILS (test code = 1008) 61.8 % LYMPHOCYTES (test code = 1010) 25.3 % MONOCYTES (test code = 1011) 10.1 % EOSINOPHILS (test code = 1012) 1.3 % BASOPHILS (test code = 1013) 1.3 % IMMATURE GRANULOCYTES (test code = 1036) 0.2 % NUCLEATED RBCS (test code = 1065) 0.0 /100WBC'S PLATELET COUNT (test code = 1015) 306 K/UL ABSOLUTE NEUTROPHILS (test c ode = 1066) 3.38 K/UL ABSOLUTE LYMPHOCYTES (test c ode = 1067) 1.38 K/UL ABSOLUTE MONOCYTES (test cod e = 1068) 0.55 K/UL ABSOLUTE EOSINOPHILS (test c ode = 1040) 0.07 K/UL ABSOLUTE BASOPHILS (test cod e = 1069) 0.07 K/UL ABS IMMATURE GRANULOCYTES (t est code = 1020) 0.01 K/UL ABS NUCLEATED RBCS (test cod e = 81543) 0.00 K/UL Fortunato HernándezLIPID [id number] 00:00:00* Test Item Value Reference Range Interpretation Comme nts CHOLESTEROL (test code = 2210) 196 MG/DL TRIGLYCERIDES (test code = 2232) 208 MG/DL HDL CHOLESTEROL (test code = 2220) 54 MG/DL CALC LDL CHOL (test code = 2237) 110 MG/DL RISK RATIO LDL/HDL (test cod e = 2238) 2.04 RATIO Fortunato HernándezCBC W/AUTO [id number] 00:00:00* Test Item Value Reference Range Interpretation Comme nts WBC (test code = 1001) 5.5 K/UL RBC (test code = 1002) 4.59 M/UL HEMOGLOBIN (test code = 1003) 12.8 G/DL HEMATOCRIT (test code = 1004) 39.8 % MCV (test code = 1005) 86.7 fL MCH (test code = 1006) 27.9 PG MCHC (test code = 1007) 32.2 G/DL RDW (test code = 1038) 14.6 % NEUTROPHILS (test code = 1008) 61.8 % LYMPHOCYTES (test code = 1010) 25.3 % MONOCYTES (test code = 1011) 10.1 % EOSINOPHILS (test code = 1012) 1.3 % BASOPHILS (test code = 1013) 1.3 % IMMATURE GRANULOCYTES (test code = 1036) 0.2 % NUCLEATED RBCS (test code = 1065) 0.0 /100WBC'S PLATELET COUNT (test code = 1015) 306 K/UL ABSOLUTE NEUTROPHILS (test c ode = 1066) 3.38 K/UL ABSOLUTE LYMPHOCYTES (test c ode = 1067) 1.38 K/UL ABSOLUTE MONOCYTES (test cod e = 1068) 0.55 K/UL ABSOLUTE EOSINOPHILS (test c ode = 1040) 0.07 K/UL ABSOLUTE BASOPHILS (test cod e = 1069) 0.07 K/UL ABS IMMATURE GRANULOCYTES (t est code = 1020) 0.01 K/UL ABS NUCLEATED RBCS (test cod e = 78664) 0.00 K/UL Fortunato HernándezLIPID [id number] 00:00:00* Test Item Value Reference Range Interpretation Comme nts CHOLESTEROL (test code = 2210) 196 MG/DL TRIGLYCERIDES (test code = 2232) 208 MG/DL HDL CHOLESTEROL (test code = 2220) 54 MG/DL CALC LDL CHOL (test code = 2237) 110 MG/DL RISK RATIO LDL/HDL (test cod e = 2238) 2.04 RATIO Fortunato HernándezCBC W/AUTO [id number] 00:00:00* Test Item Value Reference Range Interpretation Comme nts WBC (test code = 1001) 5.5 K/UL RBC (test code = 1002) 4.59 M/UL HEMOGLOBIN (test code = 1003) 12.8 G/DL HEMATOCRIT (test code = 1004) 39.8 % MCV (test code = 1005) 86.7 fL MCH (test code = 1006) 27.9 PG MCHC (test code = 1007) 32.2 G/DL RDW (test code = 1038) 14.6 % NEUTROPHILS (test code = 1008) 61.8 % LYMPHOCYTES (test code = 1010) 25.3 % MONOCYTES (test code = 1011) 10.1 % EOSINOPHILS (test code = 1012) 1.3 % BASOPHILS (test code = 1013) 1.3 % IMMATURE GRANULOCYTES (test code = 1036) 0.2 % NUCLEATED RBCS (test code = 1065) 0.0 /100WBC'S PLATELET COUNT (test code = 1015) 306 K/UL ABSOLUTE NEUTROPHILS (test c ode = 1066) 3.38 K/UL ABSOLUTE LYMPHOCYTES (test c ode = 1067) 1.38 K/UL ABSOLUTE MONOCYTES (test cod e = 1068) 0.55 K/UL ABSOLUTE EOSINOPHILS (test c ode = 1040) 0.07 K/UL ABSOLUTE BASOPHILS (test cod e = 1069) 0.07 K/UL ABS IMMATURE GRANULOCYTES (t est code = 1020) 0.01 K/UL ABS NUCLEATED RBCS (test cod e = 47088) 0.00 K/UL Fortunato Moser [facility] W/AUTO DIFF WITH [id number] 03:35:44* Test Item Value Reference Range Interpretation Comme nts WBC (test code = 1001) 3.5 K/UL 3.5-11.0 RBC (test code = 1002) 3.63 M/UL 3.80-5.40 L HEMOGLOBIN (test code = 1003) 10.6 G/DL 11.5-15.5 L HEMATOCRIT (test code = 1004) 32.7 % 34.0-45.0 L MCV (test code = 1005) 90.1 fL 80.0-99.0 MCH (test code = 1006) 29.2 PG 25.0-33.0 MCHC (test code = 1007) 32.4 G/DL 31.0-36.0 RDW (test code = 1038) 13.1 % 11.5-15.0 NEUTROPHILS (test code = 1008) 52.9 % LYMPHOCYTES (test code = 1010) 33.0 % MONOCYTES (test code = 1011) 11.6 % EOSINOPHILS (test code = 1012) 1.1 % BASOPHILS (test code = 1013) 1.4 % IMMATURE GRANULOCYTES (test code = 1036) 0.0 % NUCLEATED RBCS (test code = 1065) 0.0 /100 WBC'S See_Comment [Automated message] The system which generated this result transmitted reference range: 0.0. The reference range was not used to interpret this result as normal/abnormal. PLATELET COUNT (test code = 1015) 342 K/UL 130-400 ABSOLUTE NEUTROPHILS (test code = 1066) 1.86 K/UL 1.50-7.50 ABSOLUTE LYMPHOCYTES (test code = 1067) 1.16 K/UL 1.00-4.00 ABSOLUTE MONOCYTES (test code = 1068) 0.41 K/UL 0.20-1.00 ABSOLUTE EOSINOPHILS (test code = 1040) 0.04 K/UL 0.00-0.50 ABSOLUTE BASOPHILS (test code = 1069) 0.05 K/UL 0.00-0.20 ABS IMMATURE GRANULOCYTES (test code = 1020) 0.00 K/UL 0.00-0.10 ABS NUCLEATED RBCS (test code = 17337) 0.00 K/UL 0.00-0.11 UNLESS OTHER KIM INDICATED, ALL TESTING PERFORMED AT [facility] [employer] [employer] [address] [place] [id number] COTTON DISPATCHER: PEBBLES MORALES M.D. CLIA NUMBER [id number] [facility] [place]. [id number] CBC W/AUTO [id number] 00:00:00* Test Item Value Reference Range Interpretation Comme nts WBC (test code = 1001) 3.5 K/UL RBC (test code = 1002) 3.63 M/UL HEMOGLOBIN (test code = 1003) 10.6 G/DL HEMATOCRIT (test code = 1004) 32.7 % MCV (test code = 1005) 90.1 fL MCH (test code = 1006) 29.2 PG MCHC (test code = 1007) 32.4 G/DL RDW (test code = 1038) 13.1 % NEUTROPHILS (test code = 1008) 52.9 % LYMPHOCYTES (test code = 1010) 33.0 % MONOCYTES (test code = 1011) 11.6 % EOSINOPHILS (test code = 1012) 1.1 % BASOPHILS (test code = 1013) 1.4 % IMMATURE GRANULOCYTES (test code = 1036) 0.0 % NUCLEATED RBCS (test code = 1065) 0.0 /100WBC'S PLATELET COUNT (test code = 1015) 342 K/UL ABSOLUTE NEUTROPHILS (test c ode = 1066) 1.86 K/UL ABSOLUTE LYMPHOCYTES (test c ode = 1067) 1.16 K/UL ABSOLUTE MONOCYTES (test cod e = 1068) 0.41 K/UL ABSOLUTE EOSINOPHILS (test c ode = 1040) 0.04 K/UL ABSOLUTE BASOPHILS (test cod e = 1069) 0.05 K/UL ABS IMMATURE GRANULOCYTES (t est code = 1020) 0.00 K/UL ABS NUCLEATED RBCS (test cod e = 59544) 0.00 K/UL Fortunato F AustinCBC W/AUTO [id number] 00:00:00* Test Item Value Reference Range Interpretation Comme nts WBC (test code = 1001) 3.5 K/UL RBC (test code = 1002) 3.63 M/UL HEMOGLOBIN (test code = 1003) 10.6 G/DL HEMATOCRIT (test code = 1004) 32.7 % MCV (test code = 1005) 90.1 fL MCH (test code = 1006) 29.2 PG MCHC (test code = 1007) 32.4 G/DL RDW (test code = 1038) 13.1 % NEUTROPHILS (test code = 1008) 52.9 % LYMPHOCYTES (test code = 1010) 33.0 % MONOCYTES (test code = 1011) 11.6 % EOSINOPHILS (test code = 1012) 1.1 % BASOPHILS (test code = 1013) 1.4 % IMMATURE GRANULOCYTES (test code = 1036) 0.0 % NUCLEATED RBCS (test code = 1065) 0.0 /100WBC'S PLATELET COUNT (test code = 1015) 342 K/UL ABSOLUTE NEUTROPHILS (test c ode = 1066) 1.86 K/UL ABSOLUTE LYMPHOCYTES (test c ode = 1067) 1.16 K/UL ABSOLUTE MONOCYTES (test cod e = 1068) 0.41 K/UL ABSOLUTE EOSINOPHILS (test c ode = 1040) 0.04 K/UL ABSOLUTE BASOPHILS (test cod e = 1069) 0.05 K/UL ABS IMMATURE GRANULOCYTES (t est code = 1020) 0.00 K/UL ABS NUCLEATED RBCS (test cod e = 27954) 0.00 K/UL Fortunato HernándezCBC W/AUTO [id number] 00:00:00* Test Item Value Reference Range Interpretation Comme nts WBC (test code = 1001) 3.5 K/UL RBC (test code = 1002) 3.63 M/UL HEMOGLOBIN (test code = 1003) 10.6 G/DL HEMATOCRIT (test code = 1004) 32.7 % MCV (test code = 1005) 90.1 fL MCH (test code = 1006) 29.2 PG MCHC (test code = 1007) 32.4 G/DL RDW (test code = 1038) 13.1 % NEUTROPHILS (test code = 1008) 52.9 % LYMPHOCYTES (test code = 1010) 33.0 % MONOCYTES (test code = 1011) 11.6 % EOSINOPHILS (test code = 1012) 1.1 % BASOPHILS (test code = 1013) 1.4 % IMMATURE GRANULOCYTES (test code = 1036) 0.0 % NUCLEATED RBCS (test code = 1065) 0.0 /100WBC'S PLATELET COUNT (test code = 1015) 342 K/UL ABSOLUTE NEUTROPHILS (test c ode = 1066) 1.86 K/UL ABSOLUTE LYMPHOCYTES (test c ode = 1067) 1.16 K/UL ABSOLUTE MONOCYTES (test cod e = 1068) 0.41 K/UL ABSOLUTE EOSINOPHILS (test c ode = 1040) 0.04 K/UL ABSOLUTE BASOPHILS (test cod e = 1069) 0.05 K/UL ABS IMMATURE GRANULOCYTES (t est code = 1020) 0.00 K/UL ABS NUCLEATED RBCS (test cod e = 90028) 0.00 K/UL Fortuanto Moser [facility] W/AUTO [id number] 00:00:00* Test Item Value Reference Range Interpretation Comme nts WBC (test code = 1001) 3.5 K/UL RBC (test code = 1002) 3.63 M/UL HEMOGLOBIN (test code = 1003) 10.6 G/DL HEMATOCRIT (test code = 1004) 32.7 % MCV (test code = 1005) 90.1 fL MCH (test code = 1006) 29.2 PG MCHC (test code = 1007) 32.4 G/DL RDW (test code = 1038) 13.1 % NEUTROPHILS (test code = 1008) 52.9 % LYMPHOCYTES (test code = 1010) 33.0 % MONOCYTES (test code = 1011) 11.6 % EOSINOPHILS (test code = 1012) 1.1 % BASOPHILS (test code = 1013) 1.4 % IMMATURE GRANULOCYTES (test code = 1036) 0.0 % NUCLEATED RBCS (test code = 1065) 0.0 /100WBC'S PLATELET COUNT (test code = 1015) 342 K/UL ABSOLUTE NEUTROPHILS (test c ode = 1066) 1.86 K/UL ABSOLUTE LYMPHOCYTES (test c ode = 1067) 1.16 K/UL ABSOLUTE MONOCYTES (test cod e = 1068) 0.41 K/UL ABSOLUTE EOSINOPHILS (test c ode = 1040) 0.04 K/UL ABSOLUTE BASOPHILS (test cod e = 1069) 0.05 K/UL ABS IMMATURE GRANULOCYTES (t est code = 1020) 0.00 K/UL ABS NUCLEATED RBCS (test cod e = 34064) 0.00 K/UL Fortunato Moser [employer] W/AUTO [id number] 00:00:00* Test Item Value Reference Range Interpretation Comme nts WBC (test code = 1001) 3.5 K/UL RBC (test code = 1002) 3.63 M/UL HEMOGLOBIN (test code = 1003) 10.6 G/DL HEMATOCRIT (test code = 1004) 32.7 % MCV (test code = 1005) 90.1 fL MCH (test code = 1006) 29.2 PG MCHC (test code = 1007) 32.4 G/DL RDW (test code = 1038) 13.1 % NEUTROPHILS (test code = 1008) 52.9 % LYMPHOCYTES (test code = 1010) 33.0 % MONOCYTES (test code = 1011) 11.6 % EOSINOPHILS (test code = 1012) 1.1 % BASOPHILS (test code = 1013) 1.4 % IMMATURE GRANULOCYTES (test code = 1036) 0.0 % NUCLEATED RBCS (test code = 1065) 0.0 /100WBC'S PLATELET COUNT (test code = 1015) 342 K/UL ABSOLUTE NEUTROPHILS (test c ode = 1066) 1.86 K/UL ABSOLUTE LYMPHOCYTES (test c ode = 1067) 1.16 K/UL ABSOLUTE MONOCYTES (test cod e = 1068) 0.41 K/UL ABSOLUTE EOSINOPHILS (test c ode = 1040) 0.04 K/UL ABSOLUTE BASOPHILS (test cod e = 1069) 0.05 K/UL ABS IMMATURE GRANULOCYTES (t est code = 1020) 0.00 K/UL ABS NUCLEATED RBCS (test cod e = 26095) 0.00 K/UL [facility] [id number] 00:00:00* Test Item Value Reference Range Interpretation Comme nts WBC (test code = 1001) 3.5 K/UL RBC (test code = 1002) 3.63 M/UL HEMOGLOBIN (test code = 1003) 10.6 G/DL HEMATOCRIT (test code = 1004) 32.7 % MCV (test code = 1005) 90.1 fL MCH (test code = 1006) 29.2 PG MCHC (test code = 1007) 32.4 G/DL RDW (test code = 1038) 13.1 % NEUTROPHILS (test code = 1008) 52.9 % LYMPHOCYTES (test code = 1010) 33.0 % MONOCYTES (test code = 1011) 11.6 % EOSINOPHILS (test code = 1012) 1.1 % BASOPHILS (test code = 1013) 1.4 % IMMATURE GRANULOCYTES (test code = 1036) 0.0 % NUCLEATED RBCS (test code = 1065) 0.0 /100WBC'S PLATELET COUNT (test code = 1015) 342 K/UL ABSOLUTE NEUTROPHILS (test c ode = 1066) 1.86 K/UL ABSOLUTE LYMPHOCYTES (test c ode = 1067) 1.16 K/UL ABSOLUTE MONOCYTES (test cod e = 1068) 0.41 K/UL ABSOLUTE EOSINOPHILS (test c ode = 1040) 0.04 K/UL ABSOLUTE BASOPHILS (test cod e = 1069) 0.05 K/UL ABS IMMATURE GRANULOCYTES (t est code = 1020) 0.00 K/UL ABS NUCLEATED RBCS (test cod e = 63844) 0.00 K/UL [facility]AUTO [id number] 00:00:00* Test Item Value Reference Range Interpretation Comme nts WBC (test code = 1001) 3.5 K/UL RBC (test code = 1002) 3.63 M/UL HEMOGLOBIN (test code = 1003) 10.6 G/DL HEMATOCRIT (test code = 1004) 32.7 % MCV (test code = 1005) 90.1 fL MCH (test code = 1006) 29.2 PG MCHC (test code = 1007) 32.4 G/DL RDW (test code = 1038) 13.1 % NEUTROPHILS (test code = 1008) 52.9 % LYMPHOCYTES (test code = 1010) 33.0 % MONOCYTES (test code = 1011) 11.6 % EOSINOPHILS (test code = 1012) 1.1 % BASOPHILS (test code = 1013) 1.4 % IMMATURE GRANULOCYTES (test code = 1036) 0.0 % NUCLEATED RBCS (test code = 1065) 0.0 /100WBC'S PLATELET COUNT (test code = 1015) 342 K/UL ABSOLUTE NEUTROPHILS (test c ode = 1066) 1.86 K/UL ABSOLUTE LYMPHOCYTES (test c ode = 1067) 1.16 K/UL ABSOLUTE MONOCYTES (test cod e = 1068) 0.41 K/UL ABSOLUTE EOSINOPHILS (test c ode = 1040) 0.04 K/UL ABSOLUTE BASOPHILS (test cod e = 1069) 0.05 K/UL ABS IMMATURE GRANULOCYTES (t est code = 1020) 0.00 K/UL ABS NUCLEATED RBCS (test cod e = 24341) 0.00 K/UL [facility] [id number] 11:15:25* Test Item Value Reference Range Interpretation Comme nts JANENE SPECIES (test code = ) NEGATIVE NEGATIVE G. VAGINALIS (test code = 92940) POSITIVE NEGATIVE A T. VAGINALIS (test code = 02668) NEGATIVE NEGATIVE Note: The [facility] VPIII Microbial Identification Testis a DNA probe test intended for use in the detectionand identification of Janene species, Gardnerellavaginalis and Trichomonas vaginalis nucleic acid. UNLESS OTHERWISE INDICATED, ALL TESTING PERFORMED AT [facility] [address] [place] [address] COTTON DISPATCHER: PEBBLES MORALES M.D. [place] NUMBER [id number] [facility] [place]. [id number] VAGINAL PATHOGENS DNA [id number] 00:00:00* Test Item Value Reference Range Interpretation Comme nts JANENE SPECIES (test code = ) NEGATIVE G. VAGINALIS (test code = 64750) POSITIVE T. VAGINALIS (test code = ) NEGATIVE [facility] [id number] 00:00:00* Test Item Value Reference Range Interpretation Comme nts JANENE SPECIES (test code = 61206) NEGATIVE G. VAGINALIS (test code = 96616) POSITIVE T. VAGINALIS (test code = 41531) NEGATIVE [facility] [id number] 00:00:00* Test Item Value Reference Range Interpretation Comme nts JANENE SPECIES (test code = 26648) NEGATIVE G. VAGINALIS (test code = 62631) POSITIVE T. VAGINALIS (test code = 84213) NEGATIVE [facility] [id number] 00:00:00* Test Item Value Reference Range Interpretation Comme nts JANENE SPECIES (test code = ) NEGATIVE G. VAGINALIS (test code = 56205) POSITIVE T. VAGINALIS (test code = 20824) NEGATIVE [facility] [id number] 00:00:00* Test Item Value Reference Range Interpretation Comme nts JANENE SPECIES (test code = 18623) NEGATIVE G. VAGINALIS (test code = 40893) POSITIVE T. VAGINALIS (test code = 62529) NEGATIVE [facility] [id number] 00:00:00* Test Item Value Reference Range Interpretation Comme nts JANENE SPECIES (test code = 53979) NEGATIVE G. VAGINALIS (test code = 08760) POSITIVE T. VAGINALIS (test code = 38071) NEGATIVE [facility] [id number] 00:00:00* Test Item Value Reference Range Interpretation Comme nts JANENE SPECIES (test code = ) NEGATIVE G. VAGINALIS (test code = 87352) POSITIVE T. VAGINALIS (test code = 54464) NEGATIVE Fortunato Moser AustinLIPID [id number] 03:55:48* Test Item Value Reference Range Interpretation Comme nts CHOLESTEROL (test code = 2210) 194 MG/DL <200 TRIGLYCERIDES (test code = 2232) 411 MG/DL <150 H HDL CHOLESTEROL (test code = 2220) 43 MG/DL >39 CALC LDL CHOL (test code = 2237) (NOTE) MG/DL <100 UNABLE TO CALCUL ATE A VALID LDL CHOLESTEROL WHEN THE TRIGLYCERIDEVALUE IS GREATER THAN 400 MG/DL.UNABLE TO CALCULATE A VALID LDL CHOLESTEROL WHEN THE TRIGLYCERIDEVALUE IS GREATER THAN 400 MG/DL. NOTE: CALCULATED LDL IS BASED ON JEFFY-CHUA METHOD WHICHINCLUDES ADJUSTABLE TRIGLYCERIDE:VLDL CHOLESTEROL RATIO.THIS FACTOR VARIES BY MEASURED TRIGLYCERIDE AND NON-HDLCHOLESTEROL CONCENTRATIONS WITH INCREASED CALCULATED LDL SEENIN HIGHER TRIGLYCERIDE OR LOWER NON-HDL SPECIMENS. FOR MOREINFORMATION, SEE CLIENT ANNOUNCEMENT AT [email or web address] CalcLDL-C RISK RATIO LDL/HDL (test code = 2238) (NOTE) RATIO <3.22 UNABLE TO LORAINE CULATE UNLESS OTHERWISE INDICATED, ALL TESTING PERFORMED AT [facility] [address] [place] [id number] COTTON DISPATCHER: PEBBLES MORALES M.D. CLIA NUMBER [id number] [facility] [place]. [id number] LIPID [id number] 00:00:00* Test Item Value Reference Range Interpretation Comme nts CHOLESTEROL (test code = 2210) 194 MG/DL TRIGLYCERIDES (test code = 2232) 411 MG/DL HDL CHOLESTEROL (test code = 2220) 43 MG/DL CALC LDL CHOL (test code = 2237) (NOTE) MG/DL RISK RATIO LDL/HDL (test cod e = 2238) (NOTE) RATIO Fortunato Moser AustinLIP[facility] [id number] 00:00:00* Test Item Value Reference Range Interpretation Comme nts CHOLESTEROL (test code = 2210) 194 MG/DL TRIGLYCERIDES (test code = 2232) 411 MG/DL HDL CHOLESTEROL (test code = 2220) 43 MG/DL CALC LDL CHOL (test code = 2237) (NOTE) MG/DL RISK RATIO LDL/HDL (test cod e = 2238) (NOTE) RATIO Fortunato Moser AustinLIPID [id number] 00:00:00* Test Item Value Reference Range Interpretation Comme nts CHOLESTEROL (test code = 2210) 194 MG/DL TRIGLYCERIDES (test code = 2232) 411 MG/DL HDL CHOLESTEROL (test code = 2220) 43 MG/DL CALC LDL CHOL (test code = 2237) (NOTE) MG/DL RISK RATIO LDL/HDL (test cod e = 2238) (NOTE) RATIO Fortunato Moser AustinLIPID [id number] 00:00:00* Test Item Value Reference Range Interpretation Comme nts CHOLESTEROL (test code = 2210) 194 MG/DL TRIGLYCERIDES (test code = 2232) 411 MG/DL HDL CHOLESTEROL (test code = 2220) 43 MG/DL CALC LDL CHOL (test code = 2237) (NOTE) MG/DL RISK RATIO LDL/HDL (test cod e = 2238) (NOTE) RATIO Fortunato Moser AustinLIPID [id number] 00:00:00* Test Item Value Reference Range Interpretation Comme nts CHOLESTEROL (test code = 2210) 194 MG/DL TRIGLYCERIDES (test code = 2232) 411 MG/DL HDL CHOLESTEROL (test code = 2220) 43 MG/DL CALC LDL CHOL (test code = 2237) (NOTE) MG/DL RISK RATIO LDL/HDL (test cod e = 2238) (NOTE) RATIO Fortunato Moser AustinLIPID [id number] 00:00:00* Test Item Value Reference Range Interpretation Comme nts CHOLESTEROL (test code = 2210) 194 MG/DL TRIGLYCERIDES (test code = 2232) 411 MG/DL HDL CHOLESTEROL (test code = 2220) 43 MG/DL CALC LDL CHOL (test code = 2237) (NOTE) MG/DL RISK RATIO LDL/HDL (test cod e = 2238) (NOTE) RATIO Fortunato Moser AustinLIPID [id number] 00:00:00* Test Item Value Reference Range Interpretation Comme nts CHOLESTEROL (test code = 2210) 194 MG/DL TRIGLYCERIDES (test code = 2232) 411 MG/DL HDL CHOLESTEROL (test code = 2220) 43 MG/DL CALC LDL CHOL (test code = 2237) (NOTE) MG/DL RISK RATIO LDL/HDL (test cod e = 2238) (NOTE) RATIO Fortunato HernándezCOMPREHENSIVE METABOLIC [id number] 03:07:15* Test Item Value Reference Range Interpretation Comme nts GLUCOSE (test code = 2217) 115 MG/DL 70-99 H BUN (test code = 2207) 20 MG/DL 6-20 CREATININE (test code = 2214) 0.75 MG/DL 0.60-1.30 eGFR (2020 CKD-EPI) (test code = 30037) 101 ML/MIN/1.73 >60 CALC BUN/CREAT (test code = 2235) 27 RATIO 6-28 SODIUM (test code = 223) 140 MEQ/L 133-146 POTASSIUM (test code = 2228) 4.5 MEQ/L 3.5-5.4 CHLORIDE (test code = 2215) 100 MEQ/L 95-107 CARBON DIOXIDE (test code = 2206) 28 MEQ/L 19-31 CALCIUM (test code = 2209) 9.8 MG/DL 8.5-10.5 PROTEIN, TOTAL (test code = 2228) 7.4 G/DL 6.1-8.3 ALBUMIN (test code = 220) 4.8 G/DL 3.5-5.2 CALC GLOBULIN (test code = 2240) 2.6 G/DL 1.9-3.7 CALC A/G RATIO (test code = 2234) 1.8 RATIO 1.0-2.6 BILIRUBIN, TOTAL (test code = 2207) 0.3 MG/DL See_Comment [Automated me ssage] The system which generated this result transmitted reference range: <=1.2. The reference range was not used to interpret this result as normal/abnormal. ALKALINE PHOSPHATASE (test code = 4) 67 U/L 40-115 AST (test code = 2218) 23 U/L 9-40 ALT (test code = 2219) 26 U/L 5-40 LIPID [id number] 03:07:15* Test Item Value Reference Range Interpretation Comme nts CHOLESTEROL (test code = 2210) 210 MG/DL <200 H TRIGLYCERIDES (test code = 2232) 431 MG/DL <150 H HDL CHOLESTEROL (test code = 0) 60 MG/DL >39 CALC LDL CHOL (test code = 2237) (NOTE) MG/DL <100 UNABLE TO CALCUL ATE A VALID LDL CHOLESTEROL WHEN THE TRIGLYCERIDEVALUE IS GREATER THAN 400 MG/DL.UNABLE TO CALCULATE A VALID LDL CHOLESTEROL WHEN THE TRIGLYCERIDEVALUE IS GREATER THAN 400 MG/DL. NOTE: CALCULATED LDL IS BASED ON JEFFY-CHUA METHOD WHICHINCLUDES ADJUSTABLE TRIGLYCERIDE:VLDL CHOLESTEROL RATIO.THIS FACTOR VARIES BY MEASURED TRIGLYCERIDE AND NON-HDLCHOLESTEROL CONCENTRATIONS WITH INCREASED CALCULATED LDL SEENIN HIGHER TRIGLYCERIDE OR LOWER NON-HDL SPECIMENS. FOR MOREINFORMATION, SEE CLIENT ANNOUNCEMENT AT [email or web address] CalcLDL-C RISK RATIO LDL/HDL (test code = 2238) (NOTE) RATIO <3.22 UNABLE TO LORAINE CULATE IRON, [id number] 03:07:15* Test Item Value Reference Range Interpretation Comme nts IRON, SERUM (test code = 2222) 47 UG/DL 37-145 UNLESS OTHERWISE INDICATED, ALL TEST[facility] [address] [place] [address] COTTON DISPATCHER: FAROOQ DUBON M.D. CLIA NUMBER [id number] [facility] [place]. [id number] CBC W/AUTO DIFF WITH [id number] 02:38:20* Test Item Value Reference Range Interpretation Comme nts WBC (test code = 1001) 5.4 K/UL 3.5-11.0 RBC (test code = 1002) 4.16 M/UL 3.80-5.40 HEMOGLOBIN (test code = 1003) 11.8 G/DL 11.5-15.5 HEMATOCRIT (test code = 1004) 34.9 % 34.0-45.0 MCV (test code = 1005) 83.9 fL 80.0-99.0 MCH (test code = 1006) 28.4 PG 25.0-33.0 MCHC (test code = 1007) 33.8 G/DL 31.0-36.0 RDW (test code = 1038) 16.1 % 11.5-15.0 H NEUTROPHILS (test code = 1008) 57.6 % LYMPHOCYTES (test code = 1010) 31.0 % MONOCYTES (test code = 1011) 8.6 % EOSINOPHILS (test code = 1012) 1.5 % BASOPHILS (test code = 1013) 1.1 % IMMATURE GRANULOCYTES (test code = 1036) 0.2 % NUCLEATED RBCS (test code = 1065) 0.0 /100 WBC'S See_Comment [Automated Chemclina ge] The system which generated this result transmitted reference range: 0.0. The reference range was not used to interpret this result as normal/abnormal. PLATELET COUNT (test code = 1015) 320 K/UL 130-400 ABSOLUTE NEUTROPHILS (test code = 1066) 3.10 K/UL 1.50-7.50 ABSOLUTE LYMPHOCYTES (test code = 1067) 1.67 K/UL 1.00-4.00 ABSOLUTE MONOCYTES (test code = 1068) 0.46 K/UL 0.20-1.00 ABSOLUTE EOSINOPHILS (test code = 1040) 0.08 K/UL 0.00-0.50 ABSOLUTE BASOPHILS (test code = 1069) 0.06 K/UL 0.00-0.20 ABS IMMATURE GRANULOCYTES (test code = 1020) 0.01 K/UL 0.00-0.10 ABS NUCLEATED RBCS (test code = 03068) 0.00 K/UL 0.00-0.11 COMPREHENSIVE METABOLIC [id number] 00:00:00* Test Item Value Reference Range Interpretation Comme nts GLUCOSE (test code = 2217) 115 MG/DL BUN (test code = 2208) 20 MG/DL CREATININE (test code = 2214) 0.75 MG/DL eGFR (2020 CKD-EPI) (test code = 44752) 101 ML/MIN/1.73 CALC BUN/CREAT (test code = 2235) 27 RATIO SODIUM (test code = 2231) 140 MEQ/L POTASSIUM (test code = 2228) 4.5 MEQ/L CHLORIDE (test code = 2215) 100 MEQ/L CARBON DIOXIDE (test code = 2206) 28 MEQ/L CALCIUM (test code = 2209) 9.8 MG/DL PROTEIN, TOTAL (test code = 2229) 7.4 G/DL ALBUMIN (test code = 2201) 4.8 G/DL CALC GLOBULIN (test code = 2240) 2.6 G/DL CALC A/G RATIO (test code = 2234) 1.8 RATIO BILIRUBIN, TOTAL (test code = 2207) 0.3 MG/DL ALKALINE PHOSPHATASE (test code = 2204) 67 U/L AST (test code = 2218) 23 U/L ALT (test code = 2219) 26 U/L Fortunato Ehsan EdgarLIPID [id number] 00:00:00* Test Item Value Reference Range Interpretation Comme nts CHOLESTEROL (test code = 2210) 210 MG/DL TRIGLYCERIDES (test code = 2232) 431 MG/DL HDL CHOLESTEROL (test code = 2220) 60 MG/DL CALC LDL CHOL (test code = 2237) (NOTE) MG/DL RISK RATIO LDL/HDL (test cod e = 2238) (NOTE) RATIO Fortunato HernándezIRON, [id number] 00:00:00* Test Item Value Reference Range Interpretation Comme nts IRON, SERUM (test code = 2222) 47 UG/DL Fortunato Moser EdgarCBC W/AUTO [id number] 00:00:00* Test Item Value Reference Range Interpretation Comme nts WBC (test code = 1001) 5.4 K/UL RBC (test code = 1002) 4.16 M/UL HEMOGLOBIN (test code = 1003) 11.8 G/DL HEMATOCRIT (test code = 1004) 34.9 % MCV (test code = 1005) 83.9 fL MCH (test code = 1006) 28.4 PG MCHC (test code = 1007) 33.8 G/DL RDW (test code = 1038) 16.1 % NEUTROPHILS (test code = 1008) 57.6 % LYMPHOCYTES (test code = 1010) 31.0 % MONOCYTES (test code = 1011) 8.6 % EOSINOPHILS (test code = 1012) 1.5 % BASOPHILS (test code = 1013) 1.1 % IMMATURE GRANULOCYTES (test code = 1036) 0.2 % NUCLEATED RBCS (test code = 1065) 0.0 /100WBC'S PLATELET COUNT (test code = 1015) 320 K/UL ABSOLUTE NEUTROPHILS (test c ode = 1066) 3.10 K/UL ABSOLUTE LYMPHOCYTES (test c ode = 1067) 1.67 K/UL ABSOLUTE MONOCYTES (test cod e = 1068) 0.46 K/UL ABSOLUTE EOSINOPHILS (test c ode = 1040) 0.08 K/UL ABSOLUTE BASOPHILS (test cod e = 1069) 0.06 K/UL ABS IMMATURE GRANULOCYTES (t est code = 1020) 0.01 K/UL ABS NUCLEATED RBCS (test cod e = 20910) 0.00 K/UL Fortunato HernándezCOMPREHENSIVE METABOLIC [id number] 00:00:00* Test Item Value Reference Range Interpretation Comme nts GLUCOSE (test code = 2217) 115 MG/DL BUN (test code = 2208) 20 MG/DL CREATININE (test code = 2214) 0.75 MG/DL eGFR (2020 CKD-EPI) (test code = 70465) 101 ML/MIN/1.73 CALC BUN/CREAT (test code = 2235) 27 RATIO SODIUM (test code = 2231) 140 MEQ/L POTASSIUM (test code = 2228) 4.5 MEQ/L CHLORIDE (test code = 2215) 100 MEQ/L CARBON DIOXIDE (test code = 2206) 28 MEQ/L CALCIUM (test code = 2209) 9.8 MG/DL PROTEIN, TOTAL (test code = 2229) 7.4 G/DL ALBUMIN (test code = 2201) 4.8 G/DL CALC GLOBULIN (test code = 2240) 2.6 G/DL CALC A/G RATIO (test code = 2234) 1.8 RATIO BILIRUBIN, TOTAL (test code = 2207) 0.3 MG/DL ALKALINE PHOSPHATASE (test code = 2204) 67 U/L AST (test code = 2218) 23 U/L ALT (test code = 2219) 26 U/L Fortunato HernándezLIPID [id number] 00:00:00* Test Item Value Reference Range Interpretation Comme nts CHOLESTEROL (test code = 2210) 210 MG/DL TRIGLYCERIDES (test code = 2232) 431 MG/DL HDL CHOLESTEROL (test code = 2220) 60 MG/DL CALC LDL CHOL (test code = 2237) (NOTE) MG/DL RISK RATIO LDL/HDL (test cod e = 2238) (NOTE) RATIO Fortunato HernándezIRON, [id number] 00:00:00* Test Item Value Reference Range Interpretation Comme nts IRON, SERUM (test code = 2222) 47 UG/DL Fortunato HernándezCBC W/AUTO [id number] 00:00:00* Test Item Value Reference Range Interpretation Comme nts WBC (test code = 1001) 5.4 K/UL RBC (test code = 1002) 4.16 M/UL HEMOGLOBIN (test code = 1003) 11.8 G/DL HEMATOCRIT (test code = 1004) 34.9 % MCV (test code = 1005) 83.9 fL MCH (test code = 1006) 28.4 PG MCHC (test code = 1007) 33.8 G/DL RDW (test code = 1038) 16.1 % NEUTROPHILS (test code = 1008) 57.6 % LYMPHOCYTES (test code = 1010) 31.0 % MONOCYTES (test code = 1011) 8.6 % EOSINOPHILS (test code = 1012) 1.5 % BASOPHILS (test code = 1013) 1.1 % IMMATURE GRANULOCYTES (test code = 1036) 0.2 % NUCLEATED RBCS (test code = 1065) 0.0 /100WBC'S PLATELET COUNT (test code = 1015) 320 K/UL ABSOLUTE NEUTROPHILS (test c ode = 1066) 3.10 K/UL ABSOLUTE LYMPHOCYTES (test c ode = 1067) 1.67 K/UL ABSOLUTE MONOCYTES (test cod e = 1068) 0.46 K/UL ABSOLUTE EOSINOPHILS (test c ode = 1040) 0.08 K/UL ABSOLUTE BASOPHILS (test cod e = 1069) 0.06 K/UL ABS IMMATURE GRANULOCYTES (t est code = 1020) 0.01 K/UL ABS NUCLEATED RBCS (test cod e = 24589) 0.00 K/UL Fortunato HernándezCOMPREHENSIVE METABOLIC [id number] 00:00:00* Test Item Value Reference Range Interpretation Comme nts GLUCOSE (test code = 2217) 115 MG/DL BUN (test code = 2208) 20 MG/DL CREATININE (test code = 2214) 0.75 MG/DL eGFR (2020 CKD-EPI) (test code = 54027) 101 ML/MIN/1.73 CALC BUN/CREAT (test code = 2235) 27 RATIO SODIUM (test code = 2231) 140 MEQ/L POTASSIUM (test code = 2228) 4.5 MEQ/L CHLORIDE (test code = 2215) 100 MEQ/L CARBON DIOXIDE (test code = 2206) 28 MEQ/L CALCIUM (test code = 2209) 9.8 MG/DL PROTEIN, TOTAL (test code = 2229) 7.4 G/DL ALBUMIN (test code = 2201) 4.8 G/DL CALC GLOBULIN (test code = 2240) 2.6 G/DL CALC A/G RATIO (test code = 2234) 1.8 RATIO BILIRUBIN, TOTAL (test code = 2207) 0.3 MG/DL ALKALINE PHOSPHATASE (test code = 2204) 67 U/L AST (test code = 2218) 23 U/L ALT (test code = 2219) 26 U/L Fortunato HernándezLIPID [id number] 00:00:00* Test Item Value Reference Range Interpretation Comme nts CHOLESTEROL (test code = 2210) 210 MG/DL TRIGLYCERIDES (test code = 2232) 431 MG/DL HDL CHOLESTEROL (test code = 2220) 60 MG/DL CALC LDL CHOL (test code = 2237) (NOTE) MG/DL RISK RATIO LDL/HDL (test cod e = 2238) (NOTE) RATIO Fortunato Moser EdgarIRON, [id number] 00:00:00* Test Item Value Reference Range Interpretation Comme nts IRON, SERUM (test code = 2222) 47 UG/DL Fortunato Moser EdgarCBC W/AUTO [id number] 00:00:00* Test Item Value Reference Range Interpretation Comme nts WBC (test code = 1001) 5.4 K/UL RBC (test code = 1002) 4.16 M/UL HEMOGLOBIN (test code = 1003) 11.8 G/DL HEMATOCRIT (test code = 1004) 34.9 % MCV (test code = 1005) 83.9 fL MCH (test code = 1006) 28.4 PG MCHC (test code = 1007) 33.8 G/DL RDW (test code = 1038) 16.1 % NEUTROPHILS (test code = 1008) 57.6 % LYMPHOCYTES (test code = 1010) 31.0 % MONOCYTES (test code = 1011) 8.6 % EOSINOPHILS (test code = 1012) 1.5 % BASOPHILS (test code = 1013) 1.1 % IMMATURE GRANULOCYTES (test code = 1036) 0.2 % NUCLEATED RBCS (test code = 1065) 0.0 /100WBC'S PLATELET COUNT (test code = 1015) 320 K/UL ABSOLUTE NEUTROPHILS (test c ode = 1066) 3.10 K/UL ABSOLUTE LYMPHOCYTES (test c ode = 1067) 1.67 K/UL ABSOLUTE MONOCYTES (test cod e = 1068) 0.46 K/UL ABSOLUTE EOSINOPHILS (test c ode = 1040) 0.08 K/UL ABSOLUTE BASOPHILS (test cod e = 1069) 0.06 K/UL ABS IMMATURE GRANULOCYTES (t est code = 1020) 0.01 K/UL ABS NUCLEATED RBCS (test cod e = 24970) 0.00 K/UL Fortunato HernándezCOMPREHENSIVE METABOLIC [id number] 00:00:00* Test Item Value Reference Range Interpretation Comme nts GLUCOSE (test code = 2217) 115 MG/DL BUN (test code = 2208) 20 MG/DL CREATININE (test code = 2214) 0.75 MG/DL eGFR (2020 CKD-EPI) (test code = 08995) 101 ML/MIN/1.73 CALC BUN/CREAT (test code = 2235) 27 RATIO SODIUM (test code = 2231) 140 MEQ/L POTASSIUM (test code = 2228) 4.5 MEQ/L CHLORIDE (test code = 2215) 100 MEQ/L CARBON DIOXIDE (test code = 2206) 28 MEQ/L CALCIUM (test code = 2209) 9.8 MG/DL PROTEIN, TOTAL (test code = 2229) 7.4 G/DL ALBUMIN (test code = 2201) 4.8 G/DL CALC GLOBULIN (test code = 2240) 2.6 G/DL CALC A/G RATIO (test code = 2234) 1.8 RATIO BILIRUBIN, TOTAL (test code = 2207) 0.3 MG/DL ALKALINE PHOSPHATASE (test code = 2204) 67 U/L AST (test code = 2218) 23 U/L ALT (test code = 2219) 26 U/L Fortunato HernándezLIPID [id number] 00:00:00* Test Item Value Reference Range Interpretation Comme nts CHOLESTEROL (test code = 2210) 210 MG/DL TRIGLYCERIDES (test code = 2232) 431 MG/DL HDL CHOLESTEROL (test code = 2220) 60 MG/DL CALC LDL CHOL (test code = 2237) (NOTE) MG/DL RISK RATIO LDL/HDL (test cod e = 2238) (NOTE) RATIO Fortunato HernándezIRON, [id number] 00:00:00* Test Item Value Reference Range Interpretation Comme nts IRON, SERUM (test code = 2222) 47 UG/DL Fortunato HernándezCBC W/AUTO [id number] 00:00:00* Test Item Value Reference Range Interpretation Comme nts WBC (test code = 1001) 5.4 K/UL RBC (test code = 1002) 4.16 M/UL HEMOGLOBIN (test code = 1003) 11.8 G/DL HEMATOCRIT (test code = 1004) 34.9 % MCV (test code = 1005) 83.9 fL MCH (test code = 1006) 28.4 PG MCHC (test code = 1007) 33.8 G/DL RDW (test code = 1038) 16.1 % NEUTROPHILS (test code = 1008) 57.6 % LYMPHOCYTES (test code = 1010) 31.0 % MONOCYTES (test code = 1011) 8.6 % EOSINOPHILS (test code = 1012) 1.5 % BASOPHILS (test code = 1013) 1.1 % IMMATURE GRANULOCYTES (test code = 1036) 0.2 % NUCLEATED RBCS (test code = 1065) 0.0 /100WBC'S PLATELET COUNT (test code = 1015) 320 K/UL ABSOLUTE NEUTROPHILS (test c ode = 1066) 3.10 K/UL ABSOLUTE LYMPHOCYTES (test c ode = 1067) 1.67 K/UL ABSOLUTE MONOCYTES (test cod e = 1068) 0.46 K/UL ABSOLUTE EOSINOPHILS (test c ode = 1040) 0.08 K/UL ABSOLUTE BASOPHILS (test cod e = 1069) 0.06 K/UL ABS IMMATURE GRANULOCYTES (t est code = 1020) 0.01 K/UL ABS NUCLEATED RBCS (test cod e = 54151) 0.00 K/UL Fortunato HernándezCOMPREHENSIVE METABOLIC [id number] 00:00:00* Test Item Value Reference Range Interpretation Comme nts GLUCOSE (test code = 2217) 115 MG/DL BUN (test code = 2208) 20 MG/DL CREATININE (test code = 2214) 0.75 MG/DL eGFR (2020 CKD-EPI) (test code = 14935) 101 ML/MIN/1.73 CALC BUN/CREAT (test code = 2235) 27 RATIO SODIUM (test code = 2231) 140 MEQ/L POTASSIUM (test code = 2228) 4.5 MEQ/L CHLORIDE (test code = 2215) 100 MEQ/L CARBON DIOXIDE (test code = 2206) 28 MEQ/L CALCIUM (test code = 2209) 9.8 MG/DL PROTEIN, TOTAL (test code = 2229) 7.4 G/DL ALBUMIN (test code = 2201) 4.8 G/DL CALC GLOBULIN (test code = 2240) 2.6 G/DL CALC A/G RATIO (test code = 2234) 1.8 RATIO BILIRUBIN, TOTAL (test code = 2207) 0.3 MG/DL ALKALINE PHOSPHATASE (test code = 2204) 67 U/L AST (test code = 2218) 23 U/L ALT (test code = 2219) 26 U/L Fortunato HernándezLIPID [id number] 00:00:00* Test Item Value Reference Range Interpretation Comme nts CHOLESTEROL (test code = 2210) 210 MG/DL TRIGLYCERIDES (test code = 2232) 431 MG/DL HDL CHOLESTEROL (test code = 2220) 60 MG/DL CALC LDL CHOL (test code = 2237) (NOTE) MG/DL RISK RATIO LDL/HDL (test cod e = 2238) (NOTE) RATIO Fortunato HernándezIRON, [id number] 00:00:00* Test Item Value Reference Range Interpretation Comme nts IRON, SERUM (test code = 2222) 47 UG/DL Fortunato HernándezCBC W/AUTO [id number] 00:00:00* Test Item Value Reference Range Interpretation Comme nts WBC (test code = 1001) 5.4 K/UL RBC (test code = 1002) 4.16 M/UL HEMOGLOBIN (test code = 1003) 11.8 G/DL HEMATOCRIT (test code = 1004) 34.9 % MCV (test code = 1005) 83.9 fL MCH (test code = 1006) 28.4 PG MCHC (test code = 1007) 33.8 G/DL RDW (test code = 1038) 16.1 % NEUTROPHILS (test code = 1008) 57.6 % LYMPHOCYTES (test code = 1010) 31.0 % MONOCYTES (test code = 1011) 8.6 % EOSINOPHILS (test code = 1012) 1.5 % BASOPHILS (test code = 1013) 1.1 % IMMATURE GRANULOCYTES (test code = 1036) 0.2 % NUCLEATED RBCS (test code = 1065) 0.0 /100WBC'S PLATELET COUNT (test code = 1015) 320 K/UL ABSOLUTE NEUTROPHILS (test c ode = 1066) 3.10 K/UL ABSOLUTE LYMPHOCYTES (test c ode = 1067) 1.67 K/UL ABSOLUTE MONOCYTES (test cod e = 1068) 0.46 K/UL ABSOLUTE EOSINOPHILS (test c ode = 1040) 0.08 K/UL ABSOLUTE BASOPHILS (test cod e = 1069) 0.06 K/UL ABS IMMATURE GRANULOCYTES (t est code = 1020) 0.01 K/UL ABS NUCLEATED RBCS (test cod e = 32379) 0.00 K/UL Fortunato F AustinCOMPREHENSIVE METABOLIC [id number] 00:00:00* Test Item Value Reference Range Interpretation Comme nts GLUCOSE (test code = 2217) 115 MG/DL BUN (test code = 2208) 20 MG/DL CREATININE (test code = 2214) 0.75 MG/DL eGFR (2020 CKD-EPI) (test code = 50628) 101 ML/MIN/1.73 CALC BUN/CREAT (test code = 2235) 27 RATIO SODIUM (test code = 2231) 140 MEQ/L POTASSIUM (test code = 2228) 4.5 MEQ/L CHLORIDE (test code = 2215) 100 MEQ/L CARBON DIOXIDE (test code = 2206) 28 MEQ/L CALCIUM (test code = 2209) 9.8 MG/DL PROTEIN, TOTAL (test code = 2229) 7.4 G/DL ALBUMIN (test code = 2201) 4.8 G/DL CALC GLOBULIN (test code = 2240) 2.6 G/DL CALC A/G RATIO (test code = 2234) 1.8 RATIO BILIRUBIN, TOTAL (test code = 2207) 0.3 MG/DL ALKALINE PHOSPHATASE (test code = 2204) 67 U/L AST (test code = 2218) 23 U/L ALT (test code = 2219) 26 U/L Fortunato HernándezLIPID [id number] 00:00:00* Test Item Value Reference Range Interpretation Comme nts CHOLESTEROL (test code = 2210) 210 MG/DL TRIGLYCERIDES (test code = 2232) 431 MG/DL HDL CHOLESTEROL (test code = 2220) 60 MG/DL CALC LDL CHOL (test code = 2237) (NOTE) MG/DL RISK RATIO LDL/HDL (test cod e = 2238) (NOTE) RATIO Fortunato HernándezIRON, [id number] 00:00:00* Test Item Value Reference Range Interpretation Comme nts IRON, SERUM (test code = 2222) 47 UG/DL Fortunato HernándezCBC W/AUTO [id number] 00:00:00* Test Item Value Reference Range Interpretation Comme nts WBC (test code = 1001) 5.4 K/UL RBC (test code = 1002) 4.16 M/UL HEMOGLOBIN (test code = 1003) 11.8 G/DL HEMATOCRIT (test code = 1004) 34.9 % MCV (test code = 1005) 83.9 fL MCH (test code = 1006) 28.4 PG MCHC (test code = 1007) 33.8 G/DL RDW (test code = 1038) 16.1 % NEUTROPHILS (test code = 1008) 57.6 % LYMPHOCYTES (test code = 1010) 31.0 % MONOCYTES (test code = 1011) 8.6 % EOSINOPHILS (test code = 1012) 1.5 % BASOPHILS (test code = 1013) 1.1 % IMMATURE GRANULOCYTES (test code = 1036) 0.2 % NUCLEATED RBCS (test code = 1065) 0.0 /100WBC'S PLATELET COUNT (test code = 1015) 320 K/UL ABSOLUTE NEUTROPHILS (test c ode = 1066) 3.10 K/UL ABSOLUTE LYMPHOCYTES (test c ode = 1067) 1.67 K/UL ABSOLUTE MONOCYTES (test cod e = 1068) 0.46 K/UL ABSOLUTE EOSINOPHILS (test c ode = 1040) 0.08 K/UL ABSOLUTE BASOPHILS (test cod e = 1069) 0.06 K/UL ABS IMMATURE GRANULOCYTES (t est code = 1020) 0.01 K/UL ABS NUCLEATED RBCS (test cod e = 44106) 0.00 K/UL Fortunato HernándezCOMPREHENSIVE METABOLIC [id number] 00:00:00* Test Item Value Reference Range Interpretation Comme nts GLUCOSE (test code = 2217) 115 MG/DL BUN (test code = 2208) 20 MG/DL CREATININE (test code = 2214) 0.75 MG/DL eGFR (2020 CKD-EPI) (test code = 69290) 101 ML/MIN/1.73 CALC BUN/CREAT (test code = 2235) 27 RATIO SODIUM (test code = 2231) 140 MEQ/L POTASSIUM (test code = 2228) 4.5 MEQ/L CHLORIDE (test code = 2215) 100 MEQ/L CARBON DIOXIDE (test code = 2206) 28 MEQ/L CALCIUM (test code = 2209) 9.8 MG/DL PROTEIN, TOTAL (test code = 2229) 7.4 G/DL ALBUMIN (test code = 2201) 4.8 G/DL CALC GLOBULIN (test code = 2240) 2.6 G/DL CALC A/G RATIO (test code = 2234) 1.8 RATIO BILIRUBIN, TOTAL (test code = 2207) 0.3 MG/DL ALKALINE PHOSPHATASE (test code = 2204) 67 U/L AST (test code = 2218) 23 U/L ALT (test code = 2219) 26 U/L Fortunato HernándezLIPID [id number] 00:00:00* Test Item Value Reference Range Interpretation Comme nts CHOLESTEROL (test code = 2210) 210 MG/DL TRIGLYCERIDES (test code = 2232) 431 MG/DL HDL CHOLESTEROL (test code = 2220) 60 MG/DL CALC LDL CHOL (test code = 2237) (NOTE) MG/DL RISK RATIO LDL/HDL (test cod e = 2238) (NOTE) RATIO Fortunato Hendrickson, [id number] 00:00:00* Test Item Value Reference Range Interpretation Comme nts IRON, SERUM (test code = 2222) 47 UG/DL Fortunato HernándezCBC W/AUTO [id number] 00:00:00* Test Item Value Reference Range Interpretation Comme nts WBC (test code = 1001) 5.4 K/UL RBC (test code = 1002) 4.16 M/UL HEMOGLOBIN (test code = 1003) 11.8 G/DL HEMATOCRIT (test code = 1004) 34.9 % MCV (test code = 1005) 83.9 fL MCH (test code = 1006) 28.4 PG MCHC (test code = 1007) 33.8 G/DL RDW (test code = 1038) 16.1 % NEUTROPHILS (test code = 1008) 57.6 % LYMPHOCYTES (test code = 1010) 31.0 % MONOCYTES (test code = 1011) 8.6 % EOSINOPHILS (test code = 1012) 1.5 % BASOPHILS (test code = 1013) 1.1 % IMMATURE GRANULOCYTES (test code = 1036) 0.2 % NUCLEATED RBCS (test code = 1065) 0.0 /100WBC'S PLATELET COUNT (test code = 1015) 320 K/UL ABSOLUTE NEUTROPHILS (test c ode = 1066) 3.10 K/UL ABSOLUTE LYMPHOCYTES (test c ode = 1067) 1.67 K/UL ABSOLUTE MONOCYTES (test cod e = 1068) 0.46 K/UL ABSOLUTE EOSINOPHILS (test c ode = 1040) 0.08 K/UL ABSOLUTE BASOPHILS (test cod e = 1069) 0.06 K/UL ABS IMMATURE GRANULOCYTES (t est code = 1020) 0.01 K/UL ABS NUCLEATED RBCS (test cod e = 86344) 0.00 K/UL Fortunato HernándezVAGINAL PATHOGENS DNA [id number] 16:28:14* Test Item Value Reference Range Interpretation Comme nts JANENE SPECIES (test code = ) POSITIVE NEGATIVE A G. VAGINALIS (test code = ) POSITIVE NEGATIVE A T. VAGINALIS (test code = ) NEGATIVE NEGATIVE UNLESS OTHERWISE INDICATED, ALL TESTING PERFORMED [facility] [address] [place] [id number] [employer]OTTON DISPATCHER: FAROOQ DUBON M.D. [place] NUMBER [id number] [facility] [place]. [id number] CULTURE, [id number] 09:43:42SPECIMEN NUMBER: [id number] CULTURE, URINE SPECIMEN NUMBER: [id number] SPECIMEN COMMENT: URINE SOURCE: URINE REPORT STATUS: FINAL ISOLATE NUMBER 1: IDENTIFICATION: 06/20/2022 <10,000 CFU/ML BETA-STRE PTOCOCCUS GROUP B ADDITIONAL OBSERVATIONS: PENICILLIN AND AMPICILLIN ARE DRUGS OF CHOICE FOR TREATMENT OF B-HEMOLYTIC STREPTOCOCCAL INFECTIONS. SUSCEPTIBILITY TESTING OF PENICILLIN AND OTHER B-LACTAMS APPROVED BY THE [place] [employer] FOR TREATMENT OF B-HEMOLYTIC STREPTOCOCCAL INFECTIONS NEED NOT BE PERFORMED ROUTINELY. ADDITIONAL OBSERVATIONS: 06/20/2022 10-50,000 CFU/ML UROGENITAL PHUC PRESENT NO COMMON PATHOGENSVAGINAL PATHOGENS DNA PANEL 2022-06-20 00:00:00* Test Item Value Reference Range Interpretation Comme nts JANENE SPECIES (test code = ) POSITIVE G. VAGINALIS (test code = 61377) POSITIVE T. VAGINALIS (test code = 16217) NEGATIVE Fortunato HernándezCULTURE, [id number] 00:00:00* Test Item Value Reference Range Interpretation Comme nts CULTURE, URINE (test code = 08027) SPECIMEN NUMBER: [id number] Fortunato Moser AustinVAGINAL PATHOGENS DNA [id number] 00:00:00* Test Item Value Reference Range Interpretation Comme nts JANENE SPECIES (test code = ) POSITIVE G. VAGINALIS (test code = 02391) POSITIVE T. VAGINALIS (test code = 65382) NEGATIVE Fortunato HernándezCULTURE, [id number] 00:00:00* Test Item Value Reference Range Interpretation Comme nts CULTURE, URINE (test code = 66298) SPECIMEN NUMBER: [id number] Fortunato Moser AustinVAGINAL PATH[facility]ENS DNA [id number] 00:00:00* Test Item Value Reference Range Interpretation Comme nts JANENE SPECIES (test code = ) POSITIVE G. VAGINALIS (test code = 02952) POSITIVE T. VAGINALIS (test code = 93055) NEGATIVE Fortunato HernándezCULTURE, [id number] 00:00:00* Test Item Value Reference Range Interpretation Comme nts CULTURE, URINE (test code = 13068) SPECIMEN NUMBER: [id number] Fortunato Moser AustinVAGINAL PATHOGENS DNA [id number] 00:00:00* Test Item Value Reference Range Interpretation Comme nts JANENE SPECIES (test code = ) POSITIVE G. VAGINALIS (test code = 86495) POSITIVE T. VAGINALIS (test code = 84365) NEGATIVE Fortunato HernándezCULTURE, [id number] 00:00:00* Test Item Value Reference Range Interpretation Comme nts CULTURE, URINE (test code = 71973) SPECIMEN NUMBER: [id number] Fortunato Moser AustinVAGINAL PATHOGENS DNA [id number] 00:00:00* Test Item Value Reference Range Interpretation Comme nts JANENE SPECIES (test code = ) POSITIVE G. VAGINALIS (test code = 31996) POSITIVE T. VAGINALIS (test code = 45176) NEGATIVE Fortunato HernándezCULTURE, [id number] 00:00:00* Test Item Value Reference Range Interpretation Comme nts CULTURE, URINE (test code = 10223) SPECIMEN NUMBER: [id number] Fortunato HernándezVAGINAL PATHOGENS DNA [id number] 00:00:00* Test Item Value Reference Range Interpretation Comme nts JANENE SPECIES (test code = ) POSITIVE G. VAGINALIS (test code = 94027) POSITIVE T. VAGINALIS (test code = 75684) NEGATIVE Fortunato PrattLTDAVID, [id number] 00:00:00* Test Item Value Reference Range Interpretation Comme nts CULTURE, URINE (test code = 19426) SPECIMEN NUMBER: [id number] Fortunato Moser AustinVAGINAL PATHOGENS DNA [id number] 00:00:00* Test Item Value Reference Range Interpretation Comme nts JANENE SPECIES (test code = ) POSITIVE G. VAGINALIS (test code = 94060) POSITIVE T. VAGINALIS (test code = 54015) NEGATIVE Fortunato HernándezCULTURE, [id number] 00:00:00* Test Item Value Reference Range Interpretation Comme nts CULTURE, URINE (test code = 22509) SPECIMEN NUMBER: [id number] Fortunato Moser AustinCBC W/AUTO [id number] 00:00:00* Test Item Value Reference Range Interpretation Comme nts WBC (test code = 1001) 5.8 K/UL RBC (test code = 1002) 3.84 M/UL HEMOGLOBIN (test code = 1003) 11.0 G/DL HEMATOCRIT (test code = 1004) 33.7 % MCV (test code = 1005) 87.8 fL MCH (test code = 1006) 28.6 PG MCHC (test code = 1007) 32.6 G/DL RDW (test code = 1038) 14.0 % NEUTROPHILS (test code = 1008) 58.4 % LYMPHOCYTES (test code = 1010) 30.2 % MONOCYTES (test code = 1011) 9.5 % EOSINOPHILS (test code = 1012) 1.0 % BASOPHILS (test code = 1013) 0.9 % IMMATURE GRANULOCYTES (test code = 1036) 0.0 % NUCLEATED RBCS (test code = 1065) 0.0 /100WBC'S PLATELET COUNT (test code = 1015) 278 K/UL ABSOLUTE NEUTROPHILS (test c ode = 1066) 3.40 K/UL ABSOLUTE LYMPHOCYTES (test c ode = 1067) 1.76 K/UL ABSOLUTE MONOCYTES (test cod e = 1068) 0.55 K/UL ABSOLUTE EOSINOPHILS (test c ode = 1040) 0.06 K/UL ABSOLUTE BASOPHILS (test cod e = 1069) 0.05 K/UL ABS IMMATURE GRANULOCYTES (t est code = 1020) 0.00 K/UL ABS NUCLEATED RBCS (test cod e = 73082) 0.00 K/UL Fortunato Moser [facility] W/AUTO [id number] 00:00:00* Test Item Value Reference Range Interpretation Comme nts WBC (test code = 1001) 5.8 K/UL RBC (test code = 1002) 3.84 M/UL HEMOGLOBIN (test code = 1003) 11.0 G/DL HEMATOCRIT (test code = 1004) 33.7 % MCV (test code = 1005) 87.8 fL MCH (test code = 1006) 28.6 PG MCHC (test code = 1007) 32.6 G/DL RDW (test code = 1038) 14.0 % NEUTROPHILS (test code = 1008) 58.4 % LYMPHOCYTES (test code = 1010) 30.2 % MONOCYTES (test code = 1011) 9.5 % EOSINOPHILS (test code = 1012) 1.0 % BASOPHILS (test code = 1013) 0.9 % IMMATURE GRANULOCYTES (test code = 1036) 0.0 % NUCLEATED RBCS (test code = 1065) 0.0 /100WBC'S PLATELET COUNT (test code = 1015) 278 K/UL ABSOLUTE NEUTROPHILS (test c ode = 1066) 3.40 K/UL ABSOLUTE LYMPHOCYTES (test c ode = 1067) 1.76 K/UL ABSOLUTE MONOCYTES (test cod e = 1068) 0.55 K/UL ABSOLUTE EOSINOPHILS (test c ode = 1040) 0.06 K/UL ABSOLUTE BASOPHILS (test cod e = 1069) 0.05 K/UL ABS IMMATURE GRANULOCYTES (t est code = 1020) 0.00 K/UL ABS NUCLEATED RBCS (test cod e = 77471) 0.00 K/UL [facility]ato [facility]oser [facility] [id number] 00:00:00* Test Item Value Reference Range Interpretation Comme nts WBC (test code = 1001) 5.8 K/UL RBC (test code = 1002) 3.84 M/UL HEMOGLOBIN (test code = 1003) 11.0 G/DL HEMATOCRIT (test code = 1004) 33.7 % MCV (test code = 1005) 87.8 fL MCH (test code = 1006) 28.6 PG MCHC (test code = 1007) 32.6 G/DL RDW (test code = 1038) 14.0 % NEUTROPHILS (test code = 1008) 58.4 % LYMPHOCYTES (test code = 1010) 30.2 % MONOCYTES (test code = 1011) 9.5 % EOSINOPHILS (test code = 1012) 1.0 % BASOPHILS (test code = 1013) 0.9 % IMMATURE GRANULOCYTES (test code = 1036) 0.0 % NUCLEATED RBCS (test code = 1065) 0.0 /100WBC'S PLATELET COUNT (test code = 1015) 278 K/UL ABSOLUTE NEUTROPHILS (test c ode = 1066) 3.40 K/UL ABSOLUTE LYMPHOCYTES (test c ode = 1067) 1.76 K/UL ABSOLUTE MONOCYTES (test cod e = 1068) 0.55 K/UL ABSOLUTE EOSINOPHILS (test c ode = 1040) 0.06 K/UL ABSOLUTE BASOPHILS (test cod e = 1069) 0.05 K/UL ABS IMMATURE GRANULOCYTES (t est code = 1020) 0.00 K/UL ABS NUCLEATED RBCS (test cod e = 60134) 0.00 K/UL Fortunato HernándezCBC W/AUTO [id number] 00:00:00* Test Item Value Reference Range Interpretation Comme nts WBC (test code = 1001) 5.8 K/UL RBC (test code = 1002) 3.84 M/UL HEMOGLOBIN (test code = 1003) 11.0 G/DL HEMATOCRIT (test code = 1004) 33.7 % MCV (test code = 1005) 87.8 fL MCH (test code = 1006) 28.6 PG MCHC (test code = 1007) 32.6 G/DL RDW (test code = 1038) 14.0 % NEUTROPHILS (test code = 1008) 58.4 % LYMPHOCYTES (test code = 1010) 30.2 % MONOCYTES (test code = 1011) 9.5 % EOSINOPHILS (test code = 1012) 1.0 % BASOPHILS (test code = 1013) 0.9 % IMMATURE GRANULOCYTES (test code = 1036) 0.0 % NUCLEATED RBCS (test code = 1065) 0.0 /100WBC'S PLATELET COUNT (test code = 1015) 278 K/UL ABSOLUTE NEUTROPHILS (test c ode = 1066) 3.40 K/UL ABSOLUTE LYMPHOCYTES (test c ode = 1067) 1.76 K/UL ABSOLUTE MONOCYTES (test cod e = 1068) 0.55 K/UL ABSOLUTE EOSINOPHILS (test c ode = 1040) 0.06 K/UL ABSOLUTE BASOPHILS (test cod e = 1069) 0.05 K/UL ABS IMMATURE GRANULOCYTES (t est code = 1020) 0.00 K/UL ABS NUCLEATED RBCS (test cod e = 75526) 0.00 K/UL Fortunato HernándezCBC W/AUTO [id number] 00:00:00* Test Item Value Reference Range Interpretation Comme nts WBC (test code = 1001) 5.8 K/UL RBC (test code = 1002) 3.84 M/UL HEMOGLOBIN (test code = 1003) 11.0 G/DL HEMATOCRIT (test code = 1004) 33.7 % MCV (test code = 1005) 87.8 fL MCH (test code = 1006) 28.6 PG MCHC (test code = 1007) 32.6 G/DL RDW (test code = 1038) 14.0 % NEUTROPHILS (test code = 1008) 58.4 % LYMPHOCYTES (test code = 1010) 30.2 % MONOCYTES (test code = 1011) 9.5 % EOSINOPHILS (test code = 1012) 1.0 % BASOPHILS (test code = 1013) 0.9 % IMMATURE GRANULOCYTES (test code = 1036) 0.0 % NUCLEATED RBCS (test code = 1065) 0.0 /100WBC'S PLATELET COUNT (test code = 1015) 278 K/UL ABSOLUTE NEUTROPHILS (test c ode = 1066) 3.40 K/UL ABSOLUTE LYMPHOCYTES (test c ode = 1067) 1.76 K/UL ABSOLUTE MONOCYTES (test cod e = 1068) 0.55 K/UL ABSOLUTE EOSINOPHILS (test c ode = 1040) 0.06 K/UL ABSOLUTE BASOPHILS (test cod e = 1069) 0.05 K/UL ABS IMMATURE GRANULOCYTES (t est code = 1020) 0.00 K/UL ABS NUCLEATED RBCS (test cod e = 86218) 0.00 K/UL [facility] [id number] 00:00:00* Test Item Value Reference Range Interpretation Comme nts WBC (test code = 1001) 5.8 K/UL RBC (test code = 1002) 3.84 M/UL HEMOGLOBIN (test code = 1003) 11.0 G/DL HEMATOCRIT (test code = 1004) 33.7 % MCV (test code = 1005) 87.8 fL MCH (test code = 1006) 28.6 PG MCHC (test code = 1007) 32.6 G/DL RDW (test code = 1038) 14.0 % NEUTROPHILS (test code = 1008) 58.4 % LYMPHOCYTES (test code = 1010) 30.2 % MONOCYTES (test code = 1011) 9.5 % EOSINOPHILS (test code = 1012) 1.0 % BASOPHILS (test code = 1013) 0.9 % IMMATURE GRANULOCYTES (test code = 1036) 0.0 % NUCLEATED RBCS (test code = 1065) 0.0 /100WBC'S PLATELET COUNT (test code = 1015) 278 K/UL ABSOLUTE NEUTROPHILS (test c ode = 1066) 3.40 K/UL ABSOLUTE LYMPHOCYTES (test c ode = 1067) 1.76 K/UL ABSOLUTE MONOCYTES (test cod e = 1068) 0.55 K/UL ABSOLUTE EOSINOPHILS (test c ode = 1040) 0.06 K/UL ABSOLUTE BASOPHILS (test cod e = 1069) 0.05 K/UL ABS IMMATURE GRANULOCYTES (t est code = 1020) 0.00 K/UL ABS NUCLEATED RBCS (test cod e = 44102) 0.00 K/UL Fortunato HernándezCBC W/AUTO [id number] 00:00:00* Test Item Value Reference Range Interpretation Comme nts WBC (test code = 1001) 5.8 K/UL RBC (test code = 1002) 3.84 M/UL HEMOGLOBIN (test code = 1003) 11.0 G/DL HEMATOCRIT (test code = 1004) 33.7 % MCV (test code = 1005) 87.8 fL MCH (test code = 1006) 28.6 PG MCHC (test code = 1007) 32.6 G/DL RDW (test code = 1038) 14.0 % NEUTROPHILS (test code = 1008) 58.4 % LYMPHOCYTES (test code = 1010) 30.2 % MONOCYTES (test code = 1011) 9.5 % EOSINOPHILS (test code = 1012) 1.0 % BASOPHILS (test code = 1013) 0.9 % IMMATURE GRANULOCYTES (test code = 1036) 0.0 % NUCLEATED RBCS (test code = 1065) 0.0 /100WBC'S PLATELET COUNT (test code = 1015) 278 K/UL ABSOLUTE NEUTROPHILS (test c ode = 1066) 3.40 K/UL ABSOLUTE LYMPHOCYTES (test c ode = 1067) 1.76 K/UL ABSOLUTE MONOCYTES (test cod e = 1068) 0.55 K/UL ABSOLUTE EOSINOPHILS (test c ode = 1040) 0.06 K/UL ABSOLUTE BASOPHILS (test cod e = 1069) 0.05 K/UL ABS IMMATURE GRANULOCYTES (t est code = 1020) 0.00 K/UL ABS NUCLEATED RBCS (test cod e = 42852) 0.00 K/UL Fortunato ChoiN, [id number] 06:42:55* Test Item Value Reference Range Interpretation Comme nts IRON, SERUM (test code = 2222) 198 UG/DL 37-145 H UNLESS OTHERWISE INDICATED, ALL TESTING PERFORMED [facility] [address] [place] [id number] COTTON DISPATCHER: FAROOQ DUBON M.D. CLIA NUMBER [id number] [facility] [place]. [id number] IRON, [id number] 00:00:00* Test Item Value Reference Range Interpretation Comme nts IRON, SERUM (test code = 2222) 198 UG/DL Fortunato HernándezIRON, [id number] 00:00:00* Test Item Value Reference Range Interpretation Comme nts IRON, SERUM (test code = 2222) 198 UG/DL Fortunato HernándezIRON, [id number] 00:00:00* Test Item Value Reference Range Interpretation Comme nts IRON, SERUM (test code = 2222) 198 UG/DL Fortunato HernándezIRON, [id number] 00:00:00* Test Item Value Reference Range Interpretation Comme nts IRON, SERUM (test code = 2222) 198 UG/DL Fortunato HernándezIRON, [id number] 00:00:00* Test Item Value Reference Range Interpretation Comme nts IRON, SERUM (test code = 2222) 198 UG/DL Fortunato HernándezIRON, [id number] 00:00:00* Test Item Value Reference Range Interpretation Comme nts IRON, SERUM (test code = 2222) 198 UG/DL Fortunato HernándezIRON, [id number] 00:00:00* Test Item Value Reference Range Interpretation Comme nts IRON, SERUM (test code = 2222) 198 UG/DL Fortunato HernándezLIPID [id number] 06:56:09* Test Item Value Reference Range Interpretation Comme nts CHOLESTEROL (test code = 2210) 157 MG/DL <200 TRIGLYCERIDES (test code = 2232) 252 MG/DL <150 H HDL CHOLESTEROL (test code = 2220) 61 MG/DL >39 CALC LDL CHOL (test code = 2237) 66 MG/DL <100 NOTE: CALCULATED LDL IS BASED ON JEFFY-CHUA METHOD WHICHINCLUDES ADJUSTABLE TRIGLYCERIDE:VLDL CHOLESTEROL RATIO.THIS FACTOR VARIES BY MEASURED TRIGLYCERIDE AND NON-HDLCHOLESTEROL CONCENTRATIONS WITH INCREASED CALCULATED LDL SEENIN HIGHER TRIGLYCERIDE OR LOWER NON-HDL SPECIMENS. FOR MOREINFORMATION, SEE CLIENT ANNOUNCEMENT AT [email or web address] RISK RATIO LDL/HDL (test code = 2238) 1.08 RATIO <3.22 UNLESS OTHERW ISE INDICATED, ALL TESTING PERFORMED [facility] [employer] [address] [place] [address] COTTON DISPATCHER: FAROOQ DUBON M.D. CLIA NUMBER [id number] [facility] [place]. [id number] CBC W/AUTO DIFF WITH [id number] 05:49:59* Test Item Value Reference Range Interpretation Comme nts WBC (test code = 1001) 4.8 K/UL 3.5-11.0 RBC (test code = 1002) 4.39 M/UL 3.80-5.40 HEMOGLOBIN (test code = 1003) 10.9 G/DL 11.5-15.5 L HEMATOCRIT (test code = 1004) 35.0 % 34.0-45.0 MCV (test code = 1005) 79.7 fL 80.0-99.0 L MCH (test code = 1006) 24.8 PG 25.0-33.0 L MCHC (test code = 1007) 31.1 G/DL 31.0-36.0 RDW (test code = 1038) 22.4 % 11.5-15.0 H NEUTROPHILS (test code = 1008) 63.1 % LYMPHOCYTES (test code = 1010) 25.5 % MONOCYTES (test code = 1011) 9.4 % EOSINOPHILS (test code = 1012) 0.8 % BASOPHILS (test code = 1013) 1.0 % IMMATURE GRANULOCYTES (test code = 1036) 0.2 % NUCLEATED RBCS (test code = 1065) 0.0 /100 WBC'S See_Comment [Automated messa ge] The system which generated this result transmitted reference range: 0.0. The reference range was not used to interpret this result as normal/abnormal. PLATELET COUNT (test code = 1015) 276 K/UL 130-400 ABSOLUTE NEUTROPHILS (test code = 1066) 3.02 K/UL 1.50-7.50 ABSOLUTE LYMPHOCYTES (test code = 1067) 1.22 K/UL 1.00-4.00 ABSOLUTE MONOCYTES (test code = 1068) 0.45 K/UL 0.20-1.00 ABSOLUTE EOSINOPHILS (test code = 1040) 0.04 K/UL 0.00-0.50 ABSOLUTE BASOPHILS (test code = 1069) 0.05 K/UL 0.00-0.20 ABS IMMATURE GRANULOCYTES (test code = 1020) 0.01 K/UL 0.00-0.10 ABS NUCLEATED RBCS (test code = 04760) 0.00 K/UL 0.00-0.11 CBC W/AUTO [id number] 00:00:00* Test Item Value Reference Range Interpretation Comme nts WBC (test code = 1001) 4.8 K/UL RBC (test code = 1002) 4.39 M/UL HEMOGLOBIN (test code = 1003) 10.9 G/DL HEMATOCRIT (test code = 1004) 35.0 % MCV (test code = 1005) 79.7 fL MCH (test code = 1006) 24.8 PG MCHC (test code = 1007) 31.1 G/DL RDW (test code = 1038) 22.4 % NEUTROPHILS (test code = 1008) 63.1 % LYMPHOCYTES (test code = 1010) 25.5 % MONOCYTES (test code = 1011) 9.4 % EOSINOPHILS (test code = 1012) 0.8 % BASOPHILS (test code = 1013) 1.0 % IMMATURE GRANULOCYTES (test code = 1036) 0.2 % NUCLEATED RBCS (test code = 1065) 0.0 /100WBC'S PLATELET COUNT (test code = 1015) 276 K/UL ABSOLUTE NEUTROPHILS (test c ode = 1066) 3.02 K/UL ABSOLUTE LYMPHOCYTES (test c ode = 1067) 1.22 K/UL ABSOLUTE MONOCYTES (test cod e = 1068) 0.45 K/UL ABSOLUTE EOSINOPHILS (test c ode = 1040) 0.04 K/UL ABSOLUTE BASOPHILS (test cod e = 1069) 0.05 K/UL ABS IMMATURE GRANULOCYTES (t est code = 1020) 0.01 K/UL ABS NUCLEATED RBCS (test cod e = 31715) 0.00 K/UL Fortunato F AustinLIPID [id number] 00:00:00* Test Item Value Reference Range Interpretation Comme nts CHOLESTEROL (test code = 2210) 157 MG/DL TRIGLYCERIDES (test code = 2232) 252 MG/DL HDL CHOLESTEROL (test code = 2220) 61 MG/DL CALC LDL CHOL (test code = 2237) 66 MG/DL RISK RATIO LDL/HDL (test cod e = 2238) 1.08 RATIO Fortunato HernándezCBC W/AUTO [id number] 00:00:00* Test Item Value Reference Range Interpretation Comme nts WBC (test code = 1001) 4.8 K/UL RBC (test code = 1002) 4.39 M/UL HEMOGLOBIN (test code = 1003) 10.9 G/DL HEMATOCRIT (test code = 1004) 35.0 % MCV (test code = 1005) 79.7 fL MCH (test code = 1006) 24.8 PG MCHC (test code = 1007) 31.1 G/DL RDW (test code = 1038) 22.4 % NEUTROPHILS (test code = 1008) 63.1 % LYMPHOCYTES (test code = 1010) 25.5 % MONOCYTES (test code = 1011) 9.4 % EOSINOPHILS (test code = 1012) 0.8 % BASOPHILS (test code = 1013) 1.0 % IMMATURE GRANULOCYTES (test code = 1036) 0.2 % NUCLEATED RBCS (test code = 1065) 0.0 /100WBC'S PLATELET COUNT (test code = 1015) 276 K/UL ABSOLUTE NEUTROPHILS (test c ode = 1066) 3.02 K/UL ABSOLUTE LYMPHOCYTES (test c ode = 1067) 1.22 K/UL ABSOLUTE MONOCYTES (test cod e = 1068) 0.45 K/UL ABSOLUTE EOSINOPHILS (test c ode = 1040) 0.04 K/UL ABSOLUTE BASOPHILS (test cod e = 1069) 0.05 K/UL ABS IMMATURE GRANULOCYTES (t est code = 1020) 0.01 K/UL ABS NUCLEATED RBCS (test cod e = 49638) 0.00 K/UL Fortunato HernándezLIPID [id number] 00:00:00* Test Item Value Reference Range Interpretation Comme nts CHOLESTEROL (test code = 2210) 157 MG/DL TRIGLYCERIDES (test code = 2232) 252 MG/DL HDL CHOLESTEROL (test code = 2220) 61 MG/DL CALC LDL CHOL (test code = 2237) 66 MG/DL RISK RATIO LDL/HDL (test cod e = 2238) 1.08 RATIO Forutnato HernándezCBC W/AUTO [id number] 00:00:00* Test Item Value Reference Range Interpretation Comme nts WBC (test code = 1001) 4.8 K/UL RBC (test code = 1002) 4.39 M/UL HEMOGLOBIN (test code = 1003) 10.9 G/DL HEMATOCRIT (test code = 1004) 35.0 % MCV (test code = 1005) 79.7 fL MCH (test code = 1006) 24.8 PG MCHC (test code = 1007) 31.1 G/DL RDW (test code = 1038) 22.4 % NEUTROPHILS (test code = 1008) 63.1 % LYMPHOCYTES (test code = 1010) 25.5 % MONOCYTES (test code = 1011) 9.4 % EOSINOPHILS (test code = 1012) 0.8 % BASOPHILS (test code = 1013) 1.0 % IMMATURE GRANULOCYTES (test code = 1036) 0.2 % NUCLEATED RBCS (test code = 1065) 0.0 /100WBC'S PLATELET COUNT (test code = 1015) 276 K/UL ABSOLUTE NEUTROPHILS (test c ode = 1066) 3.02 K/UL ABSOLUTE LYMPHOCYTES (test c ode = 1067) 1.22 K/UL ABSOLUTE MONOCYTES (test cod e = 1068) 0.45 K/UL ABSOLUTE EOSINOPHILS (test c ode = 1040) 0.04 K/UL ABSOLUTE BASOPHILS (test cod e = 1069) 0.05 K/UL ABS IMMATURE GRANULOCYTES (t est code = 1020) 0.01 K/UL ABS NUCLEATED RBCS (test cod e = 87598) 0.00 K/UL Fortunato HernándezLIPID [id number] 00:00:00* Test Item Value Reference Range Interpretation Comme nts CHOLESTEROL (test code = 2210) 157 MG/DL TRIGLYCERIDES (test code = 2232) 252 MG/DL HDL CHOLESTEROL (test code = 2220) 61 MG/DL CALC LDL CHOL (test code = 2237) 66 MG/DL RISK RATIO LDL/HDL (test cod e = 2238) 1.08 RATIO Fortunato HernándezCBC W/AUTO [id number] 00:00:00* Test Item Value Reference Range Interpretation Comme nts WBC (test code = 1001) 4.8 K/UL RBC (test code = 1002) 4.39 M/UL HEMOGLOBIN (test code = 1003) 10.9 G/DL HEMATOCRIT (test code = 1004) 35.0 % MCV (test code = 1005) 79.7 fL MCH (test code = 1006) 24.8 PG MCHC (test code = 1007) 31.1 G/DL RDW (test code = 1038) 22.4 % NEUTROPHILS (test code = 1008) 63.1 % LYMPHOCYTES (test code = 1010) 25.5 % MONOCYTES (test code = 1011) 9.4 % EOSINOPHILS (test code = 1012) 0.8 % BASOPHILS (test code = 1013) 1.0 % IMMATURE GRANULOCYTES (test code = 1036) 0.2 % NUCLEATED RBCS (test code = 1065) 0.0 /100WBC'S PLATELET COUNT (test code = 1015) 276 K/UL ABSOLUTE NEUTROPHILS (test c ode = 1066) 3.02 K/UL ABSOLUTE LYMPHOCYTES (test c ode = 1067) 1.22 K/UL ABSOLUTE MONOCYTES (test cod e = 1068) 0.45 K/UL ABSOLUTE EOSINOPHILS (test c ode = 1040) 0.04 K/UL ABSOLUTE BASOPHILS (test cod e = 1069) 0.05 K/UL ABS IMMATURE GRANULOCYTES (t est code = 1020) 0.01 K/UL ABS NUCLEATED RBCS (test cod e = 71746) 0.00 K/UL Fortunato HernándezLIPID [id number] 00:00:00* Test Item Value Reference Range Interpretation Comme nts CHOLESTEROL (test code = 2210) 157 MG/DL TRIGLYCERIDES (test code = 2232) 252 MG/DL HDL CHOLESTEROL (test code = 2220) 61 MG/DL CALC LDL CHOL (test code = 2237) 66 MG/DL RISK RATIO LDL/HDL (test cod e = 2238) 1.08 RATIO Fortunato Moser EdgarCBC W/AUTO [id number] 00:00:00* Test Item Value Reference Range Interpretation Comme nts WBC (test code = 1001) 4.8 K/UL RBC (test code = 1002) 4.39 M/UL HEMOGLOBIN (test code = 1003) 10.9 G/DL HEMATOCRIT (test code = 1004) 35.0 % MCV (test code = 1005) 79.7 fL MCH (test code = 1006) 24.8 PG MCHC (test code = 1007) 31.1 G/DL RDW (test code = 1038) 22.4 % NEUTROPHILS (test code = 1008) 63.1 % LYMPHOCYTES (test code = 1010) 25.5 % MONOCYTES (test code = 1011) 9.4 % EOSINOPHILS (test code = 1012) 0.8 % BASOPHILS (test code = 1013) 1.0 % IMMATURE GRANULOCYTES (test code = 1036) 0.2 % NUCLEATED RBCS (test code = 1065) 0.0 /100WBC'S PLATELET COUNT (test code = 1015) 276 K/UL ABSOLUTE NEUTROPHILS (test c ode = 1066) 3.02 K/UL ABSOLUTE LYMPHOCYTES (test c ode = 1067) 1.22 K/UL ABSOLUTE MONOCYTES (test cod e = 1068) 0.45 K/UL ABSOLUTE EOSINOPHILS (test c ode = 1040) 0.04 K/UL ABSOLUTE BASOPHILS (test cod e = 1069) 0.05 K/UL ABS IMMATURE GRANULOCYTES (t est code = 1020) 0.01 K/UL ABS NUCLEATED RBCS (test cod e = 06535) 0.00 K/UL Fortunato HernándezLIPID [id number] 00:00:00* Test Item Value Reference Range Interpretation Comme nts CHOLESTEROL (test code = 2210) 157 MG/DL TRIGLYCERIDES (test code = 2232) 252 MG/DL HDL CHOLESTEROL (test code = 2220) 61 MG/DL CALC LDL CHOL (test code = 2237) 66 MG/DL RISK RATIO LDL/HDL (test cod e = 2238) 1.08 RATIO Fortunato Moser EdgarCBC W/AUTO [id number] 00:00:00* Test Item Value Reference Range Interpretation Comme nts WBC (test code = 1001) 4.8 K/UL RBC (test code = 1002) 4.39 M/UL HEMOGLOBIN (test code = 1003) 10.9 G/DL HEMATOCRIT (test code = 1004) 35.0 % MCV (test code = 1005) 79.7 fL MCH (test code = 1006) 24.8 PG MCHC (test code = 1007) 31.1 G/DL RDW (test code = 1038) 22.4 % NEUTROPHILS (test code = 1008) 63.1 % LYMPHOCYTES (test code = 1010) 25.5 % MONOCYTES (test code = 1011) 9.4 % EOSINOPHILS (test code = 1012) 0.8 % BASOPHILS (test code = 1013) 1.0 % IMMATURE GRANULOCYTES (test code = 1036) 0.2 % NUCLEATED RBCS (test code = 1065) 0.0 /100WBC'S PLATELET COUNT (test code = 1015) 276 K/UL ABSOLUTE NEUTROPHILS (test c ode = 1066) 3.02 K/UL ABSOLUTE LYMPHOCYTES (test c ode = 1067) 1.22 K/UL ABSOLUTE MONOCYTES (test cod e = 1068) 0.45 K/UL ABSOLUTE EOSINOPHILS (test c ode = 1040) 0.04 K/UL ABSOLUTE BASOPHILS (test cod e = 1069) 0.05 K/UL ABS IMMATURE GRANULOCYTES (t est code = 1020) 0.01 K/UL ABS NUCLEATED RBCS (test cod e = 87675) 0.00 K/UL Fortunato HernándezLIPID [id number] 00:00:00* Test Item Value Reference Range Interpretation Comme nts CHOLESTEROL (test code = 2210) 157 MG/DL TRIGLYCERIDES (test code = 2232) 252 MG/DL HDL CHOLESTEROL (test code = 2220) 61 MG/DL CALC LDL CHOL (test code = 2237) 66 MG/DL RISK RATIO LDL/HDL (test cod e = 2238) 1.08 RATIO Fortunato HernándezCBC W/AUTO [id number] 00:00:00* Test Item Value Reference Range Interpretation Comme nts WBC (test code = 1001) 4.8 K/UL RBC (test code = 1002) 4.39 M/UL HEMOGLOBIN (test code = 1003) 10.9 G/DL HEMATOCRIT (test code = 1004) 35.0 % MCV (test code = 1005) 79.7 fL MCH (test code = 1006) 24.8 PG MCHC (test code = 1007) 31.1 G/DL RDW (test code = 1038) 22.4 % NEUTROPHILS (test code = 1008) 63.1 % LYMPHOCYTES (test code = 1010) 25.5 % MONOCYTES (test code = 1011) 9.4 % EOSINOPHILS (test code = 1012) 0.8 % BASOPHILS (test code = 1013) 1.0 % IMMATURE GRANULOCYTES (test code = 1036) 0.2 % NUCLEATED RBCS (test code = 1065) 0.0 /100WBC'S PLATELET COUNT (test code = 1015) 276 K/UL ABSOLUTE NEUTROPHILS (test c ode = 1066) 3.02 K/UL ABSOLUTE LYMPHOCYTES (test c ode = 1067) 1.22 K/UL ABSOLUTE MONOCYTES (test cod e = 1068) 0.45 K/UL ABSOLUTE EOSINOPHILS (test c ode = 1040) 0.04 K/UL ABSOLUTE BASOPHILS (test cod e = 1069) 0.05 K/UL ABS IMMATURE GRANULOCYTES (t est code = 1020) 0.01 K/UL ABS NUCLEATED RBCS (test cod e = 62546) 0.00 K/UL Fortunato HernándezLIPID [id number] 00:00:00* Test Item Value Reference Range Interpretation Comme nts CHOLESTEROL (test code = 2210) 157 MG/DL TRIGLYCERIDES (test code = 2232) 252 MG/DL HDL CHOLESTEROL (test code = 2220) 61 MG/DL CALC LDL CHOL (test code = 2237) 66 MG/DL RISK RATIO LDL/HDL (test cod e = 2238) 1.08 RATIO Fortunato HernándezPAP TEST, THINPREP, [id number] 23:01:42* Test Item Value Reference Range Interpretation Comme nts SOURCE: (test code = 8001) Cervical SLIDES: (test code = 8011) 1 LMP: (test code = 8021) 09/30/2021 SPECIMEN ADEQUACY: (test code = 76790) (NOTE) Satisfactory for evaluation. Endocervical cells/transformation zone component not identified. INTERPRETATION: (test code = 91186) NILM/NO EPITH. ABNORMALITY;SEE BELOW --- - NEGATIVE FOR INTRAEPITHELIAL LESION OR MALIGNANCY (NILM) ---- OTHER COMMENTS: (test code = 8081) (NOTE) Background mater ial consistent with lubricant is present, whichinterferes with specimen processing. CURATORIAL SPECIALIST : (test code = 8101) SULAIMAN Raygoza(ASCP ) IAC LOCATION: (test code = 96846) (NOTE) Specimens proces sed and interpreted at [facility], [address] [place] [address], , CLIA: [id number] CPT: (test code = 8140) (NOTE) 23889 UNLESS OTH ERWISE INDICATED, COMPUTER AIDED AND CURATORIAL SPECIALIST SCREENING PERFORMED. The Pap test is a screening test with an inherent, but low probability of error. Your patient should be reminded to consult you immediately if she experiences any suspicious signs or symptoms, regardless of her Pap test result. An alternate report format containing images or consolidated prior Pap history is available as applicable. UNLESS OTHERWISE INDICATED, ALL TESTING PERFORMED [facility] [address] [place] [address] COTTON DISPATCHER: FAROOQ DUBON M.D. CLIA NUMBER [id number] [facility] [place]. [id number] CT/NG, TMA, [id number] 22:56:05* Test Item Value Reference Range Interpretation Comme nts GONORRHEA, TMA (test code = 38102) NEGATIVE NEGATIVE Assay methodolog y is nucleic acid amplification by low heel builder mediated amplification (TMA) utilizing the Aptima Combo 2 Assay. CHLAMYDIA, TMA (test code = 09015) NEGATIVE NEGATIVE Assay methodolog y is nucleic acid amplification by low heel builder mediated amplification (TMA) utilizing the Aptima Combo 2 Assay. VAGINAL PATHOGENS DNA [id number] 13:32:16* Test Item Value Reference Range Interpretation Comme nts JANENE SPECIES (test code = 44740) NEGATIVE NEGATIVE G. VAGINALIS (test code = ) POSITIVE NEGATIVE A T. VAGINALIS (test code = ) NEGATIVE NEGATIVE CBC W/AUTO DIFF WITH [id number] 04:08:11* Test Item Value Reference Range Interpretation Comme nts WBC (test code = 1001) 2.8 K/UL 3.5-11.0 L RBC (test code = 1002) 3.79 M/UL 3.80-5.40 L HEMOGLOBIN (test code = 1003) 8.4 G/DL 11.5-15.5 L HEMATOCRIT (test code = 1004) 27.8 % 34.0-45.0 L MCV (test code = 1005) 73.4 fL 80.0-99.0 L MCH (test code = 1006) 22.2 PG 25.0-33.0 L MCHC (test code = 1007) 30.2 G/DL 31.0-36.0 L RDW (test code = 1038) 18.0 % 11.5-15.0 H NEUTROPHILS (test code = 1008) 45.3 % LYMPHOCYTES (test code = 1010) 37.0 % MONOCYTES (test code = 1011) 14.1 % EOSINOPHILS (test code = 1012) 1.8 % BASOPHILS (test code = 1013) 1.8 % IMMATURE GRANULOCYTES (test code = 1036) 0.0 % NUCLEATED RBCS (test code = 1065) 0.0 /100 WBC'S See_Comment [Automated message] The system which generated this result transmitted reference range: 0.0. The reference range was not used to interpret this result as normal/abnormal. PLATELET COUNT (test code = 1015) 266 K/UL 130-400 ABSOLUTE NEUTROPHILS (test code = 1066) 1.29 K/UL 1.50-7.50 L ABSOLUTE LYMPHOCYTES (test code = 1067) 1.05 K/UL 1.00-4.00 ABSOLUTE MONOCYTES (test code = 1068) 0.40 K/UL 0.20-1.00 ABSOLUTE EOSINOPHILS (test code = 1040) 0.05 K/UL 0.00-0.50 ABSOLUTE BASOPHILS (test code = 1069) 0.05 K/UL 0.00-0.20 ABS IMMATURE GRANULOCYTES (test code = 1020) 0.00 K/UL 0.00-0.10 ABS NUCLEATED RBCS (test code = 38864) 0.00 K/UL 0.00-0.11 UNLESS OTHER KIM INDICATED, ALL TESTING PERFORMED [facility] [address] [place] [address] COTTON DISPATCHER: FAROOQ DUBON M.D. CLIA NUMBER [id number] [place]. [id number] RPR REFLEX TO T. PALLIDUM - [id number] 03:20:46* Test Item Value Reference Range Interpretation Comme nts RPR (test code = 93611) NON-REACTIVE NON-REACTIVE RPR TITER (test code = 3500) NOT INDIC. TITER NOT INDIC. HIV 1/2 4TH GEN, RFLX [id number] 03:09:58* Test Item Value Reference Range Interpretation Comme nts HIV 1/2 4TH GEN, RFLX CONF ( test code = 3514) NON-REACTIVE NON-REACTIVE HEPATITIS PANEL, [id number] 03:09:58* Test Item Value Reference Range Interpretation Comme nts HEPATITIS A IgM (test code = 07415) NON-REACTIVE NON-REACTIVE HEPATITIS B CORE IgM (test code = 4644) NON-REACTIVE NON-REACTIVE HEPATITIS B SURF AG (test code = 2739) NON-REACTIVE NON-REACTIVE HEPATITIS C ANTIBODY (test code = 4675) NON-REACTIVE NON-REACTIVE INTERPRETATION HEPATITIS A: (test code = 2552) (NOTE) Hepatitis A serology shows no evidence of acute hepatitis A. INTERPRETATION HEPATITIS B: (test code = 07566) (NOTE) Hepatitis B serology shows no evidence of acute hepatitis B andno indication of exposure to hepatitis B virus in the previous steph eight months. INTERPRETATION HEPATITIS C: (test code = 84758) (NOTE) Hepatitis C serology shows no evidence of exposure to hepatitisC virus at this time. It can take up to 12 months after exposure tothe hepatitis C virus for antibodies to become detectable in the blood in certain patients. GC AND CHLAMYDIA AMPLIFIED, [id number] 00:00:00* Test Item Value Reference Range Interpretation Comme nts GONORRHEA, TMA (test code = 23596) NEGATIVE CHLAMYDIA, TMA (test code = 74881) NEGATIVE Fortunato F AustinHIV AB/AG COMBO RFLX [id number] 00:00:00* Test Item Value Reference Range Interpretation Comme nts HIV 1/2 4TH GEN, RFLX CONF ( test code = 3514) NON-REACTIVE Fortunato F AustinPAP TEST, THINPREP, [id number] 00:00:00* Test Item Value Reference Range Interpretation Comme nts SOURCE: (test code = 8001) Cervical SLIDES: (test code = 8011) 1 LMP: (test code = 8021) 09/30/2021 SPECIMEN ADEQUACY: (test code = 72031) (NOTE) INTERPRETATION: (test code = 10008) NILM/NO EPITH. ABNORMALITY;SEE BELOW OTHER COMMENTS: (test code = 8081) (NOTE) CURATORIAL SPECIALIST: (test code = 8101) SULAIMAN Raygoza(ASCP) IAC LOCATION: (test code = 75737) (NOTE) CPT: (test code = 8140) (NOTE) Fortunato HernándezACUTE HEPATITIS [id number] 00:00:00* Test Item Value Reference Range Interpretation Comme nts HEPATITIS A IgM (test code = 66360) NON-REACTIVE HEPATITIS B CORE IgM (test c ode = 4644) NON-REACTIVE HEPATITIS B SURF AG (test co de = 2739) NON-REACTIVE HEPATITIS C ANTIBODY (test c ode = 4675) NON-REACTIVE INTERPRETATION HEPATITIS A: (test code = 2552) (NOTE) INTERPRETATION HEPATITIS B: (test code = 58290) (NOTE) INTERPRETATION HEPATITIS C: (test code = 73671) (NOTE) Fortunato HernándezRPR REFLEX TO [id number] 00:00:00* Test Item Value Reference Range Interpretation Comme nts RPR (test code = 49738) NON-REACTIVE RPR TITER (test code = 3500) NOT INDIC. TITER Fortunato HernándezCBC W/AUTO [id number] 00:00:00* Test Item Value Reference Range Interpretation Comme nts WBC (test code = 1001) 2.8 K/UL RBC (test code = 1002) 3.79 M/UL HEMOGLOBIN (test code = 1003) 8.4 G/DL HEMATOCRIT (test code = 1004) 27.8 % MCV (test code = 1005) 73.4 fL MCH (test code = 1006) 22.2 PG MCHC (test code = 1007) 30.2 G/DL RDW (test code = 1038) 18.0 % NEUTROPHILS (test code = 1008) 45.3 % LYMPHOCYTES (test code = 1010) 37.0 % MONOCYTES (test code = 1011) 14.1 % EOSINOPHILS (test code = 1012) 1.8 % BASOPHILS (test code = 1013) 1.8 % IMMATURE GRANULOCYTES (test code = 1036) 0.0 % NUCLEATED RBCS (test code = 1065) 0.0 /100WBC'S PLATELET COUNT (test code = 1015) 266 K/UL ABSOLUTE NEUTROPHILS (test c ode = 1066) 1.29 K/UL ABSOLUTE LYMPHOCYTES (test c ode = 1067) 1.05 K/UL ABSOLUTE MONOCYTES (test cod e = 1068) 0.40 K/UL ABSOLUTE EOSINOPHILS (test c ode = 1040) 0.05 K/UL ABSOLUTE BASOPHILS (test cod e = 1069) 0.05 K/UL ABS IMMATURE GRANULOCYTES (t est code = 1020) 0.00 K/UL ABS NUCLEATED RBCS (test cod e = 15807) 0.00 K/UL Fortunato HernándezVAGINAL PATHOGENS DNA [id number] 00:00:00* Test Item Value Reference Range Interpretation Comme nts JANENE SPECIES (test code = 79745) NEGATIVE G. VAGINALIS (test code = 35718) POSITIVE T. VAGINALIS (test code = 65536) NEGATIVE Fortunato HernándezGC AND CHLAMYDIA AMPLIFIED, [id number] 00:00:00* Test Item Value Reference Range Interpretation Comme nts GONORRHEA, TMA (test code = 34228) NEGATIVE CHLAMYDIA, TMA (test code = 87790) NEGATIVE Fortunato HernándezHIV AB/AG COMBO RFLX [id number] 00:00:00* Test Item Value Reference Range Interpretation Comme nts HIV 1/2 4TH GEN, RFLX CONF ( test code = 3514) NON-REACTIVE Fortunato HernándezPAP TEST, THINPREP, [id number] 00:00:00* Test Item Value Reference Range Interpretation Comme nts SOURCE: (test code = 8001) Cervical SLIDES: (test code = 8011) 1 LMP: (test code = 8021) 09/30/2021 SPECIMEN ADEQUACY: (test code = 15154) (NOTE) INTERPRETATION: (test code = 01343) NILM/NO EPITH. ABNORMALITY;SEE BELOW OTHER COMMENTS: (test code = 8081) (NOTE) CURATORIAL SPECIALIST: (test code = 8101) SULAIMAN Raygoza(ASCP) IAC LOCATION: (test code = 69856) (NOTE) CPT: (test code = 8140) (NOTE) Fortunato HernándezACUTE HEPATITIS [id number] 00:00:00* Test Item Value Reference Range Interpretation Comme nts HEPATITIS A IgM (test code = 37022) NON-REACTIVE HEPATITIS B CORE IgM (test c ode = 4644) NON-REACTIVE HEPATITIS B SURF AG (test co de = 2739) NON-REACTIVE HEPATITIS C ANTIBODY (test c ode = 4638) NON-REACTIVE INTERPRETATION HEPATITIS A: (test code = 2552) (NOTE) INTERPRETATION HEPATITIS B: (test code = 75284) (NOTE) INTERPRETATION HEPATITIS C: (test code = 29621) (NOTE) Fortunato Moser EdgarRPR REFLEX TO [id number] 00:00:00* Test Item Value Reference Range Interpretation Comme nts RPR (test code = 26843) NON-REACTIVE RPR TITER (test code = 3500) NOT INDIC. TITER Fortunato Moser EdgarCBC W/AUTO [id number] 00:00:00* Test Item Value Reference Range Interpretation Comme nts WBC (test code = 1001) 2.8 K/UL RBC (test code = 1002) 3.79 M/UL HEMOGLOBIN (test code = 1003) 8.4 G/DL HEMATOCRIT (test code = 1004) 27.8 % MCV (test code = 1005) 73.4 fL MCH (test code = 1006) 22.2 PG MCHC (test code = 1007) 30.2 G/DL RDW (test code = 1038) 18.0 % NEUTROPHILS (test code = 1008) 45.3 % LYMPHOCYTES (test code = 1010) 37.0 % MONOCYTES (test code = 1011) 14.1 % EOSINOPHILS (test code = 1012) 1.8 % BASOPHILS (test code = 1013) 1.8 % IMMATURE GRANULOCYTES (test code = 1036) 0.0 % NUCLEATED RBCS (test code = 1065) 0.0 /100WBC'S PLATELET COUNT (test code = 1015) 266 K/UL ABSOLUTE NEUTROPHILS (test c ode = 1066) 1.29 K/UL ABSOLUTE LYMPHOCYTES (test c ode = 1067) 1.05 K/UL ABSOLUTE MONOCYTES (test cod e = 1068) 0.40 K/UL ABSOLUTE EOSINOPHILS (test c ode = 1040) 0.05 K/UL ABSOLUTE BASOPHILS (test cod e = 1069) 0.05 K/UL ABS IMMATURE GRANULOCYTES (t est code = 1020) 0.00 K/UL ABS NUCLEATED RBCS (test cod e = 91627) 0.00 K/UL Fortunato HernándezVAGINAL PATHOGENS DNA [id number] 00:00:00* Test Item Value Reference Range Interpretation Comme nts JANENE SPECIES (test code = 12231) NEGATIVE G. VAGINALIS (test code = 46342) POSITIVE T. VAGINALIS (test code = 27536) NEGATIVE Fortunato HernándezGC AND CHLAMYDIA AMPLIFIED, [id number] 00:00:00* Test Item Value Reference Range Interpretation Comme nts GONORRHEA, TMA (test code = 02637) NEGATIVE CHLAMYDIA, TMA (test code = 64997) NEGATIVE Fortunato HernándezHIV AB/AG COMBO RFLX [id number] 00:00:00* Test Item Value Reference Range Interpretation Comme nts HIV 1/2 4TH GEN, RFLX CONF ( test code = 3514) NON-REACTIVE Fortunato HernándezPAP TEST, THINPREP, [id number] 00:00:00* Test Item Value Reference Range Interpretation Comme nts SOURCE: (test code = 8001) Cervical SLIDES: (test code = 8011) 1 LMP: (test code = 8021) 09/30/2021 SPECIMEN ADEQUACY: (test code = 09863) (NOTE) INTERPRETATION: (test code = 27444) NILM/NO EPITH. ABNORMALITY;SEE BELOW OTHER COMMENTS: (test code = 8081) (NOTE) CURATORIAL SPECIALIST: (test code = 8101) SULAIMAN Raygoza(ASCP) IAC LOCATION: (test code = 26961) (NOTE) CPT: (test code = 8140) (NOTE) Fortunato HernándezACUTE HEPATITIS [id number] 00:00:00* Test Item Value Reference Range Interpretation Comme nts HEPATITIS A IgM (test code = 38988) NON-REACTIVE HEPATITIS B CORE IgM (test c ode = 4644) NON-REACTIVE HEPATITIS B SURF AG (test co de = 2739) NON-REACTIVE HEPATITIS C ANTIBODY (test c ode = 4675) NON-REACTIVE INTERPRETATION HEPATITIS A: (test code = 2552) (NOTE) INTERPRETATION HEPATITIS B: (test code = 30987) (NOTE) INTERPRETATION HEPATITIS C: (test code = 39777) (NOTE) Fortunato HernándezRPR REFLEX TO [id number] 00:00:00* Test Item Value Reference Range Interpretation Comme nts RPR (test code = 54937) NON-REACTIVE RPR TITER (test code = 3500) NOT INDIC. TITER Fortunato HernándezCBC W/AUTO [id number] 00:00:00* Test Item Value Reference Range Interpretation Comme nts WBC (test code = 1001) 2.8 K/UL RBC (test code = 1002) 3.79 M/UL HEMOGLOBIN (test code = 1003) 8.4 G/DL HEMATOCRIT (test code = 1004) 27.8 % MCV (test code = 1005) 73.4 fL MCH (test code = 1006) 22.2 PG MCHC (test code = 1007) 30.2 G/DL RDW (test code = 1038) 18.0 % NEUTROPHILS (test code = 1008) 45.3 % LYMPHOCYTES (test code = 1010) 37.0 % MONOCYTES (test code = 1011) 14.1 % EOSINOPHILS (test code = 1012) 1.8 % BASOPHILS (test code = 1013) 1.8 % IMMATURE GRANULOCYTES (test code = 1036) 0.0 % NUCLEATED RBCS (test code = 1065) 0.0 /100WBC'S PLATELET COUNT (test code = 1015) 266 K/UL ABSOLUTE NEUTROPHILS (test c ode = 1066) 1.29 K/UL ABSOLUTE LYMPHOCYTES (test c ode = 1067) 1.05 K/UL ABSOLUTE MONOCYTES (test cod e = 1068) 0.40 K/UL ABSOLUTE EOSINOPHILS (test c ode = 1040) 0.05 K/UL ABSOLUTE BASOPHILS (test cod e = 1069) 0.05 K/UL ABS IMMATURE GRANULOCYTES (t est code = 1020) 0.00 K/UL ABS NUCLEATED RBCS (test cod e = 15777) 0.00 K/UL Fortunato HernándezVAGINAL PATHOGENS DNA [id number] 00:00:00* Test Item Value Reference Range Interpretation Comme nts JANENE SPECIES (test code = 14796) NEGATIVE G. VAGINALIS (test code = ) POSITIVE T. VAGINALIS (test code = ) NEGATIVE Fortunato HernándezGC AND CHLAMYDIA AMPLIFIED, [id number] 00:00:00* Test Item Value Reference Range Interpretation Comme nts GONORRHEA, TMA (test code = 07713) NEGATIVE CHLAMYDIA, TMA (test code = 77285) NEGATIVE Fortunato HernándezHIV AB/AG COMBO RFLX [id number] 00:00:00* Test Item Value Reference Range Interpretation Comme nts HIV 1/2 4TH GEN, RFLX CONF ( test code = 3514) NON-REACTIVE Fortunato HernándezPAP TEST, THINPREP, [id number] 00:00:00* Test Item Value Reference Range Interpretation Comme nts SOURCE: (test code = 8001) Cervical SLIDES: (test code = 8011) 1 LMP: (test code = 8021) 09/30/2021 SPECIMEN ADEQUACY: (test code = 51247) (NOTE) INTERPRETATION: (test code = 51021) NILM/NO EPITH. ABNORMALITY;SEE BELOW OTHER COMMENTS: (test code = 8081) (NOTE) CURATORIAL SPECIALIST: (test code = 8101) SULAIMAN Raygoza(ASCP) IAC LOCATION: (test code = 28347) (NOTE) CPT: (test code = 8140) (NOTE) Fortunato HernándezACUTE HEPATITIS [id number] 00:00:00* Test Item Value Reference Range Interpretation Comme nts HEPATITIS A IgM (test code = 99839) NON-REACTIVE HEPATITIS B CORE IgM (test c ode = 4644) NON-REACTIVE HEPATITIS B SURF AG (test co de = 2739) NON-REACTIVE HEPATITIS C ANTIBODY (test c ode = 4675) NON-REACTIVE INTERPRETATION HEPATITIS A: (test code = 2552) (NOTE) INTERPRETATION HEPATITIS B: (test code = 46484) (NOTE) INTERPRETATION HEPATITIS C: (test code = 55629) (NOTE) Fortunato HernándezRPR REFLEX TO [id number] 00:00:00* Test Item Value Reference Range Interpretation Comme nts RPR (test code = 02615) NON-REACTIVE RPR TITER (test code = 3500) NOT INDIC. TITER Fortunato HernándezCBC W/AUTO [id number] 00:00:00* Test Item Value Reference Range Interpretation Comme nts WBC (test code = 1001) 2.8 K/UL RBC (test code = 1002) 3.79 M/UL HEMOGLOBIN (test code = 1003) 8.4 G/DL HEMATOCRIT (test code = 1004) 27.8 % MCV (test code = 1005) 73.4 fL MCH (test code = 1006) 22.2 PG MCHC (test code = 1007) 30.2 G/DL RDW (test code = 1038) 18.0 % NEUTROPHILS (test code = 1008) 45.3 % LYMPHOCYTES (test code = 1010) 37.0 % MONOCYTES (test code = 1011) 14.1 % EOSINOPHILS (test code = 1012) 1.8 % BASOPHILS (test code = 1013) 1.8 % IMMATURE GRANULOCYTES (test code = 1036) 0.0 % NUCLEATED RBCS (test code = 1065) 0.0 /100WBC'S PLATELET COUNT (test code = 1015) 266 K/UL ABSOLUTE NEUTROPHILS (test c ode = 1066) 1.29 K/UL ABSOLUTE LYMPHOCYTES (test c ode = 1067) 1.05 K/UL ABSOLUTE MONOCYTES (test cod e = 1068) 0.40 K/UL ABSOLUTE EOSINOPHILS (test c ode = 1040) 0.05 K/UL ABSOLUTE BASOPHILS (test cod e = 1069) 0.05 K/UL ABS IMMATURE GRANULOCYTES (t est code = 1020) 0.00 K/UL ABS NUCLEATED RBCS (test cod e = 09671) 0.00 K/UL Fortunato F AustinVAGINAL PATHOGENS DNA [id number] 00:00:00* Test Item Value Reference Range Interpretation Comme nts JANENE SPECIES (test code = 51424) NEGATIVE G. VAGINALIS (test code = 22373) POSITIVE T. VAGINALIS (test code = 58723) NEGATIVE Fortunato F AustinGC AND CHLAMYDIA AMPLIFIED, [id number] 00:00:00* Test Item Value Reference Range Interpretation Comme nts GONORRHEA, TMA (test code = 71937) NEGATIVE CHLAMYDIA, TMA (test code = 40551) NEGATIVE Fortunato F AustinHIV AB/AG COMBO RFLX [id number] 00:00:00* Test Item Value Reference Range Interpretation Comme nts HIV 1/2 4TH GEN, RFLX CONF ( test code = 3514) NON-REACTIVE Fortunato F EdgarPAP TEST, THINPREP, [id number] 00:00:00* Test Item Value Reference Range Interpretation Comme nts SOURCE: (test code = 8001) Cervical SLIDES: (test code = 8011) 1 LMP: (test code = 8021) 09/30/2021 SPECIMEN ADEQUACY: (test code = 67658) (NOTE) INTERPRETATION: (test code = 03238) NILM/NO EPITH. ABNORMALITY;SEE BELOW OTHER COMMENTS: (test code = 8081) (NOTE) CURATORIAL SPECIALIST: (test code = 8101) SULAIMAN Raygoza(ASCP) IAC LOCATION: (test code = 86811) (NOTE) CPT: (test code = 8140) (NOTE) Fortunato HernándezACUTE HEPATITIS [id number] 00:00:00* Test Item Value Reference Range Interpretation Comme nts HEPATITIS A IgM (test code = 48538) NON-REACTIVE HEPATITIS B CORE IgM (test c ode = 4644) NON-REACTIVE HEPATITIS B SURF AG (test co de = 2739) NON-REACTIVE HEPATITIS C ANTIBODY (test c ode = 4675) NON-REACTIVE INTERPRETATION HEPATITIS A: (test code = 2552) (NOTE) INTERPRETATION HEPATITIS B: (test code = 90564) (NOTE) INTERPRETATION HEPATITIS C: (test code = 56507) (NOTE) Fortunato Moser EdgarRPR REFLEX TO [id number] 00:00:00* Test Item Value Reference Range Interpretation Comme nts RPR (test code = 88700) NON-REACTIVE RPR TITER (test code = 3500) NOT INDIC. TITER Fortunato Moser EdgarCBC W/AUTO [id number] 00:00:00* Test Item Value Reference Range Interpretation Comme nts WBC (test code = 1001) 2.8 K/UL RBC (test code = 1002) 3.79 M/UL HEMOGLOBIN (test code = 1003) 8.4 G/DL HEMATOCRIT (test code = 1004) 27.8 % MCV (test code = 1005) 73.4 fL MCH (test code = 1006) 22.2 PG MCHC (test code = 1007) 30.2 G/DL RDW (test code = 1038) 18.0 % NEUTROPHILS (test code = 1008) 45.3 % LYMPHOCYTES (test code = 1010) 37.0 % MONOCYTES (test code = 1011) 14.1 % EOSINOPHILS (test code = 1012) 1.8 % BASOPHILS (test code = 1013) 1.8 % IMMATURE GRANULOCYTES (test code = 1036) 0.0 % NUCLEATED RBCS (test code = 1065) 0.0 /100WBC'S PLATELET COUNT (test code = 1015) 266 K/UL ABSOLUTE NEUTROPHILS (test c ode = 1066) 1.29 K/UL ABSOLUTE LYMPHOCYTES (test c ode = 1067) 1.05 K/UL ABSOLUTE MONOCYTES (test cod e = 1068) 0.40 K/UL ABSOLUTE EOSINOPHILS (test c ode = 1040) 0.05 K/UL ABSOLUTE BASOPHILS (test cod e = 1069) 0.05 K/UL ABS IMMATURE GRANULOCYTES (t est code = 1020) 0.00 K/UL ABS NUCLEATED RBCS (test cod e = 63203) 0.00 K/UL Fortunato Ehsan HernándezVAGINAL PATHOGENS DNA [id number] 00:00:00* Test Item Value Reference Range Interpretation Comme nts JANENE SPECIES (test code = 09805) NEGATIVE G. VAGINALIS (test code = 98505) POSITIVE T. VAGINALIS (test code = 28801) NEGATIVE Fortunato HernándezGC AND CHLAMYDIA AMPLIFIED, [id number] 00:00:00* Test Item Value Reference Range Interpretation Comme nts GONORRHEA, TMA (test code = 58180) NEGATIVE CHLAMYDIA, TMA (test code = 09516) NEGATIVE Fortunatogail HernándezPAP TEST, THINPREP, [id number] 00:00:00* Test Item Value Reference Range Interpretation Comme nts SOURCE: (test code = 8001) Cervical SLIDES: (test code = 8011) 1 LMP: (test code = 8021) 09/30/2021 SPECIMEN ADEQUACY: (test code = 15896) (NOTE) INTERPRETATION: (test code = 64310) NILM/NO EPITH. ABNORMALITY;SEE BELOW OTHER COMMENTS: (test code = 8081) (NOTE) CURATORIAL SPECIALIST: (test code = 8101) SULAIMAN Raygoza(ASCP) IAC LOCATION: (test code = 17781) (NOTE) CPT: (test code = 8140) (NOTE) Fortunato Ehsan EdgarHIV AB/AG COMBO RFLX [id number] 00:00:00* Test Item Value Reference Range Interpretation Comme nts HIV 1/2 4TH GEN, RFLX CONF ( test code = 3514) NON-REACTIVE Fortunato HernándezACUTE HEPATITIS [id number] 00:00:00* Test Item Value Reference Range Interpretation Comme nts HEPATITIS A IgM (test code = 46756) NON-REACTIVE HEPATITIS B CORE IgM (test c ode = 4644) NON-REACTIVE HEPATITIS B SURF AG (test co de = 3959) NON-REACTIVE HEPATITIS C ANTIBODY (test c ode = 4623) NON-REACTIVE INTERPRETATION HEPATITIS A: (test code = 2552) (NOTE) INTERPRETATION HEPATITIS B: (test code = 55777) (NOTE) INTERPRETATION HEPATITIS C: (test code = 88067) (NOTE) Fortunato HernándezRPR REFLEX TO [id number] 00:00:00* Test Item Value Reference Range Interpretation Comme nts RPR (test code = 47055) NON-REACTIVE RPR TITER (test code = 3500) NOT INDIC. TITER Fortunato HernándezCBC W/AUTO [id number] 00:00:00* Test Item Value Reference Range Interpretation Comme nts WBC (test code = 1001) 2.8 K/UL RBC (test code = 1002) 3.79 M/UL HEMOGLOBIN (test code = 1003) 8.4 G/DL HEMATOCRIT (test code = 1004) 27.8 % MCV (test code = 1005) 73.4 fL MCH (test code = 1006) 22.2 PG MCHC (test code = 1007) 30.2 G/DL RDW (test code = 1038) 18.0 % NEUTROPHILS (test code = 1008) 45.3 % LYMPHOCYTES (test code = 1010) 37.0 % MONOCYTES (test code = 1011) 14.1 % EOSINOPHILS (test code = 1012) 1.8 % BASOPHILS (test code = 1013) 1.8 % IMMATURE GRANULOCYTES (test code = 1036) 0.0 % NUCLEATED RBCS (test code = 1065) 0.0 /100WBC'S PLATELET COUNT (test code = 1015) 266 K/UL ABSOLUTE NEUTROPHILS (test c ode = 1066) 1.29 K/UL ABSOLUTE LYMPHOCYTES (test c ode = 1067) 1.05 K/UL ABSOLUTE MONOCYTES (test cod e = 1068) 0.40 K/UL ABSOLUTE EOSINOPHILS (test c ode = 1040) 0.05 K/UL ABSOLUTE BASOPHILS (test cod e = 1069) 0.05 K/UL ABS IMMATURE GRANULOCYTES (t est code = 1020) 0.00 K/UL ABS NUCLEATED RBCS (test cod e = 14160) 0.00 K/UL Fortunato HernándezGC AND CHLAMYDIA AMPLIFIED, [id number] 00:00:00* Test Item Value Reference Range Interpretation Comme nts GONORRHEA, TMA (test code = 99266) NEGATIVE CHLAMYDIA, TMA (test code = 80577) NEGATIVE Fortunato HernándezVAGINAL PATHOGENS DNA [id number] 00:00:00* Test Item Value Reference Range Interpretation Comme nts JANENE SPECIES (test code = 77145) NEGATIVE G. VAGINALIS (test code = 37395) POSITIVE T. VAGINALIS (test code = 38372) NEGATIVE Fortunato HernándezPAP TEST, THINPREP, [id number] 00:00:00* Test Item Value Reference Range Interpretation Comme nts SOURCE: (test code = 8001) Cervical SLIDES: (test code = 8011) 1 LMP: (test code = 8021) 09/30/2021 SPECIMEN ADEQUACY: (test code = 74597) (NOTE) INTERPRETATION: (test code = 30305) NILM/NO EPITH. ABNORMALITY;SEE BELOW OTHER COMMENTS: (test code = 8081) (NOTE) CURATORIAL SPECIALIST: (test code = 8101) SULAIMAN Raygoza(ASCP) IAC LOCATION: (test code = 98926) (NOTE) CPT: (test code = 8140) (NOTE) Fortunato HernándezHIV AB/AG COMBO RFLX [id number] 00:00:00* Test Item Value Reference Range Interpretation Comme nts HIV 1/2 4TH GEN, RFLX CONF ( test code = 3514) NON-REACTIVE Fortunato HernándezACUTE HEPATITIS [id number] 00:00:00* Test Item Value Reference Range Interpretation Comme nts HEPATITIS A IgM (test code = 55723) NON-REACTIVE HEPATITIS B CORE IgM (test c ode = 4644) NON-REACTIVE HEPATITIS B SURF AG (test co de = 2739) NON-REACTIVE HEPATITIS C ANTIBODY (test c ode = 4621) NON-REACTIVE INTERPRETATION HEPATITIS A: (test code = 2552) (NOTE) INTERPRETATION HEPATITIS B: (test code = 53161) (NOTE) INTERPRETATION HEPATITIS C: (test code = 61365) (NOTE) Fortunato HernándezRPR REFLEX TO [id number] 00:00:00* Test Item Value Reference Range Interpretation Comme nts RPR (test code = 77393) NON-REACTIVE RPR TITER (test code = 3500) NOT INDIC. TITER Fortunato HernándezCBC W/AUTO [id number] 00:00:00* Test Item Value Reference Range Interpretation Comme nts WBC (test code = 1001) 2.8 K/UL RBC (test code = 1002) 3.79 M/UL HEMOGLOBIN (test code = 1003) 8.4 G/DL HEMATOCRIT (test code = 1004) 27.8 % MCV (test code = 1005) 73.4 fL MCH (test code = 1006) 22.2 PG MCHC (test code = 1007) 30.2 G/DL RDW (test code = 1038) 18.0 % NEUTROPHILS (test code = 1008) 45.3 % LYMPHOCYTES (test code = 1010) 37.0 % MONOCYTES (test code = 1011) 14.1 % EOSINOPHILS (test code = 1012) 1.8 % BASOPHILS (test code = 1013) 1.8 % IMMATURE GRANULOCYTES (test code = 1036) 0.0 % NUCLEATED RBCS (test code = 1065) 0.0 /100WBC'S PLATELET COUNT (test code = 1015) 266 K/UL ABSOLUTE NEUTROPHILS (test c ode = 1066) 1.29 K/UL ABSOLUTE LYMPHOCYTES (test c ode = 1067) 1.05 K/UL ABSOLUTE MONOCYTES (test cod e = 1068) 0.40 K/UL ABSOLUTE EOSINOPHILS (test c ode = 1040) 0.05 K/UL ABSOLUTE BASOPHILS (test cod e = 1069) 0.05 K/UL ABS IMMATURE GRANULOCYTES (t est code = 1020) 0.00 K/UL ABS NUCLEATED RBCS (test cod e = 90983) 0.00 K/UL Fortunato HernándezVAGINAL PATHOGENS DNA [id number] 00:00:00* Test Item Value Reference Range Interpretation Comme nts JANENE SPECIES (test code = ) NEGATIVE G. VAGINALIS (test code = ) POSITIVE T. VAGINALIS (test code = ) NEGATIVE Fortunato Moser AustinVAGINAL PATHOGENS DNA [id number] 14:28:58* Test Item Value Reference Range Interpretation Comme nts JANENE SPECIES (test code = ) POSITIVE NEGATIVE A G. VAGINALIS (test code = 60642) POSITIVE NEGATIVE A T. VAGINALIS (test code = 06537) NEGATIVE NEGATIVE UNLESS OTHERWISE INDICATED, ALL TESTING PERFORMED [facility] [employer] [address] [place] [id number] COTTON DISPATCHER: FAROOQ DUBON M.D. [place] NUMBER [id number] [facility] [place]. [id number] VAGINAL PATHOGENS DNA [id number] 00:00:00* Test Item Value Reference Range Interpretation Comme nts JANENE SPECIES (test code = ) POSITIVE G. VAGINALIS (test code = 49548) POSITIVE T. VAGINALIS (test code = 72764) NEGATIVE Fortunato Moser AustinVAGINAL PATHOGENS DNA [id number] 00:00:00* Test Item Value Reference Range Interpretation Comme nts JANENE SPECIES (test code = 45773) POSITIVE G. VAGINALIS (test code = 36166) POSITIVE T. VAGINALIS (test code = 41168) NEGATIVE Fortunato Moser AustinVAGINAL PATHOGENS DNA [id number] 00:00:00* Test Item Value Reference Range Interpretation Comme nts JANENE SPECIES (test code = ) POSITIVE G. VAGINALIS (test code = 30762) POSITIVE T. VAGINALIS (test code = 85337) NEGATIVE Fortunato Moser AustinVAG[facility]AL PATHOGENS DNA [id number] 00:00:00* Test Item Value Reference Range Interpretation Comme nts JANENE SPECIES (test code = 55708) POSITIVE G. VAGINALIS (test code = 23427) POSITIVE T. VAGINALIS (test code = 96397) NEGATIVE Fortunato Moser AustinVAG[facility]AL PATHOGENS DNA [id number] 00:00:00* Test Item Value Reference Range Interpretation Comme nts JANENE SPECIES (test code = 88684) POSITIVE G. VAGINALIS (test code = 10804) POSITIVE T. VAGINALIS (test code = 89733) NEGATIVE Fortunato F AustinVAGINAL PATHOGENS DNA [id number] 00:00:00* Test Item Value Reference Range Interpretation Comme nts JANENE SPECIES (test code = 12209) POSITIVE G. VAGINALIS (test code = 30070) POSITIVE T. VAGINALIS (test code = 00824) NEGATIVE Fortunato HernándezVAGINAL PATHOGENS DNA [id number] 00:00:00* Test Item Value Reference Range Interpretation Comme nts JANENE SPECIES (test code = ) POSITIVE G. VAGINALIS (test code = ) POSITIVE T. VAGINALIS (test code = ) NEGATIVE Fortunato Hernández Notes Date/Time Note Provider Source Fortunato Hernández [facility]2025-07-07 00:00:00 Fortunato Hernández [facility]2025-06-20 00:00:00 Fortunato Hernández [facility]2025-06-12 00:00:00 Fortunato Hernández [facility]2024-12-12 00:00:00 Fortunato Hernández [facility]2024-06-20 00:00:00 Fortunato Hernández [facility]2024-06-13 00:00:00 Fortunato Hernández [facility]2024-02-05 13:03:29 King Villarreal is a 47 year old female PT needing 3 mth follow up for PGY see previous tel encounter. Please call pt at [phone] (home) [id number] 09:57:45 Please assist and close [id number] 12:50:31 1 time OCP refill sent to the pharmacy, will route call to PSS for resident f/u appt. [facility]2024-01-25 10:07:23 King Villarreal is a 47 year old female Pt needs 3 month f/u with PGY. Also Pt will be out of rx norethindrone 0.35 mg this Sunday. Please call pt at [phone] (home) [facility] [address] [place] [address] [facility]
[2025-02-11 16:59] LABS: Absolute Lymphocytes (CBC) 2.0 K/uL (0.7-4.9); Hematocrit 29.6 % (36.0-45.0); Hemoglobin 9.6 g/dL (12.0-15.0); MCH 22.6 pg (27.0-35.0); MCHC 32.3 g/dL (32.0-36.0); MCV 70.0 fL (80-100); MPV 8.1 fL (7.6-11.3); Nucleated RBC Absolute Count 0.0 (0-0); Nucleated Red Blood Cells % 0.1 % (0-0); RBC Red Blood Cell Count 4.24 M/uL (3.86-4.86); White Blood Count 4.80 thou/uL (4.3-10.9)
--- NOTE | 2025-02-11 17:17 | RAD REPORT ---
EXAM: Chest Single View HISTORY: 49 years Female DYSPNEA COMPARISON: No prior exams FINDINGS: LUNGS/PLEURA: The lungs are clear. No pleural effusions or pneumothorax. No pulmonary edema. CARDIAC/MEDIASTINUM: The cardiac silhouette is within normal limits. UPPER ABDOMEN: No significant abnormality. BONES: No acute abnormality. LINES/TUBES/OTHER: N/A IMPRESSION: No evidence of acute cardiopulmonary disease.
[2025-02-11 17:18] LABS: Anion Gap 12.1 mEq/L (5.0-15.0); BUN Blood Urea Nitrogen 19.0 mg/dL (7-18); Glucose Level 126.0 mg/dL (74-106); Potassium 3.1 mEq/L (3.5-5.1); Troponin High Sensitivity 3.3 pg/mL (<58.9)
[2025-02-11] MEDS ORDERED: IPRATROPIUM BROM 0.5MG/2.5ML ONE (17:36)
[2025-02-11] MEDS ORDERED: ALBUTEROL 2.5 MG/3 ML NEB SOL ONE (17:36)
[2025-02-11] MEDS ORDERED: POTASSIUM CL SA 10 MEQ TAB PO ONE (17:37)
--- NOTE | 2025-02-11 18:26 | RAD REPORT ---
EXAMINATION: CTA CHEST PE CLINICAL INDICATION: Female, 49 years old. Dyspnea;SOB TECHNIQUE: This examination was performed according to an angiographic protocol with 3D post-processi ng. This involves 3D reconstructions, MIPs, volume rendered images and/or shaded surface rendering. One or more of the following dose reduction techniques were used: Automated exposure control, adjustm ent of the mA and/or kV according to patient size, and/or iterative reconstruction. Unless otherwise specified, incidental findings do not require dedicated imaging follow-up. [id number]. COMPARISON: No priors. FINDINGS: LOWER NECK: Visualized thyroid gland and soft tissues are normal. MEDIASTINUM AND LYMPH NODES: No mediastinal mass or fluid collection. Normal size mediastinal, hilar, and axillary lymph nodes. THORACIC AORTA: No thoracic aortic aneurysm. PULMONARY ARTERIES: Caliber is within normal limits. No pulmonary emboli identified to the level of t he segmental pulmonary arteries. The subsegmental pulmonary arteries cannot be adequately assessed due to motion/suboptimal contrast opacification. HEART: Normal heart size. No coronary calcifications.No significant pericardial effusion. LUNGS AND AIRWAYS: No evidence of airspace or interstitial process. 5 mm a left lower lobe nodule on image 87, series 401 is likely benign and does not require follow-up. Portions of lung bases were excluded from the [id number]. PLEURA: No pleural effusions. No pneumothorax. OSSEOUS STRUCTURES AND CHEST WALL: No fracture or suspicious osseous lesions. UPPER ABDOMEN: No acute abnormalities. IMPRESSION: Negative for clinically significant pulmonary embolism. No other acute process identified in the [facility] t.
--- NOTE | 2025-02-11 18:46 | ER ---
Nurse's Notes [facility] Name: Andressa Hutchinson Age: 49 yrs Sex: Female : 1975 Arrival Date: 02/11/2025 Time: 16:35 Bed 16 Private MD: Diagnosis: Chest pain on breathing;Wheezing;Dyspnea;Dizziness and giddiness;Hypokalemia Presentation: 02/11 16:46 Chief complaint: Patient states: SOB with exertion and nausea that started today. me1 Received some bad news this afternoon and has chest pain "pressure" "02/15". Coronavirus screen: Vaccine status: Patient reports receiving the 2nd dose of the covid vaccine. Ebola Screen: No symptoms or risks identified at this time. Initial Sepsis Screen: Does the patient meet any 2 criteria? HR > 90 bpm. Does the patient have a suspected source of infection? No. Patient's initial sepsis screen is negative. Risk Assessment: Do you want to hurt yourself or someone else? Patient reports no desire to harm self or others. Onset of symptoms was February 10, 2025. 16:46 Method Of Arrival: Ambulatory [facility] 16:46 Acuity: J LUIS 3 me1 Triage Assessment: 19:22 Respiratory: the patient has moderate shortness of breath. 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 - Infectious Disease History:: Denies. - Social history:: Smoking status: Patient reports the use of cigarette tobacco products, smokes one-half pack cigarettes per day. Screenin:[address] [facility] ED Fall Risk Assessment (Adult) History of falling in the last 3 months, kc6 including since admission No falls in past 3 months (0 pts) Confusion or Disorientation No (0 pts) Intoxicated or Sedated No (0 pts) Impaired Gait No (0 pts) Mobility Assist Device Used No (0 pt) Altered Elimination No (0 pt) Score/Fall Risk Level 0 - 2 = Low Risk Oriented to surroundings. Abuse screen: Denies threats or abuse. Denies injuries from another. Nutritional screening: No deficits noted. Tuberculosis screening: No symptoms or risk factors identified. Assessment: 17:28 General: Appears in no apparent distress. uncomfortable, well groomed, well developed, kc6 Behavior is cooperative, appropriate for age, anxious. Pain: Complains of pain in chest Pain does not radiate. Quality of pain is described as pressure Pain began suddenly, Is continuous. Neuro: Level of Consciousness is awake, alert, obeys commands, Oriented to person, place, time, situation, Appropriate for age. Cardiovascular: Reports chest pain, Heart tones S1 S2 present Capillary refill < 3 seconds Rhythm is regular. Respiratory: Reports shortness of breath on exertion Airway is patent Trachea midline Respiratory effort is even, unlabored, Respiratory pattern is regular, symmetrical, Breath sounds are clear bilaterally. GI: Reports nausea, Patient currently denies abdominal pain, diarrhea, vomiting. : No signs and/or symptoms were reported regarding the genitourinary system. EENT: No signs and/or symptoms were reported regarding the EENT system. Derm: No signs and/or symptoms reported regarding the dermatologic system. Skin is intact, is healthy with good turgor, Skin is pink, warm \\T\\ dry. Musculoskeletal: No signs and/or symptoms reported regarding the musculoskeletal system. Circulation, motion, and sensation intact. Range of motion: intact in all extremities. 18:32 Reassessment: Patient appears in no apparent distress at this time. No changes from kc6 previously documented assessment. Patient and/or family updated on plan of care and expected duration. Pain level reassessed. Patient is alert, oriented x 3, equal unlabored respirations, skin warm/dry/pink. Vital Signs: 16:46 BP 128 / 75; Pulse 102; Resp 19; Temp 98.1; Pulse Ox 100% ; Weight 89.36 kg; Height 5 me1 ft. 2 in. ; Pain 8/10; 17:30 BP 113 / 71; Pulse 92; Resp 17 S; Pulse Ox 97% on R/A; kc6 19:19 BP 121 / 77; Pulse 83; Resp 18; Pulse Ox 99% on R/A; Pain 0/10; tb4 16:46 Body Mass Index 36.03 (89.36 kg, 157.48 cm) me1 16:46 Pain Scale: Adult me1 19:19 Pain Scale: Adult tb4 ED Course: 16:38 Patient arrived in ED. al6 16:38 Saul Haney, EDUCATIONAL SIGN LANGUAGE INTERPRETER is PHCP. cr8 16:38 Jing Martin MD is Attending Physician. cr8 16:41 Divina Valentin, MELLY is Primary Nurse. kc6 16:47 Triage completed. me1 16:47 Arm band placed on Patient placed in an exam room. me1 16:56 Patient has correct armband on for positive identification. Bed in low position. Call kc6 light in reach. Side rails up X 1. Adult w/ patient. isotope technologist on. Pulse ox on. NIBP on. Door closed. Noise minimized. Lights dimmed. Warm blanket given. Pillow given. Verbal reassurance given. 16:56 Inserted saline lock: 20 gauge in left forearm, using aseptic technique. Blood ts3 collected. Flushed with 10 mL NS. 16:56 Initial lab(s) drawn, by ED staff, sent to lab. ts3 16:56 Patient maintains SpO2 saturation greater than 95% on room air. kc6 16:57 EKG done, by janitorial tech. ts3 17:09 XRAY Chest (1 view) In Process Unspecified. EDMS 18:12 CT Chest For PE Angio In Process Unspecified. EDMS 19:08 Primary Nurse role handed off by Divina Valentin, RN rv1 19:19 Provided Education on: Take medication as prescribed. tb4 19:19 No provider procedures requiring assistance completed. IV discontinued, intact, tb4 bleeding controlled, No redness/swelling at site. Pressure dressing applied. Administered Medications: 16:54 Drug: Ondansetron IVP 4 mg IVP once; over 2 minutes Route: IVP; Site: left antecubital; rg5 17:30 Follow up: Response: No adverse reaction kc6 17:43 Drug: DuoNeb Nebulize (2.5 mg - 0.5 mg) 3 ml Nebulizer once Route: Nebulizer; kc6 18:32 Follow up: Response: No adverse reaction kc6 17:43 Drug: Potassium Chloride PO 40 mEq PO once Route: PO; kc6 18:32 Follow up: Response: No adverse reaction kc6 Medication: 19:19 VIS not applicable for this client. tb4 Outcome: 18:46 Discharge ordered by . cr8 19:19 Discharged to home ambulatory, with family, tb4 19:19 Condition: stable 19:19 Discharge instructions given to patient, Instructed on discharge instructions, follow up and referral plans. Demonstrated understanding of instructions, follow-up care, medications, Prescriptions given X 3, 19:23 Patient left the ED. tb4 Signatures: Dispatcher [employer] Divina Waddell, RN RN kc6 Anabel Coburn rv1 Amanda Matthews RN RN me1 Travis Farfan RN RN rg5 Shalini Leong al6 Saul Haney NP EDUCATIONAL SIGN LANGUAGE INTERPRETER cr8 Obdulia Mccarthy RN RN tb4 Ivania Ames 3
--- NOTE | 2025-02-11 18:46 | EDPHYS ---
Physician Documentation [facility] Name: Andressa Hutchinson Age: 49 yrs Sex: Female : 1975 Arrival Date: 02/11/2025 Time: 16:35 Bed 16 Private MD: ED Physician Jing Martin HPI: 02/11 17:07 This 49 yrs old Female presents to ER via Ambulatory with complaints of Shortness Of cr8 Breath, Nausea. 17:07 Patient is a 49-year-old female with a history of hypertension that comes in the cr8 emergency room complaining of nausea that began this morning and shortness of breath. She reports that she has had no vomiting no abdominal pain today. Denies fever or diarrhea. Reports this afternoon she got a distressful phone call and after that she started to have some chest tightness. She reports the dyspnea has been intermittent for a while now. Reports it is worse with exertion (months). She is a tobacco user but denies COPD and asthma. She has been afebrile with no cough or sputum production.. 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 - Infectious Disease History:: Denies. - Social history:: Smoking status: Patient reports the use of cigarette tobacco products, smokes one-half pack cigarettes per day. ROS: 17:07 Constitutional: as per HPI cr8 Exam: 16:51 Constitutional: This is a well developed, well nourished patient who is awake, alert, cr8 and in no acute distress. 17:07 Chest/axilla: Normal chest wall appearance and motion. Nontender with no deformity. cr8 No lesions are appreciated. Abdomen/GI: Soft, non-tender, with normal bowel sounds. No distension. No guarding or rebound. Skin: Warm, dry with normal turgor. Normal color with no rashes, no lesions, and no evidence of cellulitis. MS/ Extremity: Pulses equal, no cyanosis. Neurovascular intact. Full, normal range of motion. Neuro: Awake and alert, GCS 15, oriented to person, place, time, and situation. Cranial nerves II-XII grossly intact. Motor strength 5/5 in all extremities. Sensory grossly intact. 17:07 Cardiovascular: Rate: tachycardic, 17:18 Neck: no jvd cr8 17:18 Respiratory: the patient does not display signs of respiratory distress, Respirations: normal, Breath sounds: wheezing: that is mild, is heard in the right upper lobe, left upper lobe, right middle lobe, left lower lobe, left posterior upper lobe and right posterior upper lobe, 17:18 ECG was reviewed by the Attending Physician. cr8 18:16 Special observations: Patient reports breathing has improved. Feels like her chest is cr8 opened up. No longer dyspneic. Nausea is improved she tolerated p.o. potassium., 18:41 Special observations: Patient vital signs are stable. She is in no acute distress. cr8 States her breathing is better. She does not have any chest tightness. Went over results with her and treatment plan., Vital Signs: 16:46 BP 128 / 75; Pulse 102; Resp 19; Temp 98.1; Pulse Ox 100% ; Weight 89.36 kg; Height 5 me1 ft. 2 in. ; Pain 8/10; 17:30 BP 113 / 71; Pulse 92; Resp 17 S; Pulse Ox 97% on R/A; kc6 19:19 BP 121 / 77; Pulse 83; Resp 18; Pulse Ox 99% on R/A; Pain 0/10; tb4 16:46 Body Mass Index 36.03 (89.36 kg, 157.48 cm) me1 16:46 Pain Scale: Adult me1 19:19 Pain Scale: Adult tb4 MDM: 16:44 Medical Screening Exam initiated cr8 18:41 Data interpreted: Pulse oximetry: is 95 %. Data reviewed: vital signs, nurses notes, cr8 old medical records, lab test result(s), EKG, radiologic studies, CT scan, plain films. ED course: Patient came into the emergency room for chest tightness that began after a stressful phone call, nausea and shortness of breath. On examination she had some wheezing. Considered CHF exacerbation, COPD/asthma, bronchitis, pneumonia, pulmonary embolus. Presentation not consistent with acute cardiac etiologies to include ACS (non ischemic ekg, unremarkable trop), CHF (no evidence of volume overload on exam, no rales or rhonchi, no peripheral edema, no JVD), pericardial effusion / tamponade (no evidence of effusion on the CAT scan). Patient's Wells score for PE is low risk however she was tachycardic so unable to use the PERC score. Went ahead and ordered a CT of the chest per PE protocol. Presentation not consistent with acute respiratory etiologies to include acute PE (CT negative), pneumothorax , allergic etiologies, or infectious etiologies such as PNA. Presentation also not consistent with non-cardiopulmonary causes to include toxidromes, metabolic etiologies such as acidemia or electrolyte derangements, sepsis, neurologic causes (i.e. demyelinating diseases). Patient did have wheezing on exam. She denies history of COPD or asthma. However she is a tobacco user and smokes daily. She was given 1 albuterol treatment and states her symptoms improved. I will go and prescribe Medrol Dosepak and an albuterol inhaler. On her workup her potassium came back low. This is likely related to her chlorthalidone and not volume depletion vomiting decreased p.o. intake or diarrhea. She was given potassium here and tolerated it without vomiting. Will prescribe her 20 daily and advised her to follow-up with her PCP. At reevaluation she did states she has been having intermittent dizziness for 6 months. Considered acute CVA intracranial hemorrhage but since this intermittent been going on for 6 months is unlikely to be these diagnosis. Considered severe anemia but there is no evidence of this on the workup. Suspect this related to her hypertensive medications. Advised her that there was no emergent condition at this time causing her dizziness and highly suggested follow-up with PCP for further evaluation. She has had no vomiting. She was nauseous without any abdominal pain so do not suspect acute emergent intra-abdominal pathology. Considered doing a CT abdomen pelvis but she had no pain on examination and denied any pain so would be low yield. Patient improved after treatment. She was no longer nauseous. She was able to tolerate p.o. intake. She had no chest pain or tightness during evaluation. She will be discharged home in stable condition.. 02/11 16:46 Order name: Basic Metabolic Panel; Complete Time: 17:22 cr8 02/11 16:46 Order name: CBC with Diff cr8 02/11 16:46 Order name: Troponin HS; Complete Time: 17:22 cr8 02/11 16:46 Order name: XRAY Chest (1 view); Complete Time: 17:22 cr8 02/11 17:30 Order name: CT Chest For PE Angio; Complete Time: 19:06 cr8 02/11 16:46 Order name: Cardiac monitoring; Complete Time: 16:56 cr8 02/11 16:46 Order name: EKG - Nurse/Tech; Complete Time: 16:56 cr8 02/11 16:46 Order name: IV Saline Lock; Complete Time: 16:56 cr8 EC:18 Rate is 90 beats/min. Rhythm is regular. QRS [place] is Normal. CO interval is normal. QRS cr8 interval is normal. QT interval is normal. No ST changes noted. Clinical impression: No change from prior ECG. Interpreted by me. Administered Medications: 16:54 Drug: Ondansetron IVP 4 mg IVP once; over 2 minutes Route: IVP; Site: left antecubital; rg5 17:30 Follow up: Response: No adverse reaction kc6 17:43 Drug: DuoNeb Nebulize (2.5 mg - 0.5 mg) 3 ml Nebulizer once Route: Nebulizer; kc6 18:32 Follow up: Response: No adverse reaction kc6 17:43 Drug: Potassium Chloride PO 40 mEq PO once Route: PO; kc6 18:32 Follow up: Response: No adverse reaction kc6 Disposition Summary: 02/11/25 18:46 Discharge Ordered Notes: Location: Home cr8 Condition: Stable cr8 Diagnosis - Chest pain on breathing cr8 - Wheezing cr8 - Dyspnea cr8 - Dizziness and giddiness cr8 - Hypokalemia cr8 Followup: cr8 - With: Private Physician - When: 5 - 6 days - Reason: Recheck today's complaints, Continuance of care, Re-evaluation by your physician Followup: cr8 - With: Emergency Department - When: As needed - Reason: If symptoms return, Trouble breathing, Worsening of condition, Chest pain Discharge Instructions: - Discharge Summary Sheet cr8 - Nonspecific Chest Pain, Adult cr8 - Dizziness cr8 - Shortness of Breath, Adult cr8 - Hypokalemia cr8 Forms: - Medication Reconciliation Form cr8 - Patient Portal Instructions cr8 - Leadership Thank You Letter cr8 Prescriptions: - albuterol sulfate 90 mcg/actuation Inhalation Aerosol Powder, Breath Activated - administer 2 inhalation INHALATION route every 4 to 6 hours as needed for cr8 shortness of breath or wheezing; 1 Each; Refills: 0, Dispense as Written - Zofran 4 mg Oral Tablet - take 1 tablet ORAL route every 12 hours As needed; 6 tablet; Refills: 0, cr8 Product Selection Permitted - Potassium Chloride 10 mEq Oral capsule, extended release - take 2 tablet ORAL route once daily; 10 tablet; Refills: 0, Product Selection cr8 Permitted - Medrol (Bulmaro) 4 mg Oral Tablets, Dose Pack - take 1 tablet ORAL route as directed - follow package instructions; 1 packet; cr8 Refills: 0, Product Selection Permitted Signatures: Dispatcher [employer] EDND Divina Valentin RN RN kc6 Amanda Matthews RN RN me1 Travis Farfan RN RN rg5 Saul Haney NP MANIPULATOR OPERATOR cr8 Corrections: (The following items were deleted from the chart) 17:19 17:07 Patient is a 49-year-old female with a history of hypertension that comes in the cr8 emergency room complaining of nausea that began this morning and shortness of breath. She reports that she has had no vomiting no abdominal pain today. Denies fever or diarrhea. Reports this afternoon she got a distressful phone call and after that she started to have some chest tightness. She reports the dyspnea has been intermittent for a while now. Reports it is worse with exertion. She is a tobacco user but denies COPD and asthma. She has been afebrile with no cough or sputum production.. cr8 17:30 17:30 Chest For PE Angio+CT.RAD.BRZ ordered. [facility] EDND 19:06 18:41 ED course: Patient came into the emergency room for chest tightness that began cr8 after a stressful phone call, nausea and shortness of breath. On examination she had some wheezing. Considered CHF exacerbation, COPD/asthma, bronchitis, pneumonia, pulmonary embolus. Presentation not consistent with acute cardiac etiologies to include ACS (non ischemic ekg, unremarkable trop), CHF (no evidence of volume overload on exam, no rales or rhonchi, no peripheral edema, no JVD), pericardial effusion / tamponade (no evidence of effusion on the CAT scan). Presentation not consistent with acute respiratory etiologies to include acute PE (Wells low risk), pneumothorax , asthma, COPD exacerbation, allergic etiologies, or infectious etiologies such as PNA. Presentation also not consistent with non-cardiopulmonary causes to include toxidromes, metabolic etiologies such as acidemia or electrolyte derangements, sepsis, neurologic causes (i.e. demyelinating diseases).. cr8
[2025-02-11 19:31] VITALS: TEMP 98.1
[2025-02-11 19:34] VITALS: BP 121/77; O2SAT 99
== END 2025-02-11 19:23 | disposition home or self-care (01) ==
LOC: ER 16:35
DX: R07.1 Chest pain on breathing (principal); R06.2 Wheezing; R06.00 Dyspnea, unspecified; R42 Dizziness and giddiness; E87.6 Hypokalemia; F17.210 Nicotine dependence, cigarettes, uncomplicated
CPT/HCPCS: 36415; 71045; 71275; 80048; 84484; 85025; 93005; 96374; 99285; J2405; J7613; J7644; Q9967